=== PATIENT | male | born 1975 | race Caucasian/White ===

== ENCOUNTER 2017-08-07 17:24 | Emergency (ER) | payer BC, SELFPAY ==
[2017-08-07 17:30] VITALS: BP 165/99; PULSE 124; RESP 20; TEMP 36.7; O2SAT 98; BMI 22.5
--- NOTE | 2017-08-07 17:37 | CT_ITS ---
CT head/brain wo con Ordering Physician: Sheryl Huynh MD Patient Age: 41 years: Male HISTORY: ITS.REASON: tingling of L side of face TECHNIQUE: Routine axial CT head without contrast. Brain and bone windows performed and submitted to PACS. COMPARISON :Previous CT head from March 2014 comparison FINDINGS No acute intracranial findings. No hemorrhage. No territorial infarct. No appreciable change. No extra-axial collections. No evident mass or mass effect. The ventricles and basal cisterns appear clear unremarkable. The posterior fossa appears satisfactory. There is an old fracture at the medial wall of left orbit/, with minimal fat between to the lamina papyracea into the ethmoid air cell region.. However this This is old feature unchanged since 2013 reflects old trauma. Otherwise CT bone windows demonstrate the skull to be intact &. Unremarkable. The visualized paranasal sinuses are clear. Mastoid air cells adequately developed with with only scant opacification of a few mastoid air cells towards mastoid tip region on left, barely evident and unchanged since 2014 mastoid air cells towards the left mastoid tip on reflecting scant minor mastoid changes unchanged since 2013 . Moderate cerumen left external auditory canal. Right external auditory canal with likely tiny amount cerumen near the the TM; less likely,tiny developing cholesteatoma IMPRESSION ====== .. No acute intracranial findings. Brain within normal limits. With No significant change since 2013 . incidental observations in text.:. Old fracture medial wall left orbit wall unchanged since 2013
--- NOTE | 2017-08-07 19:12 | PC.NURSE ---
shift change report given to JessicaRN
--- NOTE | 2017-08-07 19:12 | HMH.EDNEU ---
ED Disposition Clinical Impression: CVA (cerebral vascular accident), Hypertension, Tobacco abuse, Non-compliance Disposition: Xfer Short-Term Hosp Condition on Discharge: Fair Forms: Transfer Record - ED - Critical Care Critical Care Time: No Attestation: On 08/07/17, the high probability of a clinically significant, sudden or life threatening deterioration of the following system(s) required my full and direct attention, intervention and personal management. The time I documented below is in addition to time spent performing reported procedures but includes the following listed in this critical care notation. Medical Decision Making - Gus Inquiry Pt receiving controlled substance: No Gus was queried for this patient: No Vital Signs: 08/07/17 17:30 Temperature 98.0 F Temperature Source Oral Pulse Rate [Right Brachial] 124 H Respiratory Rate 20 Blood Pressure [Right Arm] 165/99 Blood Pressure Mean [Right Arm] 121 Blood Pressure Source [Right Arm] Automatic Cuff Blood Pressure Position [Right Arm] Sitting 02 Sat by Pulse Oximetry 98 Oxygen Delivery Method Room Air - Lab Data Lab Results 08/07/17 19:16: POC Glucose 95 08/07/17 19:20: WBC 12.5 H, RBC 4.72, Hgb 14.2, Hct 42.7, MCV 90.5, MCH 30.1, MCHC 33.3, RDW 13.4, Plt Count 311, MPV 6.9 L, Neut % (Auto) 56.3, Lymph % (Auto) 33.3, [place] % (Auto) 8.4, Eos % (Auto) 1.6, Baso % (Auto) 0.3, Neut # (Auto) 7.0, Lymph # (Auto) 4.2, [place] # (Auto) 1.1 H, Eos # (Auto) 0.2, Baso # (Auto) 0.0 Result diagrams: 08/07/17 19:20 Orders (Tests/Meds): ED MEDICATIONS Discontinued Medications Generic Name Dose Route Start Last Admin Trade Name Freq PRN Reason Stop Dose Admin Aspirin 325 mg 08/07/17 19:20 08/07/17 19:24 Aspirin Ec 325mg Tablet PO 08/07/17 19:21 325 mg ONCE ONE Administration ORDERS Category Date Time Status Cardiac Enzymes Stat Lab 08/07/17 19:20 Received Comprehensive Metabolic Panel Stat Lab 08/07/17 19:20 Received Drug Screen,Urine Stat Lab 08/07/17 19:35 Received Ethyl Alcohol Stat Lab 08/07/17 19:20 Received PT/PTT Stat Lab 08/07/17 19:20 Received ECG Request by /Evan Stat Y 08/07/17 19:10 Ordered - CT Data CT Scan: Head Time Received: 19:[address] Reviewed: Yes: I have viewed the radiologist's interpretation Medical Decision Narrative: The patient reports that he had a TIA 6 years ago, quit using his aspirin. I called [facility] stroke service spoke with Dr. Burns who accepted the patient for transfer. 2000 patient remained remained neurologically and hemodynamically stable until transfered. The patient was given 1 enteric-coated aspirin [address] Burns's recommendation. Neuro HPI - General Chief Complaint: Weakness Stated Complaint: Facial Tingling/Motor Skills Lagging Time Seen by Provider: 08/07/17 17:40 Mode of Arrival: Ambulatory Limitations: No Limitations Description of Symptoms (Recalled from ER Triage Doc. by RN): Pt states face has felt flush since yesterday, states has had tingling on L side of face that began aroun 1430 today. Pt states he has felt off today, states pt was attempting to grab keys out of her hand but was unable to states pt seemed off like he didnt know how to grab the keys, states pt grabbed her whole hand. Pt states he checked out while [facility]. - History of Present Illness HPI Narrative: 41 years old white male smoker with history of TIA 6 years ago. He has been experiencing facial flushing for the past 24 hours, 4 PM today when he had an episode of agnosia to the keys in his left hand associated with confusion. The episode resolved and he came to the ED for evaluation. He denies having weakness loss of urine or bowel control. Onset (ago): hour(s) (Symptoms started yesterday and worse at 4 PM.) Timing confirmed by: spouse History of same: Yes Severity: mild Quality: numb Re
--- NOTE | 2017-08-07 19:12 | PC.NURSE ---
MAXI SINGH contacting [facility], stroke team
--- NOTE | 2017-08-07 19:16 | ED_ITS ---
ED Disposition Clinical Impression: CVA (cerebral vascular accident), Hypertension, Tobacco abuse, Non-compliance Disposition: Xfer Short-Term Hosp Condition on Discharge: Fair Forms: Transfer Record - ED - Critical Care Critical Care Time: No Attestation: On 08/07/17, the high probability of a clinically significant, sudden or life threatening deterioration of the following system(s) required my full and direct attention, intervention and personal management. The time I documented below is in addition to time spent performing reported procedures but includes the following listed in this critical care notation. Medical Decision Making - Gus Inquiry Pt receiving controlled substance: No Gus was queried for this patient: No Vital Signs: 08/07/17 17:30 Temperature 98.0 F Temperature Source Oral Pulse Rate [Right Brachial] 124 H Respiratory Rate 20 Blood Pressure [Right Arm] 165/99 Blood Pressure Mean [Right Arm] 121 Blood Pressure Source [Right Arm] Automatic Cuff Blood Pressure Position [Right Arm] Sitting 02 Sat by Pulse Oximetry 98 Oxygen Delivery Method Room Air - Lab Data Lab Results 08/07/17 19:16: POC Glucose 95 08/07/17 19:20: WBC 12.5 H, RBC 4.72, Hgb 14.2, Hct 42.7, MCV 90.5, MCH 30.1, MCHC 33.3, RDW 13.4, Plt Count 311, MPV 6.9 L, Neut % (Auto) 56.3, Lymph % (Auto ) 33.3, [place] % (Auto) 8.4, Eos % (Auto) 1.6, Baso % (Auto) 0.3, Neut # (Auto) 7.0, Lymph # (Auto) 4.2, [place] # (Auto) 1.1 H, Eos # (Auto) 0.2, Baso # (Auto) 0.0 Result diagrams: 08/07/17 19:20 Orders (Tests/Meds): ED MEDICATIONS Discontinued Medications Generic Name Dose Route Start Last Admin Trade Name Freq PRN Reason Stop Dose Admin Aspirin 325 mg 08/07/17 19:20 08/07/17 19:24 Aspirin Ec 325mg Tablet PO 08/07/17 19:21 325 mg ONCE ONE Administration ORDERS Category Date Time Status Cardiac Enzymes Stat Lab 08/07/17 19:20 Received Comprehensive Metabolic Panel Stat Lab 08/07/17 19:20 Received Drug Screen,Urine Stat Lab 08/07/17 19:35 Received Ethyl Alcohol Stat Lab 08/07/17 19:20 Received PT/PTT Stat Lab 08/07/17 19:20 Received ECG Request by /Evan Stat Y 08/07/17 19:10 Ordered - CT Data CT Scan: Head Time Received: 19:[address] Reviewed: Yes: I have viewed the radiologist's interpretation Medical Decision Narrative: The patient reports that he had a TIA 6 years ago, quit using his aspirin. I called [facility] stroke service spoke with Dr. Burns who accepted the patient for transfer. 2000 patient remained remained neurologically and hemodynamically stable until transfered. The patient was given 1 enteric-coated aspirin [address] Burns's recommendation. Neuro HPI - General Chief Complaint: Weakness Stated Complaint: Facial Tingling/Motor Skills Lagging Time Seen by Provider: 08/07/17 17:40 Mode of Arrival: Ambulatory Limitations: No Limitations Description of Symptoms (Recalled from ER Triage Doc. by RN): Pt states face has felt flush since yesterday, states has had tingling on L side of face that began aroun 1430 today. Pt states he has felt off today, states pt was attempting to grab keys out of her hand but was unable to states pt seemed off like he didnt know how to grab the keys, states
--- NOTE | 2017-08-07 19:21 | PC.NURSE ---
MD on the phone with [facility] Pt. accepted at [facility]
[2017-08-07 19:23] LABS: POC Glucose,Bedside 95 mg/dL (70-110)
[2017-08-07 19:32] LABS: Basophils % 0.3 % (0.1-2.0); Eosinophils # 0.2 K/mm3 (0.0-0.4); Eosinophils % 1.6 % (0.1-12.0); Hematocrit 42.7 % (42.0-52.0); Hemoglobin 14.2 g/dL (14.1-18.0); Lymphocytes # 4.2 K/mm3 (0.7-4.5); Lymphocytes % 33.3 K/mm3 (10-50); Mean Corpuscular HGB Conc 33.3 g/dL (31.8-35.4); Mean Corpuscular Hemoglobin 30.1 pg (27.0-31.2); Mean Corpuscular Volume 90.5 fl (80-94); Mean Platelet Volume 6.9 fl (7.4-10.4); Monocytes # 1.1 K/mm3 (0.1-1.0); Monocytes % 8.4 % (1.7-9.3); Neutrophils % 56.3 % (37.0-80.0); Platelet Count 311 K/mm3 (142-424); Red Blood Count 4.72 M/mm3 (4.60-6.20); Red Cell Distribution Width 13.4 % (11.5-17.5); White Blood Count 12.5 K/mm3 (4.8-10.8)
[2017-08-07 19:37] LABS: INR 0.94 (0.9-1.1); Prothrombin Time 10.1 seconds (9.4-11.8)
--- NOTE | 2017-08-07 19:54 | PC.NURSE ---
[facility] was notified of transfer.
[2017-08-07 19:59] LABS: Amphetamine/Metha Screen,Urine Negative ng/mL (<1000); Barbiturates Screen,Urine Negative ng/mL (<200); Benzodiazepines Screen,Urine Negative ng/mL (200); Cannabinoid Screen,Urine Negative ng/mL (<50); Cocaine Screen,Urine Negative ng/g (<300); Methadone Screen,Urine Negative ng/mL (<300); Opiate Screen,Urine Negative ng/mL (<300); Phencyclidine Screen,Urine Negative ng/mL (<25)
[2017-08-07 20:01] LABS: Alanine Aminotransferase 29 U/L (12-78); Albumin Level 4.1 gm/dL (3.4-5.0); Albumin/Globulin Ratio 1.2 (1.1-1.8); Alkaline Phosphatase 66 U/L (46-116); Anion Gap 10.7 mEq/L (5-15); Aspartate Amino Transferase 12 U/L (15-37); Bilirubin,Total 0.3 mg/dL (0.2-1.0); Blood Urea Nitrogen 16 mg/dL (7-18); CKMB Relative Index 2.1 U/L (0-4.0); Calcium 8.9 mg/dL (8.5-10.1); Carbon Dioxide 30 mmol/L (21.0-32.0); Chloride 101 mmol/L (98-107); Creatine Kinase 43 U/L (39-308); Creatine Kinase MB 0.9 ng/ml (0.0-3.6); Creatinine Clearance Estimated 122 mL/min (0-300); Creatinine,Serum 0.75 mg/dL (0.70-1.30); Estimated Glomerular Filt Rate 114 ml/min (>60); GFR (African American) 138 ML/MIN (>60); Globulin 3.4 gm/dl (1.3-3.2); Glucose 98 mg/dL (74-106); Potassium 3.7 mmoL/L (3.5-5.1); Sodium 138 mmol/L (136-145); Total Protein,Serum 7.5 gm/dL (6.4-8.2); Troponin I < 0.02 ng/ml (0.00-0.06)
[2017-08-07 20:05] LABS: Ethyl Alcohol 0 mg/dL (0-99)
--- NOTE | 2017-08-07 20:06 | PC.NURSE ---
There will be a delay in transferring this patient to [facility] because of a trauma patient transfer. Pt. is aware and ok with the delay.
[2017-08-07 21:26] VITALS: BP 160/98; PULSE 86; O2SAT 97
[2017-08-07 21:43] VITALS: BP 131/92; PULSE 88; RESP 14; O2SAT 97
[2017-08-07 22:32] VITALS: BP 146/95; PULSE 90; RESP 16; TEMP 36.7; O2SAT 97
[2017-08-07 22:40] VITALS: BP 146/95; PULSE 90; RESP 16; TEMP 36.7; O2SAT 97
== END 2017-08-07 22:40 | disposition short-term general hospital (02) ==
PROVIDERS: Emergency Provider Emergency Medicine; Family Provider Internal Medicine Adolescent Medicine
DX: I63.9 Cerebral infarction, unspecified (principal); I10 Essential (primary) hypertension; F17.210 Nicotine dependence, cigarettes, uncomplicated; Z88.0 Allergy status to penicillin
CPT/HCPCS: 70450; 80053; 80305; 82550; 82553; 82962; 84484; 85025; 85610; 85730; 93005; 99284

== ENCOUNTER → 2017-11-24 10:28 | Outpatient (REF) | payer BC, SELFPAY ==
[2017-11-24 17:41] LABS: Basophils # 0.1 K/mm3 (0-0.2); Basophils % 0.7 % (0.1-2.0); Eosinophils # 0.1 K/mm3 (0.0-0.4); Eosinophils % 1.6 % (0.1-12.0); Hematocrit 41.2 % (42.0-52.0); Hemoglobin 13.2 g/dL (14.1-18.0); Lymphocytes % 27.7 K/mm3 (10-50); Mean Corpuscular HGB Conc 32.1 g/dL (31.8-35.4); Mean Corpuscular Hemoglobin 29.6 pg (27.0-31.2); Mean Platelet Volume 9.1 fl (7.4-10.4); Monocytes # 0.5 K/mm3 (0.1-1.0); Monocytes % 6.7 % (1.7-9.3); Neutrophils # 4.5 K/mm3 (1.8-7.8); Neutrophils % 63.3 % (37.0-80.0); Platelet Count 265 K/mm3 (142-424); Red Blood Count 4.48 M/mm3 (4.60-6.20); Red Cell Distribution Width 12.8 % (11.5-17.5); White Blood Count 7.2 K/mm3 (4.8-10.8)
[2017-11-24 19:07] LABS: Erythrocyte Sedimentation Rate 8 mm/hr (0-15)
[2017-11-24 20:05] LABS: Alanine Aminotransferase 26 U/L (12-78); Albumin Level 4.4 gm/dL (3.4-5.0); Albumin/Globulin Ratio 1.5 (1.1-1.8); Alkaline Phosphatase 67 U/L (46-116); Anion Gap 9.2 mEq/L (5-15); Aspartate Amino Transferase 12 U/L (15-37); Bilirubin,Total 0.5 mg/dL (0.2-1.0); Blood Urea Nitrogen 10 mg/dL (7-18); Calcium 9.4 mg/dL (8.5-10.1); Carbon Dioxide 29 mmol/L (21.0-32.0); Chloride 106 mmol/L (98-107); Chol/HDL Ratio 5.7 (1-3.5); Cholesterol 187 mg/dL (140-200); Creatinine,Serum 0.87 mg/dL (0.70-1.30); Estimated Glomerular Filt Rate 96 ml/min (>60); Free T4 (Free Thyroxine) 0.94 ng/dl (0.76-1.46); GFR (African American) 116 ML/MIN (>60); Glucose 89 mg/dL (74-106); HDL Cholesterol 33 mg/dL (27-67); LDL Cholesterol 127 mg/dL (0-130); Potassium 4.2 mmoL/L (3.5-5.1); Sodium 140 mmol/L (136-145); Thyroid Stimulating Hormone 0.92 uIU/ml (0.358-3.740); Total Protein,Serum 7.4 gm/dL (6.4-8.2); Triglycerides 137 mg/dL (30-200); VLDL Cholesterol 27 mg/dL (0-40)
== END ==
LOC: LAB 10:28
PROVIDERS: Visit Provider Emergency Medicine
DX: I10 Essential (primary) hypertension (principal)
CPT/HCPCS: 80053; 80061; 84439; 84443; 85025; 85651

== ENCOUNTER → 2018-01-21 15:05 | Outpatient (CLI) | payer BC, SELFPAY ==
--- NOTE | 2018-01-21 15:08 | XR_ITS ---
XR chest 2V HISTORY: Shortness of breath ITS.REASON: shortness of breath ORDERING PHYSICIAN: Yoshi Gusman MD PATIENT AGE: 42 years COMPARISON: Portable upright chest 10/31/2013 FINDINGS: The cardiomediastinal silhouette and pulmonary vascularity are within normal limits. The lungs are clear without infiltrates, suspicious nodules, or pleural effusions. No acute bony abnormalities. Again noted is prominent dextroscoliotic curvature of the thoracic spine.. IMPRESSION: Negative chest, no acute finding
== END ==
PROVIDERS: PCP Emergency Medicine; Visit Provider Emergency Medicine
DX: R06.02 Shortness of breath (principal)
CPT/HCPCS: 71046

== ENCOUNTER → 2018-03-08 17:57 | Outpatient (CLI) | payer BC, SELFPAY ==
[2018-03-08 19:01] LABS: Amphetamine/Metha Screen,Urine Negative ng/mL (<1000); Barbiturates Screen,Urine Negative ng/mL (<200); Benzodiazepines Screen,Urine Negative ng/mL (<200); Cannabinoid Screen,Urine Negative ng/mL (<50); Cocaine Screen,Urine Negative ng/mL (<300); Methadone Screen,Urine Negative ng/mL (<300); Opiate Screen,Urine Positive ng/mL (<300); Phencyclidine Screen,Urine Negative ng/mL (<25)
== END ==
PROVIDERS: Visit Provider Emergency Medicine
DX: Z79.899 Other long term (current) drug therapy (principal)
CPT/HCPCS: 80305

== ENCOUNTER 2018-10-09 20:32 | Emergency (ER) | payer BC, SELFPAY ==
[2018-10-09 20:41] VITALS: BP 136/89; PULSE 73; RESP 16; TEMP 36.8; O2SAT 100; BMI 20.3
--- NOTE | 2018-10-09 20:48 | XR_ITS ---
XR ankle RT min 3V HISTORY: Posttraumatic pain ITS.REASON: ROLLED ANKLE ORDERING PHYSICIAN: Samira Graham APRN PATIENT AGE: 43 years Comparison: None FINDINGS: No fracture or dislocation. No lytic or blastic change. There is normal mineralization.. The joint spaces are well-preserved. No significant degenerative/arthritic changes. No erosive changes evident. IMPRESSION: Negative ankle, no acute finding
--- NOTE | 2018-10-09 20:48 | XR_ITS ---
XR foot RT min 3V HISTORY: Pain following injury ITS.REASON: ROLLED IT ORDERING PHYSICIAN: Samira Graham APRN PATIENT AGE: 43 years COMPARISON: None FINDINGS: No fracture or dislocation. No lytic or blastic change. There is normal mineralization.. The joint spaces are well-preserved. No significant degenerative/arthritic changes. No erosive changes evident. There is some soft tissue splint overlying the medial aspect of the interphalangeal joint of the toe with focal increased soft tissue density at this region. Please correlate with physical exam IMPRESSION: 1. No acute fracture. 2. Increased soft tissue density at the medial aspect of the interphalangeal joint of the great toe suggesting a skin or subcutaneous lesion which needs correlation with physical exam otherwise negative
[2018-10-09 21:06] VITALS: BP 136/89; PULSE 73; RESP 16; TEMP 36.8; O2SAT 100; BMI 20.3
--- NOTE | 2018-10-09 21:13 | HMH.EDUTC ---
[facility] [place] Disposition Clinical Impression: Ankle sprain Qualifiers: Encounter type: initial encounter Involved ligament of ankle: unspecified ligament Laterality: right Qualified Code(s): S93.401A - Sprain of unspecified ligament of right ankle, initial encounter Disposition: Home, Self-Care Condition on Discharge: Good Instructions: How To Perform RICE (Rest, Ice, Compress, Elevate) Additional Instructions: *RICE, Rest the extremity, Ice 15-20 minutes 3-4 times daily, Compress- wear the wayne wrap as discussed as much as possible to help reduce swelling and pain, Elevate the extremity when at rest *Wayne wrap is for support and help control swelling, use it except in the shower. Be sure that is not to tight but not to loose either *Elevate when resting *Ibuprofen every 6-8 hours as needed for pain an inflammation. If need something more can take Tylenol in between doses of Ibuprofen to help Immediately follow up with your family doctor for new or worsening of symptoms, or no noticeable improvement over the next 3-5 days You may call back to the [facility] in the Morning for official reading of your ankle and foot xray Follow up with Dr Fournier for further evaluation and treatment of right ankle pain Return if needed Straight to ER if any life threatening symptoms Referrals: Yoshi Gusman MD [Primary Care Provider] - As needed Kinga Fournier DPM [Staff Physician] - Forms: Work/School Release Time of Disposition: 21:27 Medical Decision Making - Gus Inquiry Pt receiving controlled substance: No Gus was queried for this patient: No Vital Signs: 10/09/18 20:41 10/09/18 21:06 Temperature 98.3 F 98.3 F Temperature Source Oral Oral Pulse Rate [Right] 73 73 Respiratory Rate 16 16 Blood Pressure [Right Arm] 136/89 136/89 Blood Pressure Mean [Right Arm] 104 104 Blood Pressure Source [Right Arm] Automatic Cuff Automatic Cuff Blood Pressure Position [Right Arm] Sitting Sitting 02 Sat by Pulse Oximetry 100 100 Oxygen Delivery Method Room Air Room Air Orders (Tests/Meds): ORDERS Category Date Time Status XR ankle RT min 3V Stat Exams 10/09/18 20:48 Taken XR foot RT min 3V Stat Exams 10/09/18 20:48 Taken - Radiology Data #1 Image(s): Ankle, Foot/Toes Image Reviewed: Yes I reviewed the patient's radiology image Preliminary Findings: No Fracture Seen No acute finding Will place in walking boot crutches and have patient follow up with Dr Fournier [facility] [place] HPI - [place] [id number] @1730 Injured R Ankle Time Seen by Provider: 10/09/18 21:13 Mode of Arrival: Family Vehicle Source of Information: Patient Limitations: No Limitations Description of Symptoms (Recalled from Triage Doc. by RN): Pt states he rolled his right ankle on wednesday, continues to have pain today HEENT Symptoms (Recalled from RN notes): No Resp Symptoms (Recalled from RN notes): No Skin Symptoms (Recalled from RN notes): No MS Symptoms (Recalled from RN notes): Yes Functional Status (Recalled from RN notes): N/A - History of Present Illness Provider Complaint: Patient state that he was walking on hill/incline on Wednesday when he rolled his right ankle State that ever since he has been having pain in his right ankle ever since States that he has been walking on it but when he walks on it bare foot the pain worsens - Related Data Previous Rx's Medication Instructions Recorded clonazepam 0.5 mg tablet 0.5 mg PO BID #60 tab 03/08/18 escitalopram 10 mg tablet 10 mg PO DAILY #90 tab 03/08/18 trazodone 50 mg tablet 50 mg PO DAILY #90 tab 03/08/18 Allergies Allergy/AdvReac Type Severity Reaction Status Date / Time Penicillins Allergy Verified 10/09/18 21:09 - Worker's Comp Is this a Worker's Comp case?: No [facility] History - Hepatitis A Screen Drug use history?: No High risk sexual behaviors?: No History of sexually transmitted infection?: No Currently employed?: No Childcare worker?: No Do you have indoor plumbing?:
--- NOTE | 2018-10-09 21:16 | ED_ITS ---
[facility] [place] Disposition Clinical Impression: Ankle sprain Qualifiers: Encounter type: initial encounter Involved ligament of ankle: unspecified ligament Laterality: right Qualified Code(s): S93.401A - Sprain of unspecified ligament of right ankle, initial encounter Disposition: Home, Self-Care Condition on Discharge: Good Instructions: How To Perform RICE (Rest, Ice, Compress, Elevate) Additional Instructions: *RICE, Rest the extremity, Ice 15-20 minutes 3-4 times daily, Compress- wear the wayne wrap as discussed as much as possible to help reduce swelling and pain, Elevate the extremity when at rest *Wayne wrap is for support and help control swelling, use it except in the shower. Be sure that is not to tight but not to loose either *Elevate when resting *Ibuprofen every 6-8 hours as needed for pain an inflammation. If need something more can take Tylenol in between doses of Ibuprofen to help Immediately follow up with your family doctor for new or worsening of symptoms, or no noticeable improvement over the next 3-5 days You may call back to the [facility] in the Morning for official reading of your ankle and foot xray Follow up with Dr Fournier for further evaluation and treatment of right ankle pain Return if needed Straight to ER if any life threatening symptoms Referrals: Yoshi Gusman MD [Primary Care Provider] - As needed Kinga Fournier DPM [Staff Physician] - Forms: Work/School Release Time of Disposition: 21:27 Medical Decision Making - Gus Inquiry Pt receiving controlled substance: No Gus was queried for this patient: No Vital Signs: 10/09/18 20:41 10/09/18 21:06 Temperature 98.3 F 98.3 F Temperature Source Oral Oral Pulse Rate [Right] 73 73 Respiratory Rate 16 16 Blood Pressure [Right Arm] 136/89 136/89 Blood Pressure Mean [Right Arm] 104 104 Blood Pressure Source [Right Arm] Automatic Cuff Automatic Cuff Blood Pressure Position [Right Arm] Sitting Sitting 02 Sat by Pulse Oximetry 100 100 Oxygen Delivery Method Room Air Room Air Orders (Tests/Meds): ORDERS Category Date Time Status XR ankle RT min 3V Stat Exams 10/09/18 20:48 Taken XR foot RT min 3V Stat Exams 10/09/18 20:48 Taken - Radiology Data #1 Image(s): Ankle, Foot/Toes Image Reviewed: Yes I reviewed the patient's radiology image Preliminary Findings: No Fracture Seen No acute finding Will place in walking boot crutches and have patient follow up with Dr Fournier [facility] [place] HPI - [place] Stated [place]: [place] [id number] @1730 Injured R Ankle Time Seen by Provider: 10/09/18 21:13 Mode of Arrival: Family Vehicle Source of Information: Patient Limitations: No Limitations Description of Symptoms (Recalled from Triage Doc. by RN): Pt states he rolled his right ankle on wednesday, continues to have pain today HEENT Symptoms (Recalled from RN notes): No Resp Symptoms (Recalled from RN notes): No Skin Symptoms (Recalled from RN notes): No MS Symptoms (Recalled from RN notes): Yes Functional Status (Recalled from RN notes): N/A - History of Present Illness Provider Complaint: Patient state that he was walking on hill/incline on Wednesday when he rolled his right ankle State that ever since he has been having pain in his right ankle ever since States that he has been walking on it but when he walks on it bare foot the pain worsens - Related Data
[2018-10-09 21:42] VITALS: BP 140/83; PULSE 64; RESP 20; TEMP 37.1; O2SAT 100
== END 2018-10-09 21:44 | disposition home or self-care (01) ==
PROVIDERS: Emergency Provider Nurse Practitioner; PCP Emergency Medicine
DX: S93.401A Sprain of unspecified ligament of right ankle, initial encounter (principal); W17.81XA Fall down embankment (hill), initial encounter; Y92.89 Other specified places as the place of occurrence of the external cause; F17.210 Nicotine dependence, cigarettes, uncomplicated; Z88.0 Allergy status to penicillin
CPT/HCPCS: 29515; 73610; 73630; 99203

== ENCOUNTER → 2018-11-25 14:08 | Outpatient (CLI) | payer BC, SELFPAY ==
[2018-11-28 20:15] LABS: HSV, IgM I/II Combination 2.88 Ratio (0.00-0.90)
== END ==
PROVIDERS: Visit Provider Nurse Practitioner Family
DX: Z20.2 Contact with and (suspected) exposure to infections with a predominantly sexual mode of transmission (principal)
CPT/HCPCS: 36415; 86790

== ENCOUNTER 2019-11-02 14:00 | Emergency (ER) | payer OTHER, SELFPAY ==
[2019-11-02 14:01] VITALS: BP 116/86; BP 140/87; PULSE 66; PULSE 87; RESP 16; RESP 20; TEMP 37; O2SAT 100; O2SAT 99; BMI 20.3
--- NOTE | 2019-11-02 14:11 | CT_ITS ---
PROCEDURE: CT ABDOMEN PELVIS W CON CLINICAL INDICATION: abd pain COMPARISON: No exams were available for comparison TECHNIQUE: IV Contrast: 75ML OPTIRAY 350 Oral Contrast None Axial images obtained with sagittal and coronal reformats. All CT scans at the facility use one or more dose reduction, viz: automated exposure control, ma/kV adjustment per patient size (including targeted exams where dose is matched to indication, i.e. head), or iterative reconstruction technique. FINDINGS: CT scan abdomen with contrast: Lung bases are clear. Moderate thoracolumbar scoliosis is noted. The enhanced liver, gallbladder, adrenal glands, kidneys, pancreas, and spleen are unremarkable except for scattered splenic calcifications. Aorta, small and large bowel, and area of the appendix, soft tissues and bony structures are otherwise unremarkable. CT scan of the pelvis with contrast: The prostate, seminal vesicles, bladder, soft tissues, and bony structures are unremarkable for mass lesions. IMPRESSION: No mass lesions Dictated by: Aftab Mcginnis 11/02/2019 14:50 Electronically signed by Aftab Mcginnis in [place] 11/02/2019 14:50
[2019-11-02 14:38] LABS: Basophils # 0.1 K/mm3 (0-0.2); Basophils % 0.8 % (0.1-2.0); Eosinophils % 0.4 % (0.1-12.0); Hematocrit 48.5 % (42.0-52.0); Hemoglobin 16.1 g/dL (14.1-18.0); Lymphocytes # 2.3 K/mm3 (0.7-4.5); Lymphocytes % 22.9 % (10-50); Mean Corpuscular HGB Conc 33.2 g/dL (31.8-35.4); Mean Corpuscular Hemoglobin 29.5 pg (27.0-31.2); Mean Corpuscular Volume 88.8 fl (80-94); Mean Platelet Volume 7.1 fl (7.4-10.4); Monocytes # 1.1 K/mm3 (0.1-1.0); Monocytes % 10.7 % (1.7-9.3); Neutrophils # 6.6 K/mm3 (1.8-7.8); Neutrophils % 65.3 % (37.0-80.0); Platelet Count 291 K/mm3 (142-424); Red Blood Count 5.46 M/mm3 (4.60-6.20); Red Cell Distribution Width 13.7 % (11.5-17.5); White Blood Count 10.1 K/mm3 (4.8-10.8)
[2019-11-02 14:45] LABS: Chloride 105 mmol/L (98-107); Potassium 4.1 mmoL/L (3.5-5.1); Sodium 139 mmol/L (136-145)
[2019-11-02 14:47] LABS: Amylase 42 U/L (30-110)
[2019-11-02 14:48] LABS: Alanine Aminotransferase 61 U/L (12-78); Albumin Level 5.3 g/dl (3.5-5.0); Albumin/Globulin Ratio 1.5 (1.1-1.8); Alkaline Phosphatase 78 U/L (38-126); Anion Gap 14.1 mEq/L (5-15); Aspartate Amino Transferase 40 U/L (17-59); Bilirubin,Total 1.3 mg/dl (0.2-1.3); Blood Urea Nitrogen 22 mg/dl (9-20); Calcium 9.7 mg/dl (8.4-10.2); Carbon Dioxide 24 mmol/L (22.0-30.0); Creatinine Clearance Estimated 112 mL/min (50-200); Estimated Glomerular Filt Rate 105 ml/min (>60); GFR (African American) 126 ML/MIN (>60); Globulin 3.5 g/dL (1.3-3.2); Glucose 114 mg/dl (74-100); Lipase 25 U/L (23-300); Total Protein,Serum 8.8 g/dl (6.3-8.2)
--- NOTE | 2019-11-02 14:59 | HMH.EDGENADL ---
ED Disposition Clinical Impression: Gastroenteritis Disposition: Home, Self-Care Condition on Discharge: Good Instructions: DI for Diarrhea and Traveler's Diarrhea -- Adult, DI for Vomiting -- Adult Additional Instructions: Collect diarrhea sample at home and bring back to lab for testing Zofran as needed for nausea and vomiting. Follow-up with primary care doctor in 2 to 3 days. Additional instructions for ABDOMINAL PAIN: Return immediately if worsening abdominal pain, vomiting, shortness of breath, fever, vomiting of blood or abdominal distention. Prescriptions: Ondansetron [Zofran 4mg ODT] 4 mg PO TIDP PRN #10 tab.rapdis PRN Reason: Nausea And Vomiting Transmission Status: Received by [id number] Referrals: Yoshi Gusman MD [Primary Care Provider] - - Critical Care Critical Care Time: No Attestation: On 11/02/19, the high probability of a clinically significant, sudden or life threatening deterioration of the following system(s) required my full and direct attention, intervention and personal management. The time I documented below is in addition to time spent performing reported procedures but includes the following listed in this critical care notation. Medical Decision Making - Medical Records Medical records reviewed: Yes: I reviewed the patient's medical records. - Gus Inquiry Pt receiving controlled substance: No Vital Signs: 11/02/19 14:01 11/02/19 15:01 11/02/19 15:30 Temperature 98.6 F Temperature Source Oral Pulse Rate Pulse Rate [Right] 87 59 L 58 L Respiratory Rate 20 20 18 Blood Pressure Blood Pressure [Right Arm] 116/86 134/91 H 136/86 Blood Pressure Mean [Right Arm] 96 105 102 Blood Pressure Source Blood Pressure Source [Right Arm] Automatic Cuff Automatic Cuff Automatic Cuff Blood Pressure Position Blood Pressure Position [Right Arm] Sitting Supine Supine 02 Sat by Pulse Oximetry 99 100 100 Oxygen Delivery Method Room Air Room Air Room Air 11/02/19 16:00 11/02/19 16:37 Temperature 98.1 F Temperature Source Oral Pulse Rate 58 L Pulse Rate [Right] 58 L Respiratory Rate 18 18 Blood Pressure 136/92 H Blood Pressure [Right Arm] 136/92 H Blood Pressure Mean [Right Arm] 106 Blood Pressure Source Automatic Cuff Blood Pressure Source [Right Arm] Automatic Cuff Blood Pressure Position Sitting Blood Pressure Position [Right Arm] Supine 02 Sat by Pulse Oximetry 100 Oxygen Delivery Method Room Air Room Air - Lab Data Lab results reviewed: Yes: I reviewed the patient's lab results. Lab Results 11/02/19 14:30: Amylase 42 11/02/19 14:30: WBC 10.1, RBC 5.46, Hgb 16.1, Hct 48.5, MCV 88.8, MCH 29.5, MCHC 33.2, RDW 13.7, Plt Count 291, MPV 7.1 L, Neut % (Auto) 65.3, Lymph % (Auto) 22.9, [place] % (Auto) 10.7 H, Eos % (Auto) 0.4, Baso % (Auto) 0.8, Neut # (Auto) 6.6, Lymph # (Auto) 2.3, [place] # (Auto) 1.1 H, Eos # (Auto) 0.0, Baso # (Auto) 0.1 11/02/19 14:30: Sodium 139, Potassium 4.1, Chloride 105, Carbon Dioxide 24, Anion Gap 14.1, BUN 22 H, Creatinine 0.80, Estimated Creat Clear 112, Estimated GFR 105, Est GFR ( Amer) 126, Glucose 114 H, Calcium 9.7, Total Bilirubin 1.3, AST 40, ALT 61, Alkaline Phosphatase 78, Total Protein 8.8 H, Albumin 5.3 H, Globulin 3.5 H, Albumin/Globulin Ratio 1.5, Lipase 25 11/02/19 15:00: Urine Color Yellow, Urine Appearance Clear, Urine pH 6.5, Ur Specific [place] 1.010, Urine Protein Trace, Urine Glucose (UA) Negative, Urine Ketones Negative, Urine Blood Trace-l, Urine Nitrate Negative, Urine Bilirubin Negative, Urine Urobilinogen 0.2, Ur Leukocyte Esterase Negative, Urine RBC Occasional, Urine WBC None, Ur Squamous Epith Cells Occasional, Amorphous Sediment Trace, Urine Bacteria None Result diagrams: 11/02/19 14:30 11/02/19 14:30 Orders (Tests/Meds): ED MEDICATIONS Discontinued Medications Generic Name Dose Route Start Last Admin Trade Name Freq PRN Reason Stop Dose Admin Sodium Chl
[2019-11-02 15:01] VITALS: BP 134/91; PULSE 59; RESP 20; O2SAT 100
[2019-11-02 15:04] LABS: Microscopic, Urine URINE MICROSCOPIC (MICROSCOPIC)
[2019-11-02 15:05] LABS: Appearance,Urine CLEAR (Clear); Bilirubin,Urine Negative (Negative); Blood, Urine TRACE-L (Negative); Color,Urine YELLOW (Yellow); Glucose,Urine (UA) Negative (Negative); Ketones,Urine Negative (Negative); Leukocyte Esterase,Urine Negative (Negative); Nitrate,Urine Negative (Negative); PH,Urine 6.5 (5.0-8.5); Protein,Urine TRACE (Negative); Urobilinogen,Urine 0.2 EU/dl (0.2)
[2019-11-02 15:27] LABS: Amorphous Sediment,Urine Trace /lpf; RBC,Urine Occasional #/hpf (0-3); Squamous Epithelial Cell,Urine Occasional #/hpf (0-5)
[2019-11-02 15:30] VITALS: BP 136/86; PULSE 58; RESP 18; O2SAT 100
[2019-11-02 16:00] VITALS: BP 136/92; PULSE 58; RESP 18; O2SAT 100
--- NOTE | 2019-11-02 16:12 | PC.NURSE ---
Unable to produce diarrhea sample, notified
[2019-11-02 16:37] VITALS: BP 136/92; PULSE 58; RESP 18; TEMP 36.7; O2SAT 100
== END 2019-11-02 16:51 | disposition home or self-care (01) ==
PROVIDERS: Emergency Provider Emergency Medicine; PCP Emergency Medicine
DX: K52.9 Noninfective gastroenteritis and colitis, unspecified (principal); I10 Essential (primary) hypertension; Z86.73 Personal history of transient ischemic attack (TIA), and cerebral infarction without residual deficits; F17.210 Nicotine dependence, cigarettes, uncomplicated
CPT/HCPCS: 74177; 80053; 81001; 82150; 83690; 85025; 96365; 96375; 99284; J2405; Q9967

== ENCOUNTER → 2020-03-06 17:50 | Outpatient (CLI) | payer OTHER, SELFPAY ==
[2020-03-06 18:55] LABS: Basophils # 0.1 K/mm3 (0-0.2); Basophils % 0.8 % (0.1-2.0); Eosinophils # 0.3 K/mm3 (0.0-0.4); Eosinophils % 3.6 % (0.1-12.0); Hematocrit 42.4 % (42.0-52.0); Hemoglobin 13.9 g/dL (14.1-18.0); Lymphocytes # 2.9 K/mm3 (0.7-4.5); Lymphocytes % 38.7 % (10-50); Mean Corpuscular HGB Conc 32.8 g/dL (31.8-35.4); Mean Corpuscular Hemoglobin 29.5 pg (27.0-31.2); Mean Corpuscular Volume 89.8 fl (80-94); Mean Platelet Volume 8.7 fl (7.4-10.4); Monocytes # 0.6 K/mm3 (0.1-1.0); Monocytes % 8.2 % (1.7-9.3); Neutrophils # 3.7 K/mm3 (1.8-7.8); Neutrophils % 48.8 % (37.0-80.0); Platelet Count 295 K/mm3 (142-424); Red Blood Count 4.73 M/mm3 (4.60-6.20); Red Cell Distribution Width 13.4 % (11.5-17.5); White Blood Count 7.6 K/mm3 (4.8-10.8)
[2020-03-06 19:09] LABS: Alanine Aminotransferase 25 U/L (12-78); Albumin Level 4.5 g/dl (3.5-5.0); Albumin/Globulin Ratio 1.7 (1.1-1.8); Alkaline Phosphatase 90 U/L (38-126); Anion Gap 11.2 mEq/L (5-15); Aspartate Amino Transferase 34 U/L (17-59); Bilirubin,Total 0.6 mg/dl (0.2-1.3); Blood Urea Nitrogen 10 mg/dl (9-20); Calcium 9.6 mg/dl (8.4-10.2); Carbon Dioxide 29 mmol/L (22.0-30.0); Chloride 104 mmol/L (98-107); Cholesterol 167 mg/dl (140-200); Estimated Glomerular Filt Rate 122 ml/min (>60); GFR (African American) 148 ML/MIN (>60); Globulin 2.7 g/dL (1.3-3.2); Glucose 96 mg/dl (74-100); HDL Cholesterol 42 mg/dl (40-60); Potassium 4.2 mmoL/L (3.5-5.1); Sodium 140 mmol/L (136-145); Total Protein,Serum 7.2 g/dl (6.3-8.2); Triglycerides 121 mg/dl (30-150); VLDL Cholesterol 24 mg/dL (0-40)
[2020-03-06 19:21] LABS: Direct LDL Cholesterol 107.42 mg/dL (100-129)
[2020-03-06 19:26] LABS: Free T4 (Free Thyroxine) 1.16 ng/dl (0.78-2.19)
[2020-03-06 19:40] LABS: Thyroid Stimulating Hormone 1.13 uIU/mL (0.465-4.68)
== END ==
PROVIDERS: Visit Provider Emergency Medicine
DX: R53.83 Other fatigue (principal); M54.9 Dorsalgia, unspecified; I10 Essential (primary) hypertension; Z79.899 Other long term (current) drug therapy
CPT/HCPCS: 80053; 80061; 84439; 84443; 85025

== ENCOUNTER → 2020-04-24 17:36 | Outpatient (CLI) | payer OTHER, SELFPAY ==
--- NOTE | 2020-04-24 18:02 | XR_ITS ---
PROCEDURE: XR THORACIC SPINE 3V LUMBAR SPINE FIVE VIEWS CLINICAL INDICATION: thoracic back pain Pain between the scapula COMPARISON: CR TSP2 THORACIC SPINE AP LAT-2VIEW from 09/17/2014 CR XR LUMBAR SPINE MIN 4V from 04/24/2020 FINDINGS: Thoracic spine: There is moderate dextroscoliosis of the thoracolumbar spine measuring 43 degrees by the Royal technique. This has slightly increased previously measuring 38 degrees by the Royal technique. No obvious acute fracture or dislocation. No lytic or blastic change. There is some mild wedging along the left border T10 T9 and T8 which does not appear significantly changed. The spine is poorly demonstrated on the lateral view. Degenerative changes are present in the cervical spine is well. Lumbar spine: There is lumbosacral compensatory curvature convex left. No acute finding of the lumbar spine. IMPRESSION: Moderate to severe thoracolumbar scoliosis convex right slightly increased Dictated by: Ac Bee MD 04/25/2020 05:36 Ac Bee MD in [place] 04/25/2020 05:36
== END ==
PROVIDERS: PCP Emergency Medicine; Visit Provider Emergency Medicine
DX: M54.5 Low back pain (principal); M54.6 Pain in thoracic spine
CPT/HCPCS: 72072; 72110

== ENCOUNTER 2020-12-30 22:45 | Observation (INO) | payer OTHER, SELFPAY ==
[2020-12-30 22:45] VITALS: BMI 23.6
--- NOTE | 2020-12-30 22:47 | ECG_ITS ---
APPROVED REPORT Exam: Resting ECG HR:159 bpm ECG Measurements Heart Rate 159 AXES FL 120 P 43 QRSd 78 QRS 7 QT 306 T 119 QTc 497 Conclusion Sinus tachycardia Marked ST abnormality, possible inferior subendocardial injury Abnormal ECG Electronically signed by : Edgar Diaz MD 12/31/2020 17:34:37
--- NOTE | 2020-12-30 22:55 | PC.NURSE ---
Dr Gusman speaking with Dr Hanan with EKG
--- NOTE | 2020-12-30 22:58 | XR_ITS ---
PROCEDURE INFORMATION: Exam: XR Chest Exam date and time: 12/30/2020 10:58 PM Age: 45 years old Clinical indication: Other: Tachycardia; Patient HX: AMS TECHNIQUE: Imaging protocol: XR of the chest. Views: 1 view. COMPARISON: DX CXR2V XR chest 2V 01/21/2018 3:16 PM FINDINGS: Lungs: Patchy left basilar opacity seen. Pleural spaces: Unremarkable. No pleural effusion. No pneumothorax. Heart/Mediastinum: Unremarkable. No cardiomegaly. Bones/joints: Moderate scoliosis again seen. IMPRESSION: Patchy left basilar opacity worrisome for pneumonia
[2020-12-30 23:01] VITALS: BP 108/56; PULSE 174; RESP 24; TEMP 37.1; O2SAT 97; BMI 25.1
--- NOTE | 2020-12-30 23:01 | PC.NURSE ---
Cardizem drip started @ 10mg/hr
[2020-12-30 23:05] LABS: Microscopic, Urine URINE MICROSCOPIC (MICROSCOPIC)
[2020-12-30 23:06] LABS: Appearance,Urine CLEAR (Clear); Blood, Urine Negative (Negative); Color,Urine DK YELLOW (Yellow); Glucose,Urine (UA) Negative (Negative); Ketones,Urine Negative (Negative); Leukocyte Esterase,Urine Negative (Negative); Nitrate,Urine Negative (Negative); Protein,Urine Negative (Negative); Specific Gravity, Urine >= 1.030 (1.005-1.030)
[2020-12-30 23:07] LABS: Coronavirus 19, PCR Not Detected (NotDetected); Influenza A, PCR Not Detected (NotDetected); Influenza B, PCR Not Detected (NotDetected)
[2020-12-30 23:10] LABS: Basophils # 0.2 K/mm3 (0-0.2); Basophils % 1.7 % (0.1-2.0); Eosinophils # 0.7 K/mm3 (0.0-0.4); Eosinophils % 6.3 % (0.1-12.0); Hematocrit 41.7 % (42.0-52.0); Hemoglobin 13.5 g/dL (14.1-18.0); Lymphocytes # 5.2 K/mm3 (0.7-4.5); Lymphocytes % 50.3 % (10-50); Mean Corpuscular HGB Conc 32.5 g/dL (31.8-35.4); Mean Corpuscular Hemoglobin 28.7 pg (27.0-31.2); Mean Corpuscular Volume 88.3 fl (80-94); Mean Platelet Volume 7.6 fl (7.4-10.4); Monocytes # 0.8 K/mm3 (0.1-1.0); Monocytes % 7.3 % (1.7-9.3); Neutrophils # 3.6 K/mm3 (1.8-7.8); Neutrophils % 34.5 % (37.0-80.0); Platelet Count 309 K/mm3 (142-424); Red Blood Count 4.72 M/mm3 (4.60-6.20); Red Cell Distribution Width 13.4 % (11.5-17.5); White Blood Count 10.3 K/mm3 (4.8-10.8)
[2020-12-30 23:13] LABS: Alanine Aminotransferase 29 U/L (12-78); Albumin Level 4.7 g/dl (3.5-5.0); Albumin/Globulin Ratio 1.6 (1.1-1.8); Alkaline Phosphatase 81 U/L (38-126); Anion Gap 16.3 mEq/L (5-15); Aspartate Amino Transferase 33 U/L (17-59); Bilirubin,Total 0.6 mg/dl (0.2-1.3); Blood Urea Nitrogen 15 mg/dl (9-20); Carbon Dioxide 26 mmol/L (22.0-30.0); Chloride 101 mmol/L (98-107); Creatinine Clearance Estimated 105 mL/min (50-200); Estimated Glomerular Filt Rate 91 ml/min (>60); GFR (African American) 110 ML/MIN (>60); Globulin 2.9 g/dL (1.3-3.2); Glucose 151 mg/dl (74-100); MANUAL DIFFERENTIAL MANUAL DIFFERENTIAL (MANUAL DIFF); Potassium 3.3 mmoL/L (3.5-5.1); Sodium 140 mmol/L (136-145); Total Protein,Serum 7.6 g/dl (6.3-8.2)
[2020-12-30 23:14] LABS: Bilirubin,Urine 1+ (Negative)
[2020-12-30 23:18] LABS: C-Reactive Protein 3.2 mg/L (0-4)
[2020-12-30 23:18] LABS: RBC,Urine Occasional #/hpf (0-3); Squamous Epithelial Cell,Urine Occasional #/hpf (0-5); WBC,Urine Occasional #/hpf (0-3)
[2020-12-30 23:19] LABS: Eosinophils % 3 % (0-3); Lymphocytes % 45 % (10-50); Monocytes % 7 % (2-9); Neutrophils % 43 % (42-76); Platelet Estimate Normal; RBC Morphology Normal; Total Cells Counted 100
[2020-12-30 23:20] VITALS: BP 110/63; PULSE 140; RESP 12; O2SAT 94
[2020-12-30 23:29] LABS: Troponin I < 0.01 ng/ml (0.00-0.034)
--- NOTE | 2020-12-30 23:29 | HMH.EDOD ---
ED Disposition Clinical Impression: Scoliosis (and kyphoscoliosis), idiopathic Drug overdose Qualifiers: Encounter type: initial encounter Injury intent: accidental or unintentional Qualified Code(s): T50.901A - Poisoning by unspecified drugs, medicaments and biological substances, accidental (unintentional), initial encounter Atrial flutter Qualifiers: Atrial flutter type: unspecified Qualified Code(s): I48.92 - Unspecified atrial flutter CAP (community acquired pneumonia) Qualifiers: Laterality: left Lung location: lower lobe of lung Qualified Code(s): J18.9 - Pneumonia, unspecified organism Disposition: Admitted as Observation Condition on Discharge: Good Referrals: Yoshi Gusman MD [Primary Care Provider] - - Critical Care Critical Care Time: No Attestation: On 12/30/20, the high probability of a clinically significant, sudden or life threatening deterioration of the following system(s) required my full and direct attention, intervention and personal management. The time I documented below is in addition to time spent performing reported procedures but includes the following listed in this critical care notation. Medical Decision Making - Medical Records Medical records reviewed: Yes: I reviewed the patient's medical records. - Gus Inquiry Pt receiving controlled substance: No Vital Signs: 12/30/20 23:01 12/30/20 23:20 12/30/20 23:30 Temperature 98.8 F Temperature Source Oral Pulse Rate 140 H 145 H Pulse Rate [Right] 174 H Respiratory Rate 24 12 11 L Blood Pressure 110/63 112/62 Blood Pressure [Right Arm] 108/56 L Blood Pressure Mean 79 Blood Pressure Mean [Right Arm] 73 Blood Pressure Source [Right Arm] Automatic Cuff Blood Pressure Position [Right Arm] Supine 02 Sat by Pulse Oximetry 97 94 L 94 L Oxygen Delivery Method Room Air Room Air Nasal Cannula Oxygen Flow Rate (LPM) 2 12/30/20 23:40 12/30/20 23:50 12/30/20 23:57 Temperature Temperature Source Pulse Rate 131 H 124 H 124 H Pulse Rate [Right] Respiratory Rate 10 L 8 L 8 L Blood Pressure 98/57 L 98/57 L 98/59 L Blood Pressure [Right Arm] Blood Pressure Mean Blood Pressure Mean [Right Arm] Blood Pressure Source [Right Arm] Blood Pressure Position [Right Arm] 02 Sat by Pulse Oximetry 92 L 93 L 95 Oxygen Delivery Method Oxygen Flow Rate (LPM) 12/31/20 00:00 12/31/20 00:09 12/31/20 00:32 Temperature Temperature Source Pulse Rate 124 H 147 H 129 H Pulse Rate [Right] Respiratory Rate 12 11 L Blood Pressure 100/59 L 122/68 114/73 Blood Pressure [Right Arm] Blood Pressure Mean Blood Pressure Mean [Right Arm] Blood Pressure Source [Right Arm] Blood Pressure Position [Right Arm] 02 Sat by Pulse Oximetry 93 L 96 95 Oxygen Delivery Method Oxygen Flow Rate (LPM) 12/31/20 00:40 12/31/20 00:50 12/31/20 01:00 Temperature Temperature Source Pulse Rate 117 H 105 H 100 H Pulse Rate [Right] Respiratory Rate 10 L 9 L 6 L Blood Pressure 110/64 108/63 L 103/58 L Blood Pressure [Right Arm] Blood Pressure Mean Blood Pressure Mean [Right Arm] Blood Pressure Source [Right Arm] Blood Pressure Position [Right Arm] 02 Sat by Pulse Oximetry 91 L 89 L 92 L Oxygen Delivery Method Oxygen Flow Rate (LPM) 12/31/20 01:10 12/31/20 01:20 Temperature Temperature Source Pulse Rate 97 H 109 H Pulse Rate [Right] Respiratory Rate 11 L 10 L Blood Pressure 107/63 L 114/69 Blood Pressure [Right Arm] Blood Pressure Mean Blood Pressure Mean [Right Arm] Blood Pressure Source [Right Arm] Blood Pressure Position [Right Arm] 02 Sat by Pulse Oximetry 92 L 94 L Oxygen Delivery Method Oxygen Flow Rate (LPM) - Lab Data Lab results reviewed: Yes: I reviewed the patient's lab results. Lab Results 12/30/20 22:45: WBC 10.3, RBC 4.72, Hgb 13.5 L, Hct 41.7 L, MCV 88.3, MCH 28.7, MCHC 32.5, RDW 13.4, Plt Count 309, MP
[2020-12-30 23:30] VITALS: BP 112/62; PULSE 145; RESP 11; O2SAT 94
--- NOTE | 2020-12-30 23:30 | PC.NURSE ---
pt's set up password [id number]
[2020-12-30 23:32] LABS: Procalcitonin 0.065 ng/mL (0.0-2.0)
[2020-12-30 23:33] LABS: Erythrocyte Sedimentation Rate 13 mm/hr (0-15)
[2020-12-30 23:37] LABS: Amphetamine/Metha Screen,Urine Negative ng/ml (<1000); Benzodiazepines Screen,Urine Negative ng/ml (<200)
[2020-12-30 23:38] LABS: Barbiturates Screen,Urine Negative ng/ml (<200)
[2020-12-30 23:39] LABS: Cannabinoid Screen,Urine Negative ng/ml (<50); Methadone Screen,Urine Negative ng/ml (<300)
[2020-12-30 23:40] VITALS: BP 98/57; PULSE 131; RESP 10; O2SAT 92
[2020-12-30 23:40] LABS: Cocaine Screen,Urine Negative ng/ml (<300); Opiate Screen,Urine Positive ng/ml (<300)
[2020-12-30 23:41] LABS: Phencyclidine Screen,Urine Negative ng/ml (<25)
--- NOTE | 2020-12-30 23:45 | PC.NURSE ---
Pt's wallet was given to his
[2020-12-30 23:50] VITALS: BP 98/57; PULSE 124; RESP 8; O2SAT 93
[2020-12-30 23:57] VITALS: BP 98/59; PULSE 124; RESP 8; O2SAT 95
[2020-12-31] VITALS (19 sets, daily range): BP systolic 100–132; BP diastolic 58–81; PULSE 64–147; RESP 6–18; TEMP 36.7–37; O2SAT 89–100; BMI 25.2
--- NOTE | 2020-12-31 00:09 | CT_ITS ---
PROCEDURE INFORMATION: Exam: CT Head Without Contrast Exam date and time: 12/31/2020 12:09 AM Age: 45 years old Clinical indication: Altered mental status/memory loss; Additional info: AMS TECHNIQUE: Imaging protocol: Computed tomography of the head without contrast. 3D rendering (Not supervised by radiologist): MIP and/or 3D reconstructed images were created by the technologist. Radiation optimization: All CT scans at this facility use at least one of these dose optimization techniques: automated exposure control; mA and/or kV adjustment per patient size (includes targeted exams where dose is matched to clinical indication); or iterative reconstruction. COMPARISON: HEADWO CT head/brain wo con 08/07/2017 5:43 PM FINDINGS: Brain: Normal. No hemorrhage. Unremarkable white matter. No mass effect. Cerebral ventricles: No ventriculomegaly. Paranasal sinuses: Visualized sinuses are unremarkable. No fluid levels. Mastoid air cells: Visualized mastoid air cells are well aerated. Bones/joints: Unremarkable. No acute fracture. Soft tissues: Unremarkable. IMPRESSION: No acute intracranial abnormality.
--- NOTE | 2020-12-31 00:17 | PC.NURSE ---
Addendum entered by Marva Valadez, EMT 12/31/20 00:19: S. kala, RN with pt. Original Note: Pt going to rad at this time.
--- NOTE | 2020-12-31 00:37 | PC.NURSE ---
upon returning back from CT pt is now A&OX3 asking for something to drink
--- NOTE | 2020-12-31 00:42 | PC.NURSE ---
cardizem drip decreased to 5mg/hr
--- NOTE | 2020-12-31 01:17 | PC.NURSE ---
Cardizem GTT stopped, Pt in NSR 96, repeat EKG done
--- NOTE | 2020-12-31 01:19 | ECG_ITS ---
APPROVED REPORT Exam: Resting ECG HR:108 bpm ECG Measurements Heart Rate 108 AXES [place] 174 P 67 QRSd 82 QRS 62 QT 360 T 59 QTc 482 Conclusion Sinus tachycardia Otherwise normal ECG Electronically signed by : Edgar Diaz MD 01/01/2021 14:13:10
--- NOTE | 2020-12-31 01:26 | PC.NURSE ---
Pt speaking with his on the phone at this time
--- NOTE | 2020-12-31 01:36 | PC.NURSE ---
repeat trop sent to lab
[2020-12-31 02:13] LABS: Troponin I 0.01 ng/ml (0.00-0.034)
[2020-12-31 02:14] LABS: T4 (Thyroxine) 8.8 ug/dl (5.53-11.0)
--- NOTE | 2020-12-31 02:25 | PC.NURSE ---
PT ARRIVED TO FLOOR VIA W/C FROM ED W/STAFF AT [id number]
[2020-12-31 05:35] LABS: Basophils % 0.3 % (0.1-2.0); Eosinophils # 0.1 K/mm3 (0.0-0.4); Eosinophils % 0.5 % (0.1-12.0); Hematocrit 36.7 % (42.0-52.0); Hemoglobin 12.2 g/dL (14.1-18.0); Lymphocytes # 1.4 K/mm3 (0.7-4.5); Lymphocytes % 13.9 % (10-50); Mean Corpuscular HGB Conc 33.2 g/dL (31.8-35.4); Mean Corpuscular Hemoglobin 29.6 pg (27.0-31.2); Mean Corpuscular Volume 89.3 fl (80-94); Mean Platelet Volume 8.4 fl (7.4-10.4); Monocytes # 0.4 K/mm3 (0.1-1.0); Monocytes % 4.2 % (1.7-9.3); Neutrophils # 8.4 K/mm3 (1.8-7.8); Neutrophils % 81.1 % (37.0-80.0); Platelet Count 248 K/mm3 (142-424); Red Cell Distribution Width 13.5 % (11.5-17.5); White Blood Count 10.4 K/mm3 (4.8-10.8)
[2020-12-31 05:40] LABS: Anion Gap 8.9 mEq/L (5-15); Blood Urea Nitrogen 13 mg/dl (9-20); Calcium 8.6 mg/dl (8.4-10.2); Carbon Dioxide 27 mmol/L (22.0-30.0); Chloride 106 mmol/L (98-107); Cholesterol 171 mg/dl (140-200); Creatinine Clearance Estimated 168 mL/min (50-200); Estimated Glomerular Filt Rate 145 ml/min (>60); GFR (African American) 176 ML/MIN (>60); HDL Cholesterol 34 mg/dl (40-60); Magnesium 1.4 mg/dl (1.6-2.3); Potassium 4.9 mmoL/L (3.5-5.1); Sodium 137 mmol/L (136-145); Triglycerides 68 mg/dl (30-150); VLDL Cholesterol 14 mg/dL (0-40)
[2020-12-31 05:51] LABS: Direct LDL Cholesterol 113.74 mg/dL (100-129)
[2020-12-31 05:52] LABS: Troponin I 0.02 ng/ml (0.00-0.034)
[2020-12-31 06:01] LABS: Glucose 105 mg/dl (74-100)
--- NOTE | 2020-12-31 06:23 | PC.NURSE ---
Janet GUERRERO NOTIFIED OF CONSULT
--- NOTE | 2020-12-31 07:20 | P.CONPHA_ITS ---
[facility] VTE Monitoring - Patient Demographics Admission date: 12/30/20 Report Date: 12/31/20 Time: 07:20 Allergies/Adverse Reactions: Patient Allergies Penicillins Allergy (Verified 04/08/20 11:42) Height: 1.75 m Weight: 77.111 kg Patient Problems: Current Active Problems Drug overdose (Acute) Atrial flutter (Acute) CAP (community acquired pneumonia) (Acute) Scoliosis (and kyphoscoliosis), idiopathic (Acute) - VTE Risk Labs: VTE Related Lab Results Hgb 12.2 g/dL (14.1-18.0) L 12/31/20 04:55 Hct 36.7 % (42.0-52.0) L 12/31/20 04:55 Plt Count 248 K/mm3 (142-424) 12/31/20 04:55 BUN 13 mg/dl (9-20) 12/31/20 04:55 Creatinine 0.60 mg/dl (0.66-1.25) L D 12/31/20 04:55 Estimated Creat Clear 168 mL/min (50-200) 12/31/20 04:55 Was VTE Risk Assessment Performed: Yes VTE Score: 1 VTE Risk Level: Very Low Risk Clinical Trial Participant: No - Prophylaxis VTE Prophylaxis Ordered?: Yes Types of VTE Prophylaxis: TEDS Knee High
--- NOTE | 2020-12-31 08:00 | CA_ITS ---
APPROVED REPORT EXAM: Comprehensive 2D, Doppler, and color-flow Echocardiogram Circuit Judge: Magda Mera CRT Ht: 5 ft 9 in Wt: 170lbs BSA: 1.93 BP: 114/69 mmHg Indications: Palpitations, Atrial Flutter, Hypertension/HDD, smoker, possible drug overdose, AMS, lethargic limited images due to pectus excavatum, scoliosis 2D Dimensions LVOT 2.02 cm (M/F) 1.5-2.5 M-Mode Dimensions RVDd 3.03 cm (0.9-2.6) LA Diam 2.95 cm (1.9-4.0) LVDd 4.53 cm (3.5-5.7) Ao Diam 3.63 cm (2.0-3.7) LVDs 3.15 cm (3.5-5.7) IVSd 1.47 cm (0.6-1.1) PWd 0.59 cm (0.6-1.1) EF (Teich) 58.00% FS 30.50% EDV (Teich) 93.90 mL ESV (Teich) 39.40 mL LV Diastology E Decel Time 160.00 (160-240 msec) E/A Ratio 1.24 Aortic Valve AO Peak GR. 3.00 mmHg Mitral Valve MV A Velocity 48.00 (40-130 cm/s) E/A Ratio 1.24 MV Decel. Time 160.00 (160-240 ms) Tricuspid Valve TR P. Velocity 225.00 cm/s RAP Estimate 10.00 mmHg RVSP 30.30 mmHg Left Ventricle Left atrium is normal size, left ventricle is normal size, there is no concentric left ventricular hypertrophy, visually estimated ejection fraction 55% with no regional wall motion abnormality, diastolic parameters are inconclusive in the study. Right Ventricle Right atrium and right ventricle are relatively normal size and function. Aortic Valve Aortic valve is grossly normal, there is no aortic stenosis or aortic insufficiency. Mitral Valve Mitral valve is grossly normal, there is trace mitral regurgitation. Tricuspid Valve Tricuspid valve grossly normal, there is trace tricuspid regurgitation, calculated right ventricular systolic pressure is within normal range. Pulmonic Valve Pulmonic valve is poorly visualized. Great Vessels Aortic root is normal size. Inferior vena cava is not well visualized. Pericardium No significant pericardial effusion noted. Conclusion 1. Normal left ventricular size, preserved left ventricular systolic function, visually estimated ejection fraction 55% with no regional wall motion abnormality, diastolic parameters are inconclusive. 2. Trace mitral and tricuspid regurgitation. 3. No significant pericardial effusion noted. Electronically signed by : Keith Willingham MD 12/31/2020 18:21:07
--- NOTE | 2020-12-31 08:05 | HMH.CNCARD ---
History of Present Illness Consult date: 12/31/20 Requesting physician: Yoshi Gusman Consult reason: chest pain Chief complaint: chest pain Additional Medical History:: 1. Tobacco use, 1.5 to 2 packs/day, for 26 years 2. Chronic back pain with chronic narcotic use 3. History of marijuana use 4. Transient atrial flutter related to drug overdose 5. Remote history of TIAs per patient approximately 10 years ago of unknown etiology History of present illness: 45-year-old white male admitted through the emergency department for complaint of chest discomfort after taking Percocet that he obtained from a friend at home. No radiation of symptoms, nausea, vomiting or diaphoresis. He arrived by EMS due to decreased level of arousal at home and being combative upon awaking. In the emergency department patient was noted to have a tachyarrhythmia, felt to be atrial flutter, and was treated with IV diltiazem with subsequent conversion to sinus rhythm. Patient denies any prior cardiac issues, history of diabetes, treatment for hypertension or hyperlipidemia. He denies any alcohol use or other substance abuse. Troponins overnight remained within normal limits. Telemetry this a.m. shows sinus rhythm. Preliminary echocardiogram shows preserved ejection fraction with evidence of tricuspid regurgitation. 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 *Occupational Status:: employed Housing: house Household Members: spouse *Travel in the last 8 weeks: None Family Hx:: No significant family history Meds Home Medications Medication Instructions Recorded Confirmed Type No Known Home Medications 12/30/20 12/30/20 History Allergies Allergy/AdvReac Type Severity Reaction Status Date / Time Penicillins Allergy Verified 04/08/20 11:42 Exam Vital signs and Labs for Last 24 Hours: Temp Pulse Resp BP Pulse Ox 98.1 F 80 18 124/75 95 12/31/20 02:30 12/31/20 04:00 12/31/20 02:30 12/31/20 02:30 12/31/20 03:08 Laboratory Results - last 24 hr 12/30/20 22:45: WBC 10.3, RBC 4.72, Hgb 13.5 L, Hct 41.7 L, MCV 88.3, MCH 28.7, MCHC 32.5, RDW 13.4, Plt Count 309, MPV 7.6, Neut % (Auto) 34.5 L, Lymph % (Auto) 50.3 H, [place] % (Auto) 7.3, Eos % (Auto) 6.3, Baso % (Auto) 1.7, Neut # (Auto) 3.6, Lymph # (Auto) 5.2 H, [place] # (Auto) 0.8, Eos # (Auto) 0.7 H, Baso # (Auto) 0.2, Total Counted 100, Neutrophils % (Manual) 43, Band Neutrophils % 2.0, Lymphocytes % (Manual) 45, Monocytes % (Manual) 7, Eosinophils % (Manual) 3, Platelet Estimate Normal, RBC Morphology Normal 12/30/20 22:45: Sodium 140, Potassium 3.3 L, Chloride 101, Carbon Dioxide 26, Anion Gap 16.3 H, BUN 15, Creatinine 0.90, Estimated Creat Clear 105, Estimated GFR 91, Est GFR ( Amer) 110, Glucose 151 H, Calcium 9.0, Total Bilirubin 0.6, AST 33, ALT 29, Alkaline Phosphatase 81, Troponin I < 0.01, C-Reactive Protein 3.2, Total Protein 7.6, Albumin 4.7, Globulin 2.9, Albumin/Globulin Ratio 1.6, Procalcitonin 0.065 12/30/20 22:45: ESR 13 12/30/20 22:50: Urine Color Dk yellow, Urine Appearance Clear, Urine pH 6.0, Ur Specific [place] >= 1.030, Urine Protein Negative, Urine Glucose (UA) Negative, Urine Ketones Negative, Urine Blood Negative, Urine Nitrate Negative, Urine Bilirubin 1+ A, Urine Urobilinogen 1.0, Ur Leukocyte Esterase Negative, Urine RBC Occasional, Urine WBC Occasional, Ur Squamous Epith Cells Occasional, Urine Bacteria None 12/30/20 22:58: Urine Opiates Screen Positive H, Urine Methadone Screen Negati
--- NOTE | 2020-12-31 08:46 | HMH.HPDC ---
General - General Admission date:: 12/31/20 Discharge date: 12/31/20 *Admission Date: 12/30/20 *Chief complaint: Change in mental status *History of present illness: 45-year-old male was lethargic at home, called 911, when EMS arrived pt was lethargic, but combative on arousal. Pt's states the only thing she knows he took was a percocet. Pt had 5mm PERRL. non verbal and Tachycardic on arrival. Rhythm was A-Flutter and treated with IV diltiazem with conversion to sinus rhythm. He denies any prior cardiac issues, history of diabetes, treatment for hypertension or hyperlipidemia. He denies any alcohol use or other substance abuse. There was no seizure activity noted. 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 *Occupational Status:: employed Housing: house Household Members: spouse *Travel in the last 8 weeks: None Family Hx:: No significant family history Review of Systems - Review of Systems Review of systems:: pertinent systems reviewed and negative unless documented below - Constitutional Denies anorexia, Denies fatigue - Eyes Denies blurry vision, Denies double vision - ENT Denies bleeding gums, Denies dizziness - *Cardiovascular Denies chest pain, Denies shortness of breath - *Respiratory Denies chest congestion, Denies cough - *Gastrointestinal Denies abdominal pain, Denies loose stools - *Musculoskeletal Denies joint pain, Denies muscle weakness - Integumentary/Breasts Denies acne, Denies change in skin color - *Neurologic Reports behavioral changes, Reports confusion, Denies localized weakness, Denies seizure-like activity - Psychiatric Denies abnormal sleep pattern, Denies hearing things others do not hear - Endocrine Denies cold intolerance, Denies heat intolerance - Hematologic/Lymphatic Denies easy bleeding, Denies easy bruising - Allergic/Immunologic Denies GI upset with certain foods, Denies tongue swelling Exam Vital signs and Labs for Last 24 Hours: Temp Pulse Resp BP Pulse Ox 98.0 F 79 18 132/71 100 12/31/20 08:00 12/31/20 08:00 12/31/20 08:00 12/31/20 08:00 12/31/20 08:00 Laboratory Results - last 24 hr 12/30/20 22:45: WBC 10.3, RBC 4.72, Hgb 13.5 L, Hct 41.7 L, MCV 88.3, MCH 28.7, MCHC 32.5, RDW 13.4, Plt Count 309, MPV 7.6, Neut % (Auto) 34.5 L, Lymph % (Auto) 50.3 H, [place] % (Auto) 7.3, Eos % (Auto) 6.3, Baso % (Auto) 1.7, Neut # (Auto) 3.6, Lymph # (Auto) 5.2 H, [place] # (Auto) 0.8, Eos # (Auto) 0.7 H, Baso # (Auto) 0.2, Total Counted 100, Neutrophils % (Manual) 43, Band Neutrophils % 2.0, Lymphocytes % (Manual) 45, Monocytes % (Manual) 7, Eosinophils % (Manual) 3, Platelet Estimate Normal, RBC Morphology Normal 12/30/20 22:45: Sodium 140, Potassium 3.3 L, Chloride 101, Carbon Dioxide 26, Anion Gap 16.3 H, BUN 15, Creatinine 0.90, Estimated Creat Clear 105, Estimated GFR 91, Est GFR ( Amer) 110, Glucose 151 H, Calcium 9.0, Total Bilirubin 0.6, AST 33, ALT 29, Alkaline Phosphatase 81, Troponin I < 0.01, C-Reactive Protein 3.2, Total Protein 7.6, Albumin 4.7, Globulin 2.9, Albumin/Globulin Ratio 1.6, Procalcitonin 0.065 12/30/20 22:45: ESR 13 12/30/20 22:50: Urine Color Dk yellow, Urine Appearance Clear, Urine pH 6.0, Ur Specific [place] >= 1.030, Urine Protein Negative, Urine Glucose (UA) Negative, Urine Ketones Negative, Urine Blood Negative, Urine Nitrate Negative, Urine Bilirubin 1+ A, Urine Urobilinogen 1
== END 2020-12-31 12:00 | disposition home or self-care (01) ==
LOC: ER 12-31 01:41 → 2ND 12-31 02:45
PROVIDERS: Admitting Provider Emergency Medicine; Emergency Provider Emergency Medicine; PCP Emergency Medicine; Visit Provider Emergency Medicine
DX: I48.4 Atypical atrial flutter; Z20.822 Contact with and (suspected) exposure to COVID-19; R07.9 Chest pain, unspecified; T40.2X1A Poisoning by other opioids, accidental (unintentional), initial encounter; F17.210 Nicotine dependence, cigarettes, uncomplicated; I10 Essential (primary) hypertension; Z88.0 Allergy status to penicillin; J18.9 Pneumonia, unspecified organism
CPT/HCPCS: 36415; 70450; 71045; 80048; 80053; 80061; 80305; 81001; 83735; 84145; 84436; 84443; 84484; 85007; 85025; 85651; 86140; 87040; 93005; 93306; 96365; 96366; 96367; 99285; G0378; J1956; U0003

== ENCOUNTER 2022-05-05 18:18 | Emergency (ER) | payer OTHER, SELFPAY ==
[2022-05-05 19:17] VITALS: BP 119/82; PULSE 98; RESP 19; TEMP 36.6; O2SAT 98; BMI 18.7
--- NOTE | 2022-05-05 19:19 | EXP.UTC ---
Discharge Plan Disposition Patient Disposition: Home, Self-Care Prescriptions Prescriptions: No Action levofloxacin 750 MG tablet 750 mg PO DAILY Qty: 5 0RF Referrals Follow up/Referrals: Yoshi Gusman MD [Primary Care Provider] - See instructions Clinical Impressions Clinical Impression: Abdominal pain Instructions Patient Instructions: DI for Acute Abdominal Pain Discharge ED Provider: Yoshi Gusman [facility] General Chief complaint: Abdominal Pain Stated complaint: right side pain Time Seen by Provider: 05/05/22 19:19 Related Data Previous Rx's Medication Instructions Recorded levofloxacin 750 mg tablet 750 mg PO DAILY #5 tabs 12/31/20 Allergies Allergy/AdvReac Type Severity Reaction Status Date / Time Penicillins Allergy Verified 05/05/22 19:23 [facility] Disclaimer: The information contained in this section may have been updated after the patient was seen, as this information can be updated by other users. Social History Smoking Status: Current every day smoker tobacco type: cigarettes packs per day: 1 second hand exposure: Yes alcohol intake: never substance use type: unknown current occupational status: employed Travel in the last 8 weeks: None household members: spouse housing: house ROS Obtained: Yes All systems reviewed & no additional complaints except as documented Constitutional Constitutional: Denies chills, Denies fever(s) and Reports poor appetite ENT Ears, Nose, Mouth, and Throat: Denies dizziness and Denies sore throat Cardiovascular Cardiovascular: Denies dyspnea Respiratory Respiratory: Denies chest congestion, Denies cough and Denies dyspnea Gastrointestinal Gastrointestingal: Reports as per HPI Genitourinary Male Genitourinary: Denies hematuria, Denies urinary frequency, Denies urinary hesitancy, Denies urinary incontinence and Denies urinary urgency Musculoskeletal Musculoskeletal: Denies arthralgias Integumentary/Breasts Skin/Breast: Denies rash Neurologic Neurologic: Denies dizziness Physical Exam General General appearance: alert and in no apparent distress Head Head exam: atraumatic and normocephalic Eye Eye exam: Present normal appearance, PERRL and EOMI ENT ENT exam: Present normal exam, normal oropharynx, mucous membranes moist, TM's normal bilaterally and normal external ear exam Neck Neck exam: Present normal inspection, full ROM and trachea midline; Absent tenderness, meningismus or lymphadenopathy Chest Chest inspection: Present normal inspection and symmetric chest wall rise; Absent tenderness, rash or abscess Respiratory Respiratory exam: Present normal lung sounds bilaterally; Absent respiratory distress, wheezes or stridor Cardiovascular Cardiovascular exam: Present regular rate and normal rhythm; Absent irregular rhythm, systolic murmur, diastolic murmur or JVD Abdominal Exam Abdominal exam: Present soft and normal bowel sounds; Absent distention, tenderness, guarding, rebound, rigidity, psoas sign, obturator sign, heel tap sign, Puentes's sign, Rovsing's sign or tenderness at McBurney's Point Extremities Exam Extremities exam: Present normal inspection and full ROM; Absent tenderness Back Exam Back exam: Present normal inspection and full ROM; Absent tenderness, CVA tenderness (R) or CVA tenderness (L) Neurological Exam Neurological exam: Present alert, oriented X3 and CN II-XII intact Psychiatric Psychiatric exam: Present normal affect and normal mood Skin Skin exam: Present warm, dry, intact and normal color Lymphatic Lymphatic Findings: no adenopathy Medical Decision Making Medical Records Medical records reviewed: No I reviewed the patient's medical records. Gus Inquiry Pt receiving controlled substance: No Lab Data Result diagrams: 05/05/22 19:41 05/05/22 19:41 Medical Decision Narrative: He was transferred to the er due to h
[2022-05-05 19:27] LABS: Apearance,Urine Clear (Clear); Bilirubin,Urine Negative (Negative); Blood, Urine Negative (Negative); Color,Urine Yellow (Yellow); Glucose,Urine (UA) Negative (Negative); Ketones,Urine Negative (Negative); Protein,Urine Negative (Negative); UTC Leukocyte Esterase,Urine Negative (Negative); UTC Nitrate,Urine Negative (Negative); Urobilinogen,Urine 1 EU/dl (0.2)
[2022-05-05 19:55] LABS: Basophils # 0.1 K/mm3 (0-0.2); Basophils % 0.6 % (0.1-2.0); Eosinophils # 0.4 K/mm3 (0.0-0.4); Eosinophils % 3.2 % (0.1-12.0); Hematocrit 37.3 % (42.0-52.0); Hemoglobin 12.5 g/dL (14.1-18.0); Lymphocytes # 3.1 K/mm3 (0.7-4.5); Mean Corpuscular HGB Conc 33.5 g/dL (31.8-35.4); Mean Corpuscular Hemoglobin 29.2 pg (27.0-31.2); Monocytes # 0.6 K/mm3 (0.1-1.0); Monocytes % 4.6 % (1.7-9.3); Neutrophils # 7.8 K/mm3 (1.8-7.8); Neutrophils % 65.5 % (37.0-80.0); Platelet Count 299 K/mm3 (142-424); Red Blood Count 4.28 M/mm3 (4.60-6.20); Red Cell Distribution Width 14.1 % (11.5-17.5)
[2022-05-05 20:00] LABS: Lipase 12 U/L (23-300)
[2022-05-05 20:01] LABS: Alanine Aminotransferase 27 U/L (12-78); Albumin Level 4.7 g/dl (3.5-5.0); Alkaline Phosphatase 60 U/L (38-126); Amylase 49 U/L (30-110); Anion Gap 13.4 mEq/L (5-15); Aspartate Amino Transferase 28 U/L (17-59); Bilirubin,Total 0.3 mg/dl (0.2-1.3); Blood Urea Nitrogen 6 mg/dl (9-20); Calcium 9.4 mg/dl (8.4-10.2); Carbon Dioxide 27 mmol/L (22.0-30.0); Chloride 105 mmol/L (98-107); Creatinine Clearance Estimated 116 mL/min (50-200); Estimated Glomerular Filt Rate 121 ml/min (>60); GFR (African American) 146 ML/MIN (>60); Globulin 2.4 g/dL (1.3-3.2); Glucose 93 mg/dl (74-100); Potassium 3.4 mmoL/L (3.5-5.1); Sodium 142 mmol/L (136-145); Total Protein,Serum 7.1 g/dl (6.3-8.2)
[2022-05-05 21:15] VITALS: BP 129/74; PULSE 89; RESP 17; TEMP 36.7; O2SAT 99; BMI 20.3
--- NOTE | 2022-05-05 21:15 | CT_ITS ---
PROCEDURE INFORMATION: Exam: CT Abdomen And Pelvis With Contrast Exam date and time: 05/05/2022 9:37 PM Age: 46 years old Clinical indication: Abdominal pain; Additional info: R side abd pain TECHNIQUE: Imaging protocol: Computed tomography of the abdomen and pelvis with contrast. Radiation optimization: All CT scans at this facility use at least one of these dose optimization techniques: automated exposure control; mA and/or kV adjustment per patient size (includes targeted exams where dose is matched to clinical indication); or iterative reconstruction. Contrast material: ISOVUE; Contrast volume: 75 ml; Contrast route: IV; COMPARISON: CT ABDOMEN PELVIS W CON 11/02/2019 2:30 PM FINDINGS: Liver: Intrahepatic and extrahepatic bile duct dilation with CBD measuring 1.1 cm. Gallbladder and bile ducts: Moderately distended gallbladder without radiodense stone Pancreas: Normal enhancement. No ductal dilation. Spleen: There are multiple splenic calcifications likely on the basis of prior granulomatous exposure. Adrenal glands: No mass. Kidneys and ureters: No hydronephrosis. Stomach and bowel: No obstruction. No mucosal thickening. Appendix: No evidence of appendicitis. Intraperitoneal space: No significant fluid collection. No free air. Vasculature: No abdominal aortic aneurysm. Lymph nodes: No enlarged lymph nodes. Urinary bladder: Asymmetric appearing bladder wall thickening measuring 7 mm posterior and inferior. Urinary bladder is under distended. Reproductive: No acute abnormality. Bones/joints: Pectus excavatum. Soft tissues: No soft tissue swelling. IMPRESSION: 1. Intrahepatic and extrahepatic bile duct dilation concerning for obstruction. Correlation with LFTs recommended. 2. Asymmetric appearing bladder wall thickening for which correlation with UA is recommended. Mucosal mass cannot be radiographically excluded
[2022-05-05 21:25] LABS: Amylase 51 U/L (30-110)
[2022-05-05 22:07] LABS: Lactic Acid 0.6 mmol/L (0.7-2.1)
--- NOTE | 2022-05-05 23:15 | HMH.EDABDPAI ---
Discharge Plan Disposition Patient Disposition: Home, Self-Care Chief Complaint: Abdominal Pain Prescriptions Prescriptions: No Action levofloxacin 750 MG tablet 750 mg PO DAILY Qty: 5 0RF Referrals Follow up/Referrals: Yoshi Gusman MD [Primary Care Provider] - See instructions Clinical Impressions Clinical Impression: Abdominal pain Instructions Patient Instructions: DI for Acute Abdominal Pain Discharge ED Provider: Yoshi Gusman Abdominal Pain HPI General Chief Complaint: Abdominal Pain Stated Complaint: right side pain Time Seen by Provider: 05/05/22 19:19 Mode of Arrival: Family Vehicle Source of Information: Patient Limitations: No Limitations Description of Symptoms (Recalled from ER Triage Doc. by RN): Pt c/o RLQ ABD pain. He also report soft-loose stool for 1 week and 1 episode of vomiting yesterday. He denies any fever, chills, or nausea. He does report hot flashes occasionally. Mild tenderness to R side upon palpation. Denies any hx stone, voiding issues or gross hematuria. 3 History of Present Illness HPI narrative: pt with rt sided abd pain over the last week - worse after meals - no fever/rash or trauma complaint: abdominal pain Onset (ago): day(s) Consistency: intermittent Location: RUQ Severity: moderate Associated symptoms: denies other symptoms Related Data Previous Rx's Medication Instructions Recorded levofloxacin 750 mg tablet 750 mg PO DAILY #5 tabs 12/31/20 Allergies Allergy/AdvReac Type Severity Reaction Status Date / Time Penicillins Allergy Verified 05/05/22 19:23 [facility] Disclaimer: The information contained in this section may have been updated after the patient was seen, as this information can be updated by other users. Social History Smoking Status: Current every day smoker tobacco type: cigarettes packs per day: 1 second hand exposure: Yes alcohol intake: never substance use type: unknown current occupational status: employed Travel in the last 8 weeks: None household members: spouse housing: house ROS Obtained: Yes All systems reviewed & no additional complaints except as documented Physical Exam General General appearance: alert Head Head exam: normocephalic Eye Eye exam: Present PERRL and EOMI; Absent scleral icterus ENT ENT exam: Present mucous membranes moist Neck Neck exam: Present trachea midline Respiratory Respiratory exam: Present normal lung sounds bilaterally; Absent respiratory distress Cardiovascular Cardiovascular exam: Present regular rate Abdominal Exam Abdominal exam: Present soft, tenderness and Puentes's sign; Absent guarding, rebound or rigidity Abdominal tenderness: Present RUQ and moderate Extremities Exam Extremities exam: Present full ROM Back Exam Back exam: Absent CVA tenderness (R) Neurological Exam Neurological exam: Present alert, oriented X3 and CN II-XII intact; Absent motor sensory deficit Psychiatric Psychiatric exam: Present normal affect Skin Skin exam: Absent rash Medical Decision Making Medical Records Medical records reviewed: Yes I reviewed the patient's medical records. Gus Inquiry Pt receiving controlled substance: No Vital Signs: 05/05/22 19:17 05/05/22 21:15 Temperature 97.8 F 98.0 F Temperature Source Oral Oral Pulse Rate [Left Radial] 98 H 89 Respiratory Rate 19 17 Blood Pressure [Right Arm] 119/82 129/74 Blood Pressure Mean [Right Arm] 94 92 02 Sat by Pulse Oximetry 98 99 Oxygen Delivery Method Room Air Lab Data Lab results reviewed: Yes I reviewed the patient's lab results. Lab Results 05/05/22 14:41: Amylase 51 05/05/22 19:17: Urine Color Yellow, Urine Appearance Clear, Urine pH 6.0, Ur Specific [place] 1.020, Urine Protein Negative, Urine Glucose (UA) Negative, Urine Ketones Negative, Urine Blood Negative, Urine Nitrate Negative, Urine Bilirubin Negative, Urine Urobilinogen 1, Ur L
[2022-05-05 23:23] VITALS: BP 128/75; PULSE 75; RESP 16; TEMP 36.8; O2SAT 98
== END 2022-05-05 23:39 | disposition home or self-care (01) ==
LOC: UTC 18:29 → ER 20:51
PROVIDERS: Nurse Practitioner Family; Emergency Provider Emergency Medicine; PCP Emergency Medicine
DX: R10.11 Right upper quadrant pain (principal); R10.31 Right lower quadrant pain; R19.7 Diarrhea, unspecified; R11.10 Vomiting, unspecified; F17.210 Nicotine dependence, cigarettes, uncomplicated; Z79.899 Other long term (current) drug therapy; Z88.0 Allergy status to penicillin
CPT/HCPCS: 74177; 80053; 81003; 82150; 83605; 83690; 85025; 96360; 99284; Q9967

== ENCOUNTER 2022-09-27 19:06 | Emergency (ER) | payer OTHER, SELFPAY ==
[2022-09-27 19:19] VITALS: BP 134/96; PULSE 74; RESP 18; O2SAT 99
[2022-09-27 19:20] VITALS: BP 134/96; PULSE 86; RESP 16; TEMP 36.8; O2SAT 99; BMI 20.3
--- NOTE | 2022-09-27 19:24 | CT_ITS ---
PROCEDURE INFORMATION: Exam: CT Abdomen And Pelvis Without Contrast Exam date and time: 09/27/2022 7:34 PM Age: 47 years old Clinical indication: Abdominal pain; Localized; Right lower quadrant (rlq); Additional info: Rlq pain TECHNIQUE: Imaging protocol: Computed tomography of the abdomen and pelvis without contrast. Radiation optimization: All CT scans at this facility use at least one of these dose optimization techniques: automated exposure control; mA and/or kV adjustment per patient size (includes targeted exams where dose is matched to clinical indication); or iterative reconstruction. REPORTING DATA: Count of CT and Cardiac NM exams in prior 12 months: This patient has received [address] and 0 known cardiac nuclear medicine studies in the 12 months prior to the current study. COMPARISON: CT ABDOMEN PELVIS W CON 05/05/2022 9:37 PM FINDINGS: Lungs: Minor atelectasis or fibrosis in the lung bases. Heart: Heart size normal. Mediastinal space: The visualized distal esophagus is largely contracted without gross abnormality. Liver: Normal contour. No mass lesions. Moderate chronic dilatation of the intrahepatic bile ducts unchanged. Gallbladder and bile ducts: Gallbladder is unremarkable. Chronic moderate dilatation of the common hepatic duct and common bile duct unchanged measuring up to 10 mm diameter. Pancreas: Severe pancreatic atrophy without acute abnormality. No pancreatic ductal dilatation. Spleen: Granulomatous calcifications in the spleen without acute splenic abnormality. Adrenal glands: Normal. No adrenal mass. Kidneys and ureters: No acute abnormalities. No hydronephrosis or hydroureter. No urinary tract stones are identified. Stomach and bowel: The stomach is unremarkable. The small bowel is nondilated with no gross abnormality. There is a large amount of stool distributed throughout the colon suggesting constipation. Appendix: The appendix is normal in caliber and demonstrates no evidence of appendicitis. 3 mm nonobstructive calcified appendicolith at the appendiceal base again noted. Intraperitoneal space: No free fluid or air. Vasculature: No acute process. No abdominal aortic aneurysm. Lymph nodes: Borderline enlarged bilateral inguinal and external iliac nodes, nonspecific. Urinary bladder: The urinary bladder is largely contracted with wall thickening which may relate to its contracted status. Mild adjacent stranding. Correlate with UA for evidence of cystitis. Reproductive: Mildly enlarged prostate. Vasectomy clips noted bilaterally. Bones/joints: No acute osseous abnormalities. Moderate rightward convexity thoracolumbar scoliotic curvature and pectus excavatum again noted. Soft tissues: Very small fatty right inguinal hernia with no bowel herniation or changes of strangulation. IMPRESSION: 1. No appendicitis. No urolithiasis or hydronephrosis. 2. There is a large amount of stool distributed throughout the colon suggesting constipation. 3. Chronic moderate dilatation of the intrahepatic and extrahepatic bile ducts, unchanged from 05/05/2022. No obstructive mass lesions or stones are identified by CT. Clinical/laboratory correlation recommended to exclude evidence of biliary obstruction. Consider sonographic assessment as clinically indicated. 4. The urinary bladder is largely contracted with wall thickening which may relate to its contracted status. Mild adjacent stranding. Correlate with UA for evidence of cystitis. 5. Additional nonemergent findings detailed above.
[2022-09-27 19:34] LABS: Microscopic, Urine URINE MICROSCOPIC (MICROSCOPIC)
[2022-09-27 19:38] LABS: Basophils # 0.1 K/mm3 (0-0.2); Basophils % 0.6 % (0.1-2.0); Eosinophils # 0.2 K/mm3 (0.0-0.4); Eosinophils % 1.9 % (0.1-12.0); Hematocrit 45.5 % (42.0-52.0); Hemoglobin 14.9 g/dL (14.1-18.0); Lymphocytes # 2.8 K/mm3 (0.7-4.5); Lymphocytes % 24.4 % (10-50); Mean Corpuscular HGB Conc 32.7 g/dL (31.8-35.4); Mean Corpuscular Hemoglobin 28.5 pg (27.0-31.2); Mean Corpuscular Volume 87.1 fl (80-94); Mean Platelet Volume 7.9 fl (7.4-10.4); Monocytes # 0.7 K/mm3 (0.1-1.0); Monocytes % 5.7 % (1.7-9.3); Neutrophils # 7.8 K/mm3 (1.8-7.8); Neutrophils % 67.5 % (37.0-80.0); Platelet Count 298 K/mm3 (142-424); Red Blood Count 5.23 M/mm3 (4.60-6.20); Red Cell Distribution Width 13.8 % (11.5-17.5); White Blood Count 11.6 K/mm3 (4.8-10.8)
[2022-09-27 19:40] LABS: Appearance,Urine CLEAR (Clear); Blood, Urine Negative (Negative); Color,Urine DK YELLOW (Yellow); Glucose,Urine (UA) Negative (Negative); Ketones,Urine Negative (Negative); Leukocyte Esterase,Urine Negative (Negative); Nitrate,Urine Negative (Negative); PH,Urine 5.5 (5.0-8.5); Protein,Urine 1+ (Negative); Specific Gravity, Urine >= 1.030 (1.005-1.030)
[2022-09-27 19:41] LABS: Bilirubin,Urine 1+ (Negative)
[2022-09-27 19:41] LABS: Chloride 100 mmol/L (98-107); Potassium 4.3 mmoL/L (3.5-5.1); Sodium 139 mmol/L (136-145)
[2022-09-27 19:44] LABS: Alanine Aminotransferase 28 U/L (12-78); Albumin Level 5.5 g/dl (3.5-5.0); Albumin/Globulin Ratio 1.6 (1.1-1.8); Alkaline Phosphatase 71 U/L (38-126); Amylase 54 U/L (30-110); Anion Gap 16.3 mEq/L (5-15); Aspartate Amino Transferase 39 U/L (17-59); Bilirubin,Total 0.8 mg/dl (0.2-1.3); Blood Urea Nitrogen 12 mg/dl (9-20); Carbon Dioxide 27 mmol/L (22.0-30.0); Creatinine Clearance Estimated 97 mL/min (50-200); Estimated Glomerular Filt Rate 90 ml/min (>60); GFR (African American) 109 ML/MIN (>60); Globulin 3.5 g/dL (1.3-3.2); Glucose 102 mg/dl (74-100); Lipase 11 U/L (23-300)
[2022-09-27 19:52] LABS: Bacteria,Urine 1+ /lpf; Mucus,Urine 2+ /lpf
[2022-09-27 19:59] LABS: C-Reactive Protein 4.8 mg/L (0-4)
[2022-09-27 20:01] VITALS: BP 142/98; PULSE 67; RESP 20; O2SAT 99
[2022-09-27 20:12] LABS: Erythrocyte Sedimentation Rate 5 mm/hr (0-15)
[2022-09-27 20:31] VITALS: BP 148/93; PULSE 76; RESP 20; O2SAT 99
--- NOTE | 2022-09-27 20:45 | HMH.EDABDPAI ---
Discharge Plan Disposition Patient Disposition: Home, Self-Care Prescriptions Prescriptions: New levofloxacin 500 mg tablet 500 mg PO DAILY Qty: 7 0RF No Action levofloxacin 750 MG tablet 750 mg PO DAILY Qty: 5 0RF Referrals Follow up/Referrals: Yoshi Gusman MD [Primary Care Provider] - See instructions Clinical Impressions Clinical Impression: Acute epididymitis Instructions Patient Instructions: DI for Epididymitis Discharge ED Provider: Uzma (ED)Yoshi Abdominal Pain HPI General Chief Complaint: Abdominal Pain Stated Complaint: Pain R Side Time Seen by Provider: 09/27/22 20:05 Mode of Arrival: Ambulatory Source of Information: Patient, Spouse and Medical Record Limitations: No Limitations Description of Symptoms (Recalled from ER Triage Doc. by RN): pt c/o pain with urination, RLQ and R flank pain that is sharp in nature 9/10 pain started earlier today. History of Present Illness HPI narrative: pt with rt testicular pain which has been ongoing today with rad to rt groin no penile d/c or hematuria complaint: other (groin pain) Onset (ago): day(s) Consistency: intermittent Severity: moderate Associated symptoms: denies other symptoms Related Data Previous Rx's Medication Instructions Recorded levofloxacin 750 mg tablet 750 mg PO DAILY #5 tabs 12/31/20 levofloxacin 500 mg tablet 500 mg PO DAILY #7 tabs 09/27/22 Allergies Allergy/AdvReac Type Severity Reaction Status Date / Time Penicillins Allergy Verified 09/27/22 19:23 [facility] Disclaimer: The information contained in this section may have been updated after the patient was seen, as this information can be updated by other users. Social History Smoking Status: Current every day smoker tobacco type: cigarettes packs per day: 1 second hand exposure: Yes alcohol intake: never substance use type: unknown current occupational status: employed Travel in the last 8 weeks: None household members: spouse housing: house ROS Obtained: Yes All systems reviewed & no additional complaints except as documented Physical Exam General General appearance: alert Head Head exam: normocephalic Eye Eye exam: Present PERRL and EOMI ENT ENT exam: Present mucous membranes moist Neck Neck exam: Present trachea midline Respiratory Respiratory exam: Absent respiratory distress Cardiovascular Cardiovascular exam: Present regular rate Abdominal Exam Abdominal exam: Present soft exam: Present circumcised and other (no scrotal swelling and no d/c and has tender rt epididymis - testicles ok and no hernia - no specific lymphnodes ) Extremities Exam Extremities exam: Present full ROM Neurological Exam Neurological exam: Present alert, oriented X3 and CN II-XII intact; Absent motor sensory deficit Skin Skin exam: Absent rash Lymphatic Lymphatic Findings: no adenopathy Medical Decision Making Medical Records Medical records reviewed: Yes I reviewed the patient's medical records. Gus Inquiry Pt receiving controlled substance: No Vital Signs: 09/27/22 19:20 Temperature 98.3 F Temperature Source Oral Pulse Rate [Right] 86 Respiratory Rate 16 Blood Pressure [Right Arm] 134/96 H Blood Pressure Mean [Right Arm] 108 Blood Pressure Source [Right Arm] Automatic Cuff Blood Pressure Position [Right Arm] Sitting 02 Sat by Pulse Oximetry 99 Oxygen Delivery Method Room Air Lab Data Lab results reviewed: Yes I reviewed the patient's lab results. Lab Results 09/27/22 19:16: Urine Color Dk yellow, Urine Appearance Clear, Urine pH 5.5, Ur Specific [place] >= 1.030, Urine Protein 1+, Urine Glucose (UA) Negative, Urine Ketones Negative, Urine Blood Negative, Urine Nitrate Negative, Urine Bilirubin 1+ A, Urine Urobilinogen 1.0, Ur Leukocyte Esterase Negative, Urine RBC None, Urine WBC 3-5, Ur Squamous Epith Cells 5-10, Urine Bacteria 1+, Urine Mucus 2+ 05
[2022-09-27 21:11] VITALS: BP 116/77; PULSE 82; RESP 18; TEMP 36.8
== END 2022-09-27 21:19 | disposition home or self-care (01) ==
PROVIDERS: Emergency Provider Emergency Medicine; PCP Emergency Medicine
DX: N45.1 Epididymitis (principal); R10.31 Right lower quadrant pain; R30.9 Painful micturition, unspecified; F17.210 Nicotine dependence, cigarettes, uncomplicated
CPT/HCPCS: 74176; 80053; 81001; 82150; 83690; 85025; 85651; 86140; 96361; 96374; 99284; 99285

== ENCOUNTER → 2022-09-28 16:08 | Outpatient (CLI) | payer OTHER, SELFPAY ==
--- NOTE | 2022-09-28 16:11 | US_ITS ---
PROCEDURE INFORMATION: Exam: US Scrotum and US Duplex Artery and Vein, Scrotum, Complete Exam date and time: 09/28/2022 4:24 PM Age: 47 years old Clinical indication: Scrotum pain; Additional info: N44.00 - torsion of testis, unspecified TECHNIQUE: Imaging protocol: Real-time ultrasound of the scrotum. Real-time duplex ultrasound scan of the arterial and venous flow of the scrotum with B-mode, color Doppler flow and spectral waveform analysis. Complete exam. Duplex exam was performed to evaluate for torsion and other vascular conditions. COMPARISON: CT ABDOMEN PELVIS WO CON 09/27/2022 7:34 PM FINDINGS: Right testicle: Normal. Right testicle measures 3.4 x 1.9 x 2.6 cm. No mass. No torsion. Normal Duplex waveforms and color doppler. Left testicle: Normal. Left testicle measures 3.6 x 2.4 x 3.0 cm. No mass. No torsion. Normal Duplex waveforms and color doppler. Epididymides: Normal. Scrotum: Incidental bilateral varicoceles. IMPRESSION: Bilateral varicoceles. Otherwise unremarkable ultrasound of the testicles.
== END ==
PROVIDERS: PCP Emergency Medicine; Visit Provider Emergency Medicine
DX: N44.00 Torsion of testis, unspecified (principal)
CPT/HCPCS: 76870

== ENCOUNTER → 2022-11-02 23:37 | Outpatient (CLI) | payer OTHER, SELFPAY ==
[2022-11-02 19:02] LABS: Basophils # 0.1 K/mm3 (0-0.2); Basophils % 0.8 % (0.1-2.0); Eosinophils # 0.4 K/mm3 (0.0-0.4); Eosinophils % 4.5 % (0.1-12.0); Hematocrit 42.1 % (42.0-52.0); Hemoglobin 13.3 g/dL (14.1-18.0); Lymphocytes % 37.2 % (10-50); Mean Corpuscular HGB Conc 31.6 g/dL (31.8-35.4); Mean Corpuscular Hemoglobin 27.8 pg (27.0-31.2); Mean Platelet Volume 9.3 fl (7.4-10.4); Monocytes # 0.5 K/mm3 (0.1-1.0); Monocytes % 6.5 % (1.7-9.3); Neutrophils # 4.2 K/mm3 (1.8-7.8); Neutrophils % 50.9 % (37.0-80.0); Platelet Count 272 K/mm3 (142-424); Red Blood Count 4.78 M/mm3 (4.60-6.20); White Blood Count 8.2 K/mm3 (4.8-10.8)
[2022-11-02 19:14] LABS: Alanine Aminotransferase 23 U/L (12-78); Albumin Level 4.5 g/dl (3.5-5.0); Albumin/Globulin Ratio 1.8 (1.1-1.8); Alkaline Phosphatase 62 U/L (38-126); Aspartate Amino Transferase 25 U/L (17-59); Bilirubin,Total 0.3 mg/dl (0.2-1.3); Blood Urea Nitrogen 11 mg/dl (9-20); Calcium 9.2 mg/dl (8.4-10.2); Carbon Dioxide 26 mmol/L (22.0-30.0); Chloride 100 mmol/L (98-107); Chol/HDL Ratio 4.3 (1-3.5); Cholesterol 177 mg/dl (140-200); Estimated Glomerular Filt Rate 120 ml/min (>60); GFR (African American) 146 ML/MIN (>60); Globulin 2.5 g/dL (1.3-3.2); Glucose 115 mg/dl (74-100); HDL Cholesterol 41 mg/dl (40-60); Sodium 138 mmol/L (136-145); Triglycerides 116 mg/dl (30-150); VLDL Cholesterol 23 mg/dL (0-40)
[2022-11-02 19:26] LABS: Direct LDL Cholesterol 115.07 mg/dL (100-129)
[2022-11-02 19:31] LABS: Free T4 (Free Thyroxine) 1.08 ng/dl (0.78-2.19)
[2022-11-02 19:49] LABS: Thyroid Stimulating Hormone 1.73 uIU/mL (0.465-4.68)
[2022-11-02 20:52] LABS: 25-OH Vitamin D, Total 35.1 ng/mL (30-100)
[2022-11-04 10:45] LABS: Testosterone,Total 360 ng/dL (264-916)
[2022-11-06 16:58] LABS: Prostate Specific Ag Screen 0.4 ng/ml (0.0-4.0)
== END ==
PROVIDERS: PCP Emergency Medicine; Visit Provider Emergency Medicine
DX: R10.9 Unspecified abdominal pain (principal); S30.1XXA Contusion of abdominal wall, initial encounter; E55.9 Vitamin D deficiency, unspecified; N52.9 Male erectile dysfunction, unspecified; Z12.5 Encounter for screening for malignant neoplasm of prostate
CPT/HCPCS: 80053; 80061; 82306; 84403; 84439; 84443; 85025; G0103

== ENCOUNTER 2023-01-05 13:50 | Inpatient (IN) | payer OTHER, SELFPAY ==
[2023-01-05] VITALS (13 sets, daily range): BP systolic 110–141; BP diastolic 69–96; PULSE 45–58; RESP 14–25; TEMP 36.6–37.1; O2SAT 96–100; BMI 20.3; BMI 17.9
--- NOTE | 2023-01-05 | ECG_ITS ---
APPROVED REPORT Exam: Resting ECG HR:50 bpm ECG Measurements Heart Rate 50 AXES AZ 145 P 41 QRSd 88 QRS 15 QT 413 T 52 QTc 385 Conclusion SINUS BRADYCARDIA POSSIBLE RIGHT VENTRICULAR CONDUCTION DELAY [RSR (QR) IN V1/V2] BORDERLINE ECG UNCONFIRMED REPORT Electronically signed by : Edgar Diaz MD 01/07/2023 18:46:12
--- NOTE | 2023-01-05 14:00 | PC.NURSE ---
1400 PT CLOTHES AND BELONGINGS REMOVED PT PLACED IN 1:1 PRECAUTIONS
--- NOTE | 2023-01-05 14:35 | PC.NURSE ---
Teodora sent to lab
--- NOTE | 2023-01-05 16:54 | PC.NURSE ---
1354 PT ARRIVES VIA EMS, PT A&O X 4. NO COMPLAINTS AT THIS TIME
--- NOTE | 2023-01-05 17:03 | PC.NURSE ---
1416 EKG COMPLETED 1419 AT BEDSIDE 1422 CONTACTED [place]IR[place]IE AT POISON CONTROL, INDICATES SUPPORTIVE CARE, NO CHARCOAL, IVF'S IF SYMPTOMATIC, MAY NEED ATROPINE OR PRESSORS. MONITOR FOR AT LEAST 6 HOURS. 1455 1000ML OF LR AND 4MG IV ZOFRAN 1515 REMAINS AT BEDSIDE, UPDATED. PT RESTING WITH EYES CLOSED 1633 POISON CONTROL UPDATED
[2023-01-05 17:55] LABS: Coronavirus 19, PCR Not Detected (NotDetected); Influenza A, PCR Not Detected (NotDetected); Influenza B, PCR Not Detected (NotDetected)
[2023-01-05 17:57] LABS: Alanine Aminotransferase 32 U/L (12-78); Albumin Level 4.7 g/dl (3.5-5.0); Albumin/Globulin Ratio 1.5 (1.1-1.8); Alkaline Phosphatase 82 U/L (38-126); Anion Gap 15.1 mEq/L (5-15); Aspartate Amino Transferase 36 U/L (17-59); Blood Urea Nitrogen 14 mg/dl (9-20); Calcium 10.1 mg/dl (8.4-10.2); Carbon Dioxide 25 mmol/L (22.0-30.0); Chloride 104 mmol/L (98-107); Creatinine Clearance Estimated 97 mL/min (50-200); Estimated Glomerular Filt Rate 90 ml/min (>60); GFR (African American) 109 ML/MIN (>60); Globulin 3.2 g/dL (1.3-3.2); Glucose 118 mg/dl (74-100); Potassium 4.1 mmoL/L (3.5-5.1); Sodium 140 mmol/L (136-145); Thyroid Stimulating Hormone 0.51 uIU/mL (0.465-4.68); Total Protein,Serum 7.9 g/dl (6.3-8.2)
[2023-01-05 17:58] LABS: Acetaminophen < 10 ug/ml (10-30); Salicylate < 1.0 mg/dL (2.0-20.0)
[2023-01-05 17:59] LABS: Ethyl Alcohol < 10 mg/dl (0-10)
[2023-01-05 18:00] LABS: Hematocrit 44.6 % (42.0-52.0); Hemoglobin 14.6 g/dL (14.1-18.0); Mean Corpuscular HGB Conc 32.8 g/dL (31.8-35.4); Mean Corpuscular Hemoglobin 28.8 pg (27.0-31.2); Mean Corpuscular Volume 87.9 fl (80-94); Red Blood Count 5.08 M/mm3 (4.60-6.20); Red Cell Distribution Width 13.6 % (11.5-17.5); White Blood Count 10.7 K/mm3 (4.8-10.8)
[2023-01-05 18:01] LABS: Basophils % 0.3 % (0.1-2.0); Eosinophils % 0.2 % (0.1-12.0); Lymphocytes # 1.9 K/mm3 (0.7-4.5); Lymphocytes % 17.6 % (10-50); Mean Platelet Volume 7.4 fl (7.4-10.4); Monocytes # 0.6 K/mm3 (0.1-1.0); Monocytes % 5.8 % (1.7-9.3); Neutrophils # 8.1 K/mm3 (1.8-7.8); Neutrophils % 76.2 % (37.0-80.0); Platelet Count 293 K/mm3 (142-424)
--- NOTE | 2023-01-05 18:10 | HMH.EDGENADL ---
Discharge Plan Disposition Patient Disposition: Xfer Short-Term Hosp Chief Complaint: Overdose Prescriptions Prescriptions: No Action sildenafil (pulm.hypertension) 20 mg tablet 40 mg PO DAILY PRN (Reason: sexual activity) Qty: 30 0RF Rx Instructions: administer doses at least 4-6 hours apart prazosin 2 mg capsule 4 mg PO QHS Qty: 60 1RF hydroxyzine pamoate [Vistaril] 25 mg capsule 25 mg PO QHS PRN (Reason: for sleep) Qty: 30 1RF Referrals Follow up/Referrals: Provider,ReferralMD [Referring] - See instructions Clinical Impressions Clinical Impression: Suicide attempt by beta adrianne overdose Discharge ED Provider: Amilcar Encarnacion Adult HPI <Amilcar Encarnacion MD - Last Filed: 01/05/23 18:47> General Chief complaint: Overdose Stated complaint: OD Time Seen by Provider: 01/05/23 14:07 Mode of Arrival: EMS Source of Information: EMS Limitations: No Limitations Description of Symptoms (Recalled from ER Triage Doc. by RN): PT BROUGHT IN VIA EMS, PT INTENTIONALLY TOOK ABOUT 30 B/P PILLS (HCTZ 25MG, METOPROLOL 50MG AND LOSARTIN 50MG) UNKNOWN AMOUT OF EACH. TOOK ABOUT 1200, ADMITS HE WANTED TO HARM SELF History of Present Illness HPI narrative: Patient presents for evaluation following intentional overdose of his mother's medication which included a combination of 30 pills in total, combination of HCTZ 25 mg, metoprolol 50 mg, losartan 50 mg. This event occurred at approximately noon today with self-injurious and suicidal intent. Patient denies any chronic medical issues himself, continues to express suicidal ideation, however denies any other somatic symptoms at this time including chest pain, shortness of breath, weakness, numbness, fevers, chills, headache, palpitations. No other substance ingestion nor recreational drug use. Patient presents with family member at bedside who corroborates patient's story. Of note, however, initial history was obtained while the electronic medical record was down, and thus, I was unable to independently verify patient's medical history in conjunction with the electronic medical record. No previous therapies performed by EMS who brought patient to the emergency department. Patient denies any auditory or visual hallucinations. Related Data Previous Rx's Medication Instructions Recorded hydroxyzine pamoate 25 mg capsule 25 mg PO QHS PRN for sleep #30 caps 10/30/22 (Vistaril) prazosin 2 mg capsule 4 mg PO QHS #60 caps 10/30/22 sildenafil (pulm.hypertension) 20 40 mg PO DAILY PRN sexual activity 11/02/22 mg tablet #30 tabs Allergies Allergy/AdvReac Type Severity Reaction Status Date / Time Penicillins Allergy Verified 11/02/22 13:48 PFS <Amilcar Encarnacion MD - Last Filed: 01/05/23 18:47> [facility] Disclaimer: The information contained in this section may have been updated after the patient was seen, as this information can be updated by other users. Medical History (Updated 01/05/23 @ 19:39 by Marco Curry MD) History of venomous spider bite Nightmares associated with chronic post-traumatic stress disorder Posttraumatic stress disorder Social History Smoking Status: Current every day smoker tobacco type: cigarettes packs per day: 2 second hand exposure: Yes alcohol intake: never counseling given: No substance use type: former substance user and unknown counseling given: No current occupational status: employed Travel in the last 8 weeks: None adopted: No caregiver/support person: Yes (he has a 4 year old daughter) foster care: No household members: spouse housing: house lives independently: Yes marital status: number of children: 10 number of grandchildren: 6 education level: other details: went to the 7th grade; he was young and crazy; no GED Hx Recent Travel: No sexually active: No caffeine: Yes physical activity: none mark/religi
--- NOTE | 2023-01-05 18:12 | PC.NURSE ---
DR LAZO AT BEDSIDE
--- NOTE | 2023-01-05 18:25 | PC.NURSE ---
PT AMBULATED IN HALLWAY WITH HR IN 70'S
[2023-01-05 18:52] LABS: Amphetamine/Metha Screen,Urine Negative ng/ml (<1000)
[2023-01-05 18:53] LABS: Barbiturates Screen,Urine Negative ng/ml (<200); Benzodiazepines Screen,Urine Negative ng/ml (<200)
[2023-01-05 18:54] LABS: Cannabinoid Screen,Urine Negative ng/ml (<50); Cocaine Screen,Urine Negative ng/ml (<300)
[2023-01-05 18:55] LABS: Methadone Screen,Urine Negative ng/ml (<300)
[2023-01-05 18:56] LABS: Opiate Screen,Urine Negative ng/ml (<300); Phencyclidine Screen,Urine Negative ng/ml (<25)
[2023-01-05 19:28] LABS: Appearance,Urine CLEAR (Clear); Bilirubin,Urine Negative (Negative); Blood, Urine Negative (Negative); Color,Urine YELLOW (Yellow); Glucose,Urine (UA) Negative (Negative); Ketones,Urine Negative (Negative); Leukocyte Esterase,Urine Negative (Negative); Microscopic, Urine URINE MICROSCOPIC (MICROSCOPIC); Nitrate,Urine Negative (Negative); Protein,Urine Negative (Negative)
--- NOTE | 2023-01-05 19:50 | PC.NURSE ---
faxed all required paperwork to [facility], pt is still 1:1 and being monitored
[2023-01-05 20:30] LABS: Squamous Epithelial Cell,Urine Occasional #/hpf (0-5)
--- NOTE | 2023-01-05 20:47 | PC.NURSE ---
called [facility] and they confirmed at 2029 they had received the fax
--- NOTE | 2023-01-05 21:30 | PC.NURSE ---
ER MD has decided to admit patient for observation and has spoke to hospitalist regarding patient. [facility] Adult unit intake called back to set up zoom intake meeting and RN made them aware of patient change in status. Adult intake stated for the floor staff to call them tomorrow prior to patient discharge to do the zoom meeting and they will keep all of his info and paperwork on file. [facility] also called and updated patient with this info as well
--- NOTE | 2023-01-05 21:40 | PC.NURSE ---
CALL PLACED TO HOUSE FOR BED ASSIGNMENT: HOSPITALIST ADMIT FOR BETA BRANDY OD;
--- NOTE | 2023-01-05 21:42 | PC.NURSE ---
Admissions notified for admit
--- NOTE | 2023-01-05 22:05 | PC.NURSE ---
called report to 2nd floor nurse Jessie HEIN and answered all questions and passed along all notes and paperwork for behavioral health
--- NOTE | 2023-01-05 22:16 | PC.NURSE ---
pt arrived to floor at this time
--- NOTE | 2023-01-05 22:28 | EXP.HP ---
History of Present Illness *Admission Date: 01/05/23 *Reason for visit:: SA *History of present illness: This is a 47 yo male with PMHx PTSD, ED, CVA, HTN, tobacco user who presented for evaluation following intentional overdose of his mother's medication which included a combination of 30 pills in total, combination of HCTZ 25 mg, metoprolol 50 mg, losartan 50 mg. Per ER provider this event occurred at approximately noon today with self-injurious and suicidal intent. Patient denied any chronic medical issues himself, continues to express suicidal ideation, however denies any other somatic symptoms at this time including chest pain, shortness of breath, weakness, numbness, fevers, chills, headache, palpitations. No other substance ingestion nor recreational drug use. Patient presents with family member at bedside who corroborates patient's story. Of note, however, initial history was obtained while the electronic medical record was down, and thus, I was unable to independently verify patient's medical history in conjunction with the electronic medical record. No previous therapies performed by EMS who brought patient to the emergency department. Patient denies any auditory or visual hallucinations. Admitted for observation. [facility] Disclaimer: The information contained in this section may have been updated after the patient was seen, as this information can be updated by other users. Medical History (Updated 01/06/23 @ 00:41 by Talat Espinal APRN) History of venomous spider bite Nightmares associated with chronic post-traumatic stress disorder Posttraumatic stress disorder Social History Smoking Status: Current every day smoker tobacco type: cigarettes packs per day: 2 second hand exposure: Yes alcohol intake: never counseling given: No substance use type: former substance user and unknown counseling given: No current occupational status: employed Travel in the last 8 weeks: None adopted: No caregiver/support person: Yes (he has a 4 year old daughter) foster care: No household members: spouse housing: house lives independently: Yes marital status: number of children: 10 number of grandchildren: 6 education level: other details: went to the 7th grade; he was young and crazy; no GED Hx Recent Travel: No sexually active: No caffeine: Yes physical activity: none mark/religious: None special mark needs: No working smoke detector in home: Yes fire extinguisher in home: No carbon monox detector in home: No firearms in home: No do you feel safe at home: Yes Review of Systems Review of Systems Review of systems:: pertinent systems reviewed and negative unless documented below Review of systems (narrative): does Meds Home Medications and Allergies Home Medications Medication Instructions Recorded Confirmed Type prazosin 2 mg capsule 4 mg PO HS urinary retention 01/05/23 01/06/23 History hydroxyzine pamoate 25 mg capsule 25 mg PO HSP PRN Insomnia 01/06/23 01/06/23 History (Vistaril) sildenafil (pulm.hypertension) 20 40 mg PO NEEDED PRN sexual 01/06/23 01/06/23 History mg tablet activity New Prescriptions to Start Prescriptions: Allergies Allergy/AdvReac Type Severity Reaction Status Date / Time Penicillins Allergy Verified 11/02/22 13:48 Exam Data for Last 24 hours Vital signs and Labs for Last 24 Hours: Temp Pulse Resp BP Pulse Ox O2 Del Method 98.3 F 58 L 17 140/82 100 Room Air 01/05/23 22:24 01/05/23 22:24 01/05/23 22:24 01/05/23 22:24 01/05/23 22:24 01/05/23 22:24 Laboratory Results - last 24 hr 01/05/23 14:49: Urine Color Yellow, Urine Appearance Clear, Urine pH 6.0, Ur Specific [place] 1.010, Urine Protein Negative, Urine Glucose (UA) Negative, Urine Ketones Negative, Urine Blood Negative, Urine Nitrate Negative, Urine Bilirubin Negative, Uri
[2023-01-06] VITALS (8 sets, daily range): BP systolic 126–147; BP diastolic 56–90; PULSE 49–58; RESP 17–19; TEMP 37.2–37.7; O2SAT 97–100
--- NOTE | 2023-01-06 00:30 | ECG_ITS ---
APPROVED REPORT Exam: Resting ECG HR:51 bpm ECG Measurements Heart Rate 51 AXES QRSd 91 QRS -14 QT 442 T 7 QTc 420 Conclusion Significant sinus bradycardia with short MN interval ABNORMAL RHYTHM ECG UNCONFIRMED REPORT Electronically signed by : Edgar Diaz MD 01/07/2023 18:41:21
--- NOTE | 2023-01-06 03:14 | PC.NURSE ---
SRNA NOTIFIED THIS RN THAT PT IS CLAMMY; THIS RN CHECKED THIS PT'S BLOOD GLUCOSE LEVEL, RESULT 109 SRNA CHECKED VS AND ALL STABLE AND WNL THIS RN EDUCATED PT AND SITTER/SRNA TO ALERT ME IF PT FEELS HIS CONDITION IS WORSENING.
[2023-01-06 03:19] LABS: POC Glucose,Bedside 109 (70-110)
[2023-01-06 07:08] LABS: Basophils % 0.2 % (0.1-2.0); Eosinophils % 0.1 % (0.1-12.0); Hematocrit 41.5 % (42.0-52.0); Hemoglobin 13.9 g/dL (14.1-18.0); Lymphocytes # 2.2 K/mm3 (0.7-4.5); Lymphocytes % 17.2 % (10-50); Mean Corpuscular HGB Conc 33.4 g/dL (31.8-35.4); Mean Corpuscular Hemoglobin 29.1 pg (27.0-31.2); Mean Corpuscular Volume 87.2 fl (80-94); Monocytes # 0.7 K/mm3 (0.1-1.0); Monocytes % 5.7 % (1.7-9.3); Neutrophils # 9.8 K/mm3 (1.8-7.8); Neutrophils % 76.8 % (37.0-80.0); Platelet Count 280 K/mm3 (142-424); Red Blood Count 4.76 M/mm3 (4.60-6.20); Red Cell Distribution Width 13.5 % (11.5-17.5); White Blood Count 12.8 K/mm3 (4.8-10.8)
[2023-01-06 07:16] LABS: Alanine Aminotransferase 25 U/L (12-78); Albumin Level 4.4 g/dl (3.5-5.0); Albumin/Globulin Ratio 1.5 (1.1-1.8); Alkaline Phosphatase 83 U/L (38-126); Anion Gap 16.6 mEq/L (5-15); Aspartate Amino Transferase 26 U/L (17-59); Bilirubin,Total 0.8 mg/dl (0.2-1.3); Blood Urea Nitrogen 17 mg/dl (9-20); Calcium 9.3 mg/dl (8.4-10.2); Carbon Dioxide 21 mmol/L (22.0-30.0); Chloride 106 mmol/L (98-107); Chol/HDL Ratio 4.7 (1-3.5); Cholesterol 141 mg/dl (140-200); Creatinine Clearance Estimated 96 mL/min (50-200); Estimated Glomerular Filt Rate 103 ml/min (>60); GFR (African American) 125 ML/MIN (>60); Globulin 2.9 g/dL (1.3-3.2); Glucose 123 mg/dl (74-100); HDL Cholesterol 30 mg/dl (40-60); Potassium 3.6 mmoL/L (3.5-5.1); Sodium 140 mmol/L (136-145); Total Protein,Serum 7.3 g/dl (6.3-8.2); Triglycerides 93 mg/dl (30-150); VLDL Cholesterol 19 mg/dL (0-40)
--- NOTE | 2023-01-06 07:40 | HMH.PHAINT1 ---
Pharmacy Intervention Comments: MEDICATION RECONCILIATION COMPLETED ON PATIENT USING EXTERNAL FILL HISTORY FROM PHARMACY AND LIST FROM PCP OFFICE. -ROSETTA OTOOLE, ANABELAD
--- NOTE | 2023-01-06 08:29 | EXP.PN ---
Subjective *Date: 01/06/23 *Time: 14:17 Interval history: No acute events overnight. He denies SI/HI and hallucinations. Exam Data for Last 24 hours Vital signs and Labs for Last 24 Hours: Temp Pulse Resp BP Pulse Ox O2 Del Method 99.4 F 52 L 17 147/73 H 100 Room Air 01/06/23 07:39 01/06/23 07:39 01/06/23 07:39 01/06/23 07:39 01/06/23 07:39 01/06/23 07:39 Laboratory Results - last 24 hr 01/05/23 14:49: Urine Color Yellow, Urine Appearance Clear, Urine pH 6.0, Ur Specific [place] 1.010, Urine Protein Negative, Urine Glucose (UA) Negative, Urine Ketones Negative, Urine Blood Negative, Urine Nitrate Negative, Urine Bilirubin Negative, Urine Urobilinogen 1.0, Ur Leukocyte Esterase Negative, Urine RBC None, Urine WBC None, Ur Squamous Epith Cells Occasional, Urine Bacteria None 01/05/23 : WBC 10.7, RBC 5.08, Hgb 14.6, Hct 44.6, MCV 87.9, MCH 28.8, MCHC 32.8, RDW 13.6, Plt Count 293, MPV 7.4, Neut % (Auto) 76.2, Lymph % (Auto) 17.6, [place] % (Auto) 5.8, Eos % (Auto) 0.2, Baso % (Auto) 0.3, Neut # (Auto) 8.1 H, Lymph # (Auto) 1.9, [place] # (Auto) 0.6, Eos # (Auto) 0.0, Baso # (Auto) 0.0, Sodium 140, Potassium 4.1, Chloride 104, Carbon Dioxide 25, Anion Gap 15.1 H, BUN 14, Creatinine 0.90, Estimated Creat Clear 97, Estimated GFR 90, Est GFR ( Amer) 109, Glucose 118 H, Calcium 10.1, Total Bilirubin 1.0, AST 36, ALT 32, Alkaline Phosphatase 82, Total Protein 7.9, Albumin 4.7, Globulin 3.2, Albumin/Globulin Ratio 1.5, TSH 0.51, Salicylates < 1.0 L, Urine Opiates Screen Negative, Urine Methadone Screen Negative, Acetaminophen < 10 L, Ur Barbituates Screen Negative, Ur Phencyclidine Scrn Negative, Ur Amphetamines Screen Negative, U Benzodiazepines Scrn Negative, Urine Cocaine Screen Negative, U Marijuana (THC) Screen Negative, Plasma/Serum Alcohol < 10, SARS-CoV-2 (PCR) Not detected, Influenza A Untype (PCR) Not detected, Influenza Type B (PCR) Not detected 01/06/23 03:11: POC Glucose 109 01/06/23 05:45: WBC 12.8 H, RBC 4.76, Hgb 13.9 L, Hct 41.5 L, MCV 87.2, MCH 29.1, MCHC 33.4, RDW 13.5, Plt Count 280, MPV 8.0, Neut % (Auto) 76.8, Lymph % (Auto) 17.2, [place] % (Auto) 5.7, Eos % (Auto) 0.1, Baso % (Auto) 0.2, Neut # (Auto) 9.8 H, Lymph # (Auto) 2.2, [place] # (Auto) 0.7, Eos # (Auto) 0.0, Baso # (Auto) 0.0, Sodium 140, Potassium 3.6, Chloride 106, Carbon Dioxide 21 L, Anion Gap 16.6 H, BUN 17, Creatinine 0.80, Estimated Creat Clear 96, Estimated GFR 103, Est GFR ( Amer) 125, Glucose 123 H, Calcium 9.3, Total Bilirubin 0.8, AST 26 D, ALT 25, Alkaline Phosphatase 83, Total Protein 7.3, Albumin 4.4, Globulin 2.9, Albumin/Globulin Ratio 1.5, Triglycerides 93, Cholesterol 141, LDL Cholesterol Direct 89.00 L, VLDL Cholesterol 19, HDL Cholesterol 30 L, Cholesterol/HDL Ratio 4.7 H I & O for Last 24 hours: Intake & Output 01/03/23 01/04/23 01/05/23 01/06/23 23:59 23:59 23:59 23:59 Intake Total 1096 / 1096 Output Total 100 / 100 Balance 996 / 996 Weight 59.965 kg Constitutional Constitutional: no acute distress *Routine HEENT Exam Head: Present normocephalic Eye: Present EOMI and PERRL ENT: Present mucous membranes moist *Routine Neck Exam Neck: Present supple; Absent lymphadenopathy *Routine Respiratory Exam Respiratory: Present CTA bilaterally *Routine Cardiovascular Exam Cardiovascular: Present RRR *Routine Abdominal Exam Abdominal: Present soft and normoactive bowel sounds; Absent tenderness *Routine Extremities Exam Extremities: Absent cyanosis, clubbing or edema *Routine Skin Exam Skin: Present warm; Absent rash *Routine Neurological Exam Neurological: Present alert and oriented X3 Assessment and Plan *Assessment and plan (1) Suicide attempt by beta adrianne overdose: Status: Acute Qualifiers: Encounter type: initial encounter Qualified Code(s): T44.7X2A - Poisoning by beta-adrenoreceptor antagonists, intentional self-harm, initial encounter Category: Medical Code(s): T44
--- NOTE | 2023-01-06 10:51 | SW/DCPLANNER ---
Addendum entered by [facility] 01/06/23 16:17: Per Ermelinda [place] [employer] is on their way to transport patient. Addendum entered by [facility] 01/06/23 15:48: Ermelinda Gallegos stated that she will fax forms to [place] [employer] and she will arrange transport from Police to [facility] for patient. Ermelinda stated that at this point all that has to be done from [facility] standpoint is gather patient information and wait for transport to arrive at [facility]. Patient will be transported to [facility] today. Addendum entered by [facility] 01/06/23 15:22: Per Ermelinda Gallegos after speaking w/ patient's family he was not truthful during zoom assessment and now meets inpatient criteria for [facility]. Ermelinda will have paperwork completed and faxed to me today. Once paperwork is received and MD discharges patient I will call for police transport. Addendum entered by [facility] 01/06/23 14:05: Ermelinda Gallegos stated that patient will have an outpatient appointment schedule w/ [facility] between 5PM-7PM tomorrow. Patient is agreeable to outpatient appointment plan. Ermelinda will call and follow up with patient's mom regarding this plan due to patient residing at home with his mother. I will follow up with Ermelinda once she speaks with patient's mother. Addendum entered by [facility] 01/06/23 13:47: Ermelinda w/ [facility] ([phone]) is currently completing Involuntary Assessment while I am at bedside. Addendum entered by [facility] 01/06/23 11:42: Per MD request Involuntary Hold paperwork has been completed for Director Of Promotions [employer] to review and sign off. Information has been sent the Director Of Promotions at this time. Once paperwork is completed I will set up Zoom Assessment w/ [facility] to make decision if patient meets inpatient criteria w/ [facility]. I have updated patient regarding situation. Original Note: Patient currently has a Behavioral Health consult due to suicidal ideation. I will follow up w/ Juwan Farooq regarding discharge plans once she evaluates this patient. Per MD patient is medically stable for discharge today.
--- NOTE | 2023-01-06 15:25 | EXP.DC.SUM ---
General Admission date:: 01/05/23 Discharge date: 01/06/23 HPI HPI HPI: Forwarded from Admission H&P: This is a 47 yo male with PMHx PTSD, ED, CVA, HTN, tobacco user who presented for evaluation following intentional overdose of his mother's medication which included a combination of 30 pills in total, combination of HCTZ 25 mg, metoprolol 50 mg, losartan 50 mg. Per ER provider this event occurred at approximately noon today with self-injurious and suicidal intent. Patient denied any chronic medical issues himself, continues to express suicidal ideation, however denies any other somatic symptoms at this time including chest pain, shortness of breath, weakness, numbness, fevers, chills, headache, palpitations. No other substance ingestion nor recreational drug use. Patient presents with family member at bedside who corroborates patient's story. Of note, however, initial history was obtained while the electronic medical record was down, and thus, I was unable to independently verify patient's medical history in conjunction with the electronic medical record. No previous therapies performed by EMS who brought patient to the emergency department. Patient denies any auditory or visual hallucinations. Admitted for observation. Hospital Course Hospital Course Hospital Course: The patient overdosed a total of around 30 antihypertensive medications including hctz 25mg tablets, metoproll 50mg tablets and losartan 50mg tablets. Suicide precautions were taken and a sitter was with the patient throughout the entire hosptial stay. Despite taking such high doses of antihypertensive medications, the patient did not have overt hypotension. The patient was monitored continuously with telemetry and HR was mostly near 50. At the time of discharge blood pressure was 126/77 and HR was 53. The patient was evaluated by [facility] and met criteria for admission to an inpatient psychiatric facility. He will be discharging to [facility]. Exam Data for Last 24 hours Vital signs and Labs for Last 24 Hours: Temp Pulse Resp BP Pulse Ox O2 Del Method 99.9 F H 53 L 19 126/77 98 Room Air 01/06/23 15:12 01/06/23 15:12 01/06/23 15:12 01/06/23 15:12 01/06/23 15:12 01/06/23 15:12 Laboratory Results - last 24 hr 01/05/23 14:49: Urine Color Yellow, Urine Appearance Clear, Urine pH 6.0, Ur Specific [place] 1.010, Urine Protein Negative, Urine Glucose (UA) Negative, Urine Ketones Negative, Urine Blood Negative, Urine Nitrate Negative, Urine Bilirubin Negative, Urine Urobilinogen 1.0, Ur Leukocyte Esterase Negative, Urine RBC None, Urine WBC None, Ur Squamous Epith Cells Occasional, Urine Bacteria None 01/05/23 : WBC 10.7, RBC 5.08, Hgb 14.6, Hct 44.6, MCV 87.9, MCH 28.8, MCHC 32.8, RDW 13.6, Plt Count 293, MPV 7.4, Neut % (Auto) 76.2, Lymph % (Auto) 17.6, [place] % (Auto) 5.8, Eos % (Auto) 0.2, Baso % (Auto) 0.3, Neut # (Auto) 8.1 H, Lymph # (Auto) 1.9, [place] # (Auto) 0.6, Eos # (Auto) 0.0, Baso # (Auto) 0.0, Sodium 140, Potassium 4.1, Chloride 104, Carbon Dioxide 25, Anion Gap 15.1 H, BUN 14, Creatinine 0.90, Estimated Creat Clear 97, Estimated GFR 90, Est GFR ( Amer) 109, Glucose 118 H, Calcium 10.1, Total Bilirubin 1.0, AST 36, ALT 32, Alkaline Phosphatase 82, Total Protein 7.9, Albumin 4.7, Globulin 3.2, Albumin/Globulin Ratio 1.5, TSH 0.51, Salicylates < 1.0 L, Urine Opiates Screen Negative, Urine Methadone Screen Negative, Acetaminophen < 10 L, Ur Barbituates Screen Negative, Ur Phencyclidine Scrn Negative, Ur Amphetamines Screen Negative, U Benzodiazepines Scrn Negative, Urine Cocaine Screen Negative, U Marijuana (THC) Screen Negative, Plasma/Serum Alcohol < 10, SARS-CoV-2 (PCR) Not detected, Influenza A Untype (PCR) Not detected, Influenza Type B (PCR) Not detected 01/06/23 03:11: POC Glucose 109 01/06/23 05:45: WBC 12.8 H, RBC 4.76, Hgb 13.9 L, Hct 41.5 L, MCV 87.2, MCH 29.1, MCHC 33.4, RDW 13.5, Plt Count 280, MPV 8.0, Neut % (Auto) 76.8, Lymph % (Auto)
--- NOTE | 2023-01-06 16:47 | EXP.BH.CONS ---
History of Present Illness *Admission Date: 01/05/23 *History of present illness: I saw patient at his bedside. -he is alone in the room -consulted for intentional overdose He states that he 'just got to feeling bad' -so he took a bunch of his mom's blood pressure pills -he states that he has been stressed out -just a bunch of shit going on -but states i'll be alright -he states that he is not sure if he wanted to when he took the pills -he just wanted all his stressors to be gone -he states that he is going through a divorce -they have been together off and on for 17 years -and for 6 -she filed for divorce -but it was mutual decision -they have 2 kids together; ages 12 and 5 years old -he does see them He states that he has never done anything like this before. 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 -states that he doesn't want to be on them either -that 'I'll be alright He denies that any event or trigger happened last night to make him overdose. -that it was just on impulse -denies that this was a planned thing -he states that he overdosed then about an hour later; he told his mom -mom called 911 for him -he didn't feel funny or anything -not sure why he told her -he denies any SI/HI/SH at this time. He is however deflecting questions. -he will answer everything with 'I'll be alright' -he won't give an answer as to what he is going to do to be alright; he just keeps saying 'I'll be alright' [facility] Disclaimer: The information contained in this section may have been updated after the patient was seen, as this information can be updated by other users. Medical History (Updated 01/06/23 @ 00:41 by Talat Espinal APRN) History of venomous spider bite Nightmares associated with chronic post-traumatic stress disorder Posttraumatic stress disorder Social History (Reviewed 06/26/23 @ 13:55 by JM Melara Smoking Status: Current every day smoker tobacco type: cigarettes packs per day: 2 second hand exposure: Yes alcohol intake: never counseling given: No substance use type: former substance user and unknown counseling given: No current occupational status: employed Travel in the last 8 weeks: None adopted: No caregiver/support person: Yes (he has a 4 year old daughter) foster care: No household members: spouse housing: house lives independently: Yes marital status: number of children: 10 number of grandchildren: 6 education level: other details: went to the 7th grade; he was young and crazy; no GED Hx Recent Travel: No sexually active: No caffeine: Yes physical activity: none mark/synagogue: None special mark needs: No working smoke detector in home: Yes fire extinguisher in home: No carbon monox detector in home: No firearms in home: No do you feel safe at home: Yes Meds Home Medications and Allergies Home Medications Medication Instructions Recorded Confirmed Type prazosin 2 mg capsule 4 mg PO HS urinary retention 01/05/23 01/06/23 History hydroxyzine pamoate 25 mg capsule 25 mg PO HSP PRN Insomnia 01/06/23 01/06/23 History (Vistaril) sildenafil (pulm.hypertension) 20 40 mg PO NEEDED PRN sexual 01/06/23 01/06/23 History mg tablet activity New Prescriptions to Start Prescriptions: Allergies Allergy/AdvReac Type Severity Reaction Status Date / Time Penicillins Allergy Verified 11/02/22 13:48 Assessment and Plan *Assessment and plan (1) MDD (major depressive disorder), severe: Status: Acute Category: Medical Code(s): F32.2 - Major depressive disorder, single episode, severe without psychotic features (2) Suicide attempt by beta adrianne overdose:
--- NOTE | 2023-01-06 18:27 | PC.NURSE ---
pt still one on one, family at bs. waiting on pts ride to [facility]
--- NOTE | 2023-01-06 19:08 | PC.NURSE ---
mechanical design technician arrived to transport patient to [facility]. paperwork/court order given to them.
== END 2023-01-06 18:59 | DRG 918 ==
LOC: ER 21:38 → 2ND 22:18
PROVIDERS: Nurse Practitioner Family; Admitting Provider Internal Medicine; Emergency Provider Emergency Medicine; PCP Emergency Medicine; Visit Provider Internal Medicine
DX: T44.7X2A Poisoning by beta-adrenoreceptor antagonists, intentional self-harm, initial encounter (principal); F32.2 Major depressive disorder, single episode, severe without psychotic features; N17.9 Acute kidney failure, unspecified; F17.210 Nicotine dependence, cigarettes, uncomplicated; F43.10 Post-traumatic stress disorder, unspecified; Z86.73 Personal history of transient ischemic attack (TIA), and cerebral infarction without residual deficits
CPT/HCPCS: 36415; 80053; 80061; 80305; 80329; 81001; 82962; 84443; 85025; 87636; 93005; 99285; J2405

== ENCOUNTER → 2023-03-17 23:33 | Outpatient (CLI) | payer OTHER, SELFPAY ==
[2023-03-17 19:39] LABS: Basophils # 0.1 K/mm3 (0-0.2); Basophils % 0.6 % (0.1-2.0); Eosinophils # 0.1 K/mm3 (0.0-0.4); Eosinophils % 1.5 % (0.1-12.0); Hematocrit 39.5 % (42.0-52.0); Hemoglobin 13.9 g/dL (14.1-18.0); Lymphocytes # 2.7 K/mm3 (0.7-4.5); Lymphocytes % 33.5 % (10-50); Mean Corpuscular HGB Conc 35.1 g/dL (31.8-35.4); Mean Corpuscular Hemoglobin 31.2 pg (27.0-31.2); Mean Corpuscular Volume 88.9 fl (80-94); Mean Platelet Volume 8.8 fl (7.4-10.4); Monocytes # 0.6 K/mm3 (0.1-1.0); Monocytes % 6.9 % (1.7-9.3); Neutrophils # 4.6 K/mm3 (1.8-7.8); Neutrophils % 57.5 % (37.0-80.0); Platelet Count 287 K/mm3 (142-424); Red Blood Count 4.44 M/mm3 (4.60-6.20); Red Cell Distribution Width 13.4 % (11.5-17.5)
[2023-03-17 20:02] LABS: Erythrocyte Sedimentation Rate 12 mm/hr (0-15)
[2023-03-17 20:23] LABS: Alanine Aminotransferase 28 U/L (12-78); Albumin Level 4.6 g/dl (3.5-5.0); Albumin/Globulin Ratio 1.8 (1.1-1.8); Alkaline Phosphatase 69 U/L (38-126); Anion Gap 14.2 mEq/L (5-15); Aspartate Amino Transferase 35 U/L (17-59); Bilirubin,Total 0.3 mg/dl (0.2-1.3); Blood Urea Nitrogen 13 mg/dl (9-20); Calcium 9.4 mg/dl (8.4-10.2); Carbon Dioxide 28 mmol/L (22.0-30.0); Chloride 100 mmol/L (98-107); Estimated Glomerular Filt Rate 103 ml/min (>60); GFR (African American) 125 ML/MIN (>60); Globulin 2.6 g/dL (1.3-3.2); Glucose 99 mg/dl (74-100); Potassium 4.2 mmoL/L (3.5-5.1); Sodium 138 mmol/L (136-145); Total Protein,Serum 7.2 g/dl (6.3-8.2); Uric Acid 4.6 mg/dl (3.5-8.5)
[2023-03-17 20:29] LABS: C-Reactive Protein 1.3 mg/L (0-4)
[2023-03-17 20:54] LABS: Thyroid Stimulating Hormone 0.85 uIU/mL (0.465-4.68)
[2023-03-19 05:26] LABS: HIV Screen 4th Generation wRfx Non Reactive (Non Reactive)
[2023-03-19 10:12] LABS: RA Latex Turbid. <10.0 IU/mL (<14.0)
[2023-03-19 12:18] LABS: HBsAg Screen Negative (Negative); HCV Ab Non Reactive (Non Reactive); Hep A Ab, IGM Negative (Negative); Hep B Core Ab, IgM Negative (Negative)
[2023-03-22 09:49] LABS: Antinuclear Antibodies, IFA Positive
[2023-03-31 12:14] LABS: 1,25 Dihydroxy Vitamin D 45 pg/mL (.); 1,25-Dihydroxy, Vitamin D-2 <10 pg/mL (.); 1,25-Dihydroxy, Vitamin D-3 45 pg/mL (.)
== END ==
LOC: LAB.DROPOF 23:33
PROVIDERS: PCP Emergency Medicine; Visit Provider Internal Medicine
DX: F19.90 Other psychoactive substance use, unspecified, uncomplicated (principal); M12.9 Arthropathy, unspecified; Z68.1 Body mass index [BMI] 19.9 or less, adult
CPT/HCPCS: 80053; 80074; 82652; 84443; 84550; 85025; 85651; 86038; 86140; 86431; 86703; G0432

== ENCOUNTER → 2023-05-07 08:37 | Outpatient (CLI) | payer OTHER, SELFPAY ==
[2023-05-08 09:17] LABS: Complement C3 98 mg/dL (82-167); Rapid Plasma Reagin Ab Titer Non Reactive titer (NonRea<1:1)
[2023-05-11 12:10] LABS: Anti-DNA (DS) Ab Qn 1 IU/mL (0-9); RNP Antibodies <0.2 AI (0.0-0.9); Sjogren's Anti-SS-A <0.2 AI (0.0-0.9); Sjogren's Anti-SS-B <0.2 AI (0.0-0.9)
[2023-05-11 13:40] LABS: Complement, Total (CH50) 50 U/mL (>41)
[2023-05-26 08:27] LABS: Anti-Ro (SS-A) Ab (RDL) < 20
== END ==
LOC: LAB 08:39
PROVIDERS: PCP Internal Medicine; Visit Provider Internal Medicine
DX: L93.0 Discoid lupus erythematosus (principal); M79.641 Pain in right hand; M79.642 Pain in left hand
CPT/HCPCS: 36415; 86161; 86162; 86225; 86235; 86593; 86880

== ENCOUNTER 2023-07-31 20:33 | Emergency (ER) | payer OTHER, SELFPAY ==
[2023-07-31 20:34] VITALS: BP 118/83; PULSE 82; RESP 17; TEMP 36.9; O2SAT 97; BMI 20.9
--- NOTE | 2023-07-31 20:49 | XR_ITS ---
PROCEDURE INFORMATION: Exam: XR Right Wrist Exam date and time: 07/31/2023 8:47 PM Age: 47 years old Clinical indication: Pain; Wrist; Right; Additional info: Injury, pain, wrist TECHNIQUE: Imaging protocol: Radiologic exam of the right wrist. Views: 3 or more views. COMPARISON: CR Hand R 07/31/2023 8:45 PM FINDINGS: Bones/joints: Normal. Soft tissues: Normal. IMPRESSION: No acute findings.
--- NOTE | 2023-07-31 20:49 | XR_ITS ---
PROCEDURE INFORMATION: Exam: XR Right Hand Exam date and time: 07/31/2023 8:45 PM Age: 47 years old Clinical indication: Pain; Hand; Right; Additional info: Injury, pain, swelling TECHNIQUE: Imaging protocol: Radiologic exam of the right hand. Views: 3 or more views. COMPARISON: CR XR HAND RT MIN 3V 03/30/2019 4:49 PM FINDINGS: Bones/joints: Normal. Soft tissues: Normal. IMPRESSION: No acute findings.
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
[2023-07-31 21:38] VITALS: BP 110/65; PULSE 78; RESP 18; TEMP 36.7; O2SAT 97
== END 2023-07-31 21:39 | disposition home or self-care (01) ==
PROVIDERS: Emergency Provider Emergency Medicine; PCP Internal Medicine
DX: M79.641 Pain in right hand (principal); F43.12 Post-traumatic stress disorder, chronic; F17.210 Nicotine dependence, cigarettes, uncomplicated
CPT/HCPCS: 73110; 73130; 99283

== ENCOUNTER 2023-09-23 19:45 | Emergency (ER) | payer OTHER, SELFPAY ==
[2023-09-23 19:46] VITALS: BP 114/80; PULSE 65; RESP 18; TEMP 36.8; O2SAT 99; BMI 20.3
--- NOTE | 2023-09-23 20:06 | XR_ITS ---
PROCEDURE INFORMATION: Exam: XR Right Shoulder Exam date and time: 09/23/2023 8:06 PM Age: 48 years old Clinical indication: Pain; Shoulder; Right TECHNIQUE: Imaging protocol: Radiologic exam of the right shoulder. Views: 2 or more views. COMPARISON: CR XR CHEST PORTABLE 12/30/2020 11:20 PM FINDINGS: Bones/joints: No acute fracture or dislocation. Normal bone mineralization. Acromioclavicular joint is normal. Glenohumeral joint is normal. Included ribs are unremarkable. Soft tissues: No soft tissue swelling or radiopaque foreign body. IMPRESSION: No acute findings.
--- NOTE | 2023-09-23 20:31 | ED_ITS ---
<Statement entered by Jasmyne Menendez DO - 09/23/23 23:17> I was consulted by the MACY, and we discussed the complexity of the problems being addressed. I approved the treatment and management plan for this patient's care in the emergency department, thus performing a substantive portion of the medical decision making. Jasmyne Menendez DO Discharge Plan Disposition Patient Disposition: Home, Self-Care Condition: Good Prescriptions Prescriptions: New prednisone 50 mg tablet 50 mg PO DAILY 5 Days Qty: 5 0RF No Action buprenorphine-naloxone 8-2 mg film 2 film sublingual DAILY sildenafil (pulm.hypertension) 20 mg tablet 40 mg PO NEEDED PRN (Reason: sexual activity) Qty: 20 2RF Rx Instructions: administer doses at least 4-6 hours apart olanzapine [Zyprexa] 5 mg tablet 10 mg PO DAILY 30 Days Qty: 60 1RF hydroxyzine pamoate [Vistaril] 25 mg capsule 25 mg PO Q12H Qty: 60 1RF prazosin 2 mg capsule 6 mg PO HS 30 Days Qty: 90 1RF prednisone 20 mg tablet See Rx Instructions .Route .COMPLEX Qty: 10 0RF Rx Instructions: Take 1 tablet twice daily for 5 days Referrals Follow up/Referrals: Esvin Garcia DO [Staff Physician] - See instructions Ap Eddy DO [Primary Care Provider] - See instructions Activity Restrictions/Add. Instructions Additional Instructions/Restrictions: Follow-up with your PCP as scheduled. I referred you to orthopedics for further evaluation. Return emergency department as needed for any worsening signs or symptoms. Clinical Impressions Clinical Impression: Arthralgia of shoulder region, right Discharge ED Provider: Jasmyne Menendez General Adult HPI General Chief complaint: PAIN Stated complaint: Right shoulder pain Time Seen by Provider: 09/23/23 20:13 Mode of Arrival: Ambulatory Source of Information: Patient Limitations: No Limitations Description of Symptoms (Recalled from ER Triage Doc. by RN): 48 M presents with right shoulder pain that started 3-4 days ago. Patient is unsure of injury, but states he was picking up his daughter and that's when he noticed. Patient CMS intact. History of Present Illness HPI narrative: Patient presents for right shoulder pain evaluation. Patient reports that he picked up his 50 pound daughter and felt a pop in his right shoulder approximately 3 to 4 days ago. He has continued to have pain since then. Patient denies any previous known trauma or injury to that shoulder. He is neurovascularly intact distally has no paresthesias. He has no chest pain shortness of breath fever chills hemoptysis hematochezia melena nausea vomit diarrhea. Related Data Home Medications Medication Instructions Recorded Confirmed buprenorphine 8 mg-naloxone 2 mg 2 film sublingual DAILY 03/08/23 05/24/23 sublingual film Previous Rx's Medication Instructions Recorded sildenafil (pulm.hypertension) 20 40 mg (2 x 20 mg) PO NEEDED PRN 03/08/23 mg tablet sexual activity #20 tabs hydroxyzine pamoate 25 mg capsule 25 mg PO Q12H Insomnia #60 caps 04/15/23 (Vistaril) olanzapine 5 mg tablet (Zyprexa) 10 mg (2 x 5 mg) PO DAILY 30 days 04/15/23 #60 tabs prazosin 2 mg capsule 6 mg (3 x 2 mg) PO HS urinary 04/15/23 retention 30 days #90 caps prednisone 20 mg tablet See Rx Instructions .Route 06/30/23 .COMPLEX #10 tabs prednisone 50 mg tablet 50 mg PO DAILY 5 days #5 tabs 09/23/23 Allergies Allergy/AdvReac Type Severity Reaction Status Date / Time Penicillins Allergy Verified 05/24/23 08:24 [facility] Disclaimer: The information contained in this section may have been updated after the patient was seen, as this information can be updated by other users. Medical History History of venomous spider bite Nightmares associated with chronic post-traumatic stress disorder Posttraumatic stress disorder Social History Smoking Status: Current every day smoker tobacco type: cigarettes packs per day: 2 second hand exposure: Yes alcohol intake: never counseling given: No substance use type: former substance user and unknown counseling given: No current occupational status: employed Travel in the last 8 weeks: None adopted: No caregiver/support person: Yes (he has a 4 year old daughter) foster care: No household members: spouse housing: house lives independently: Yes marital status: number of children: 10 number of grandchildren: 6 education level: other details: went to the 7th grade; he was young and crazy; no GED Hx Recent Travel: No sexually active: No caffeine: Yes physical activity: none mark/advent: None special mark needs: No working smoke detector in home: Yes fire extinguisher in home: No carbon monox detector in home: No firearms in home: No do you feel safe at home: Yes ROS Obtained: Yes Systems reviewed as appropriate & no additional complaints except as documented Physical Exam General General appearance: alert and in no apparent distress Neck Neck exam: Present normal inspection and full ROM; Absent tenderness Respiratory Respiratory exam: Present normal lung sounds bilaterally Cardiovascular Cardiovascular exam: Present regular rate and normal rhythm Extremities Exam Extremities exam: Present normal inspection Back Exam Back exam: Present full ROM; Absent normal inspection (Patient has scoliosis along with slight winging of the right scapula, although these are chronic.) Neurological Exam Neurological exam: Present alert, oriented X3 and CN II-XII intact Skin Skin exam: Present warm, dry and normal color Other Other exam information: Patient has tenderness to palpation along the bicipital groove, under the the AC joint of the right upper extremity however I do not feel crepitus, muscle streng th is 5 out of 5 motor and sensory intact distally and patient has slight aching pain with range of motion testing. Patient has no paresthesias. Medical Decision Making Medical Records Medical records reviewed: Yes I reviewed the patient's medical records. Gus Inquiry Pt receiving controlled substance: No Vital Signs: 09/23/23 19:46 09/23/23 21:16 Temperature 98.2 F 98.2 F Temperature Source Oral Oral Pulse Rate 75 Pulse Rate [Right] 65 Respiratory Rate 18 19 Blood Pressure 125/70 Blood Pressure [Left Arm] 114/80 Blood Pressure Mean [Left Arm] 91 Blood Pressure Source Automatic Cuff Blood Pressure Source [Left Arm] Automatic Cuff Blood Pressure Position Sitting Blood Pressure Position [Left Arm] Sitting 02 Sat by Pulse Oximetry 99 Oxygen Delivery Method Room Air Room Air Orders (Tests/Meds): ED MEDICATIONS Discontinued Medications Generic Name Dose Route Start Last Admin Trade Name Freq PRN Reason Stop Dose Admin Acetaminophen 1,000 mg 09/23/23 20:37 09/23/23 20:46 Acetaminophen 500mg Tab PO 09/23/23 20:38 1,000 mg ONCE ONE Administration Dexamethasone 10 mg 09/23/23 20:37 09/23/23 20:47 Dexamethasone 4mg Tablet PO 09/23/23 20:38 10 mg ONCE ONE Administration Ketorolac Tromethamine 60 mg 09/23/23 20:37 09/23/23 20:47 Ketorolac 60mg/2ml Vial IM 09/23/23 20:38 Not Given ONCE ONE Oxycodone HCl 5 mg 09/23/23 20:39 09/23/23 20:47 Oxycodone 5mg Immediate Release Tablet PO 09/23/23 20:40 Not Given ONCE ONE ORDERS Category Date Time Status XR shoulder RT min 2V Stat Exams 09/23/23 20:06 Completed Medical Decision Narrative: In summary patient is a 48-year-old male who presents to the emergency department for evaluation of right shoulder arthralgia. Patient is hemodynamically stable upon arrival, afebrile. Physical exam is remarkable for painful range of motion of the right upper extremity and tenderness in the bicipital groove and at the AC joint but no limits of his range of motion and muscle strength is 5 out of 5. Differential diagnosis includes tendinitis versus labrum tear versus joint effusion etc. Initial workup will be conducted with plain film x-rays. Initial interventions include Toradol Decadron acetaminophen oxycodone. Initial workup reviewed by me shows no acute fractures.. Upon repeat evaluation significant reduction in his discomfort. Given this patient is appropriate for discharge with a steroid Dosepak and follow-up referral with orthopedic surgery. Critical Care Critical Care Time Critical Care Time: No
[2023-09-23] MEDS: ACETAMINOPHEN 500MG TAB 1000 MG PO (20:46)
[2023-09-23] MEDS: DEXAMETHASONE 4MG TABLET 10 MG PO (20:47)
[2023-09-23 21:16] VITALS: BP 125/70; PULSE 75; RESP 19; TEMP 36.8; O2SAT 98
== END 2023-09-23 21:19 | disposition home or self-care (01) ==
PROVIDERS: Emergency Provider Emergency Medicine; PCP Internal Medicine
DX: M25.511 Pain in right shoulder (principal); F17.210 Nicotine dependence, cigarettes, uncomplicated
CPT/HCPCS: 73030; 96372; 99283

== ENCOUNTER 2024-02-21 11:06 | Outpatient (CLI) | payer OTHER, SELFPAY ==
--- NOTE | 2024-02-21 11:09 | XR_ITS ---
FINAL REPORT CLINICAL HISTORY: right shoulder pain COMPARISON: None FINDINGS: RIGHT SHOULDER Three views demonstrate no acute fracture or dislocation. The visualized joint spaces are normally aligned. The soft tissues are unremarkable. There is mild hypertrophic change of the greater tuberosity of the proximal humerus. IMPRESSION: Mild hypertrophic change greater tuberosity of the proximal humerus. No acute bony abnormality identified. Reviewed, Interpreted and Dictated by Arie Trevino MD Transcribed by Jamilah Ramos Authenticated and [facility]
== END 2024-02-21 23:59 | disposition home or self-care (01) ==
PROVIDERS: PCP Internal Medicine; Visit Provider Physician Assistant
DX: M25.511 Pain in right shoulder (principal)
CPT/HCPCS: 73030

== ENCOUNTER 2024-03-08 18:01 | Emergency (ER) | payer OTHER, SELFPAY ==
[2024-03-08 18:02] VITALS: BP 122/76; PULSE 78; RESP 18; TEMP 36.8; O2SAT 100; BMI 20.3
--- NOTE | 2024-03-08 18:04 | ED_ITS ---
<Statement entered by Jasmyne Menendez DO - 03/09/24 01:16> I was consulted by the MACY, and we discussed the complexity of the problems being addressed. I approved the treatment and management plan for this patient's care in the emergency department, thus performing a substantive portion of the medical decision making. Jasmyne Menendez DO Discharge Plan Disposition Patient Disposition: Home, Self-Care Condition: Good Prescriptions Prescriptions: New lidocaine 5 % adhesive patch,medicated 1 patch topical DAILY Qty: 30 0RF Rx Instructions: leave on most painful area for up to 12 hrs No Action buprenorphine-naloxone 8-2 mg film 2 film sublingual DAILY sildenafil (pulm.hypertension) 20 mg tablet 40 mg PO NEEDED PRN (Reason: sexual activity) Qty: 20 2RF Rx Instructions: administer doses at least 4-6 hours apart olanzapine [Zyprexa] 5 mg tablet 10 mg PO DAILY 30 Days Qty: 60 1RF hydroxyzine pamoate [Vistaril] 25 mg capsule 25 mg PO Q12H Qty: 60 1RF prazosin 2 mg capsule 6 mg PO HS 30 Days Qty: 90 1RF prednisone 20 mg tablet See Rx Instructions .Route .COMPLEX Qty: 10 0RF Rx Instructions: Take 1 tablet twice daily for 5 days Nurtec ODT 75 mg tablet,disintegrating 75 mg PO Q OTHER DAY Qty: 15 8RF prednisone 50 mg tablet 50 mg PO DAILY 5 Days Qty: 5 0RF Referrals Follow up/Referrals: Ap Eddy DO [Primary Care Provider] - See instructions Activity Restrictions/Add. Instructions Additional Instructions/Restrictions: Please schedule follow-up with Dr. Eddy for recheck. Sent a prescription for Lidoderm patches to your pharmacy. Return to the ER for any worsening signs or symptoms as needed. Clinical Impressions Clinical Impression: Dislocation of costal cartilage Print Language Print Language: Tajik Discharge ED Provider: Jasmyne Menendez General Adult HPI General Chief complaint: PAIN Stated complaint: AO03/07 breastplate pain Time Seen by Provider: 03/08/24 18:04 History of Present Illness HPI narrative: Patient presents for evaluation of anterior chest wall pain. Patient reports that he was lifting a 5 gallon bucket of paint onto the bed of his truck and fel t a sharp pop in the left anterior chest. It has persisted and he feels what appears to be something sticking out . He denies fever chills hemoptysis hematochezia melena nausea vomiting diarrhea shortness of breath or cardiac chest pain. Related Data Home Medications ?Medication ?Instructions ?Recorded ?Confirmed buprenorphine 8 mg-naloxone 2 mg 2 film sublingual DAILY 03/08/23 02/21/24 sublingual film Previous Rx's ?Medication ?Instructions ?Recorded sildenafil (pulm.hypertension) 20 40 mg (2 x 20 mg) PO NEEDED PRN 03/08/23 mg tablet sexual activity #20 tabs hydroxyzine pamoate 25 mg capsule 25 mg PO Q12H Insomnia #60 caps 04/15/23 (Vistaril) olanzapine 5 mg tablet (Zyprexa) 10 mg (2 x 5 mg) PO DAILY 30 days 04/15/23 #60 tabs prazosin 2 mg capsule 6 mg (3 x 2 mg) PO HS urinary 04/15/23 retention 30 days #90 caps prednisone 20 mg tablet See Rx Instructions .Route 06/30/23 .COMPLEX #10 tabs prednisone 50 mg tablet 50 mg PO DAILY 5 days #5 tabs 09/23/23 rimegepant 75 mg disintegrating 75 mg PO Q OTHER DAY #15 tabs 10/12/23 tablet (Nurtec ODT) lidocaine 5 % topical patch 1 patch topical DAILY #30 ea 03/08/24 Allergies Allergy/AdvReac Type Severity Reaction Status Date / Time Penicillins Allergy Verified 02/21/24 11:30 [facility] Disclaimer: The information contained in this section may have been updated after the patient was seen, as this information can be updated by other users. Medical History Nightmares associated with chronic post-traumatic stress disorder Posttraumatic stress disorder History of venomous spider bite Social History Smoking Status: Current every day smoker tobacco type: cigarettes packs per day: 2 second hand exposure: Yes alcohol intake: never counseling given: No substance use type: former substance user and unknown counseling given: No current occupational status: employed Travel in the last 8 weeks: None adopted: No caregiver/support person: Yes (he has a 4 year old daughter) foster care: No household members: spouse housing: house lives independently: Yes marital status: number of children: 10 number of grandchildren: 6 education level: other details: went to the 7th grade; he was young and crazy; no GED Hx Recent Travel: No sexually active: No caffeine: Yes physical activity: none mark/muslim: None special mark needs: No working smoke detector in home: Yes fire extinguisher in home: No carbon monox detector in home: No firearms in home: No do you feel safe at home: Yes Other Medical History Have you received the Flu Vaccine for this season: No Have you received the Pneumonia Vaccine: No ROS Obtained: Yes Systems reviewed as appropriate & no additional complaints except as documented Physical Exam General General appearance: alert and in no apparent distress Respiratory Respiratory exam: Present normal lung sounds bilaterally Cardiovascular Cardiovascular exam: Present regular rate Neurological Exam Neurological exam: Present alert and oriented X3 Medical Decision Making Medical Records Screening: Per USPSTF and CDC recommendations, given the prevalence of disease in our region, it is our hospital?s policy to screen for HIV and viral Hepatitis for all patients aged 18 and over and those with ongoing risk factors. Gus Inquiry Pt receiving controlled substance: No Vital Signs: 03/08/24 18:02 03/08/24 18:13 03/08/24 19:44 Temperature 98.2 F 98.4 F Temperature Source Oral Oral Pulse Rate 75 67 Pulse Rate [Radial] 78 Respiratory Rate 18 16 Blood Pressure 113/79 118/82 Blood Pressure [Left Arm] 122/76 Blood Pressure Mean [Left Arm] 91 Blood Pressure Source Automatic Cuff Automatic Cuff Blood Pressure Source [Left Arm] Automatic Cuff Blood Pressure Position Sitting Blood Pressure Position [Left Arm] Sitting 02 Sat by Pulse Oximetry 100 99 100 Oxygen Delivery Method Room Air Room Air Room Air 03/08/24 22:32 Temperature 98.2 F Temperature Source Pulse Rate 70 Pulse Rate [Radial] Respiratory Rate 18 Blood Pressure 148/79 H Blood Pressure [Left Arm] Blood Pressure Mean [Left Arm] Blood Pressure Source Blood Pressure Source [Left Arm] Blood Pressure Position Blood Pressure Position [Left Arm] 02 Sat by Pulse Oximetry Oxygen Delivery Method Room Air Orders (Tests/Meds): ED MEDICATIONS Discontinued Medications Generic Name Dose Route Start Last Admin Trade Name Freq PRN Reason Stop Dose Admin Acetaminophen 1,000 mg 03/08/24 18:36 03/08/24 19:04 Acetaminophen 500mg Tab PO 03/08/24 18:37 1,000 mg ONCE ONE Administration Lidocaine 1 each 03/08/24 18:36 03/08/24 19:04 Lidocaine 5% Transdermal Patch TP 03/08/24 18:37 1 each ONCE ONE Administration Methocarbamol 500 mg 03/08/24 18:36 03/08/24 19:04 Methocarbamol 500mg Tablet PO 03/08/24 18:37 500 mg ONCE ONE Administration ORDERS Category Date Time Status CT chest wo con Stat Cat Scan 03/08/24 19:20 Completed Medical Decision Narrative: In summary patient is a 48-year-old male who presents to the emergency department for evaluation of left anterior chest wall pain. Patient is hemodynamically stable upon arrival, afebrile. Physical exam is remarkable for significant pectus excavated him, just lateral to the sternum there is a protuberance that feels to be a sternal chondral junction that is tender to palpation. There is no ecchymosis or fluctuance noted.. Differential diagnosis includes soft tissue injury versus dislocation of the sternochondral junction. Initial workup will be conducted with CT scan of the chest without contrast. Initial interventions include Tylenol Decadron Lidoderm patch. Initial workup reviewed by me shows the patient does have scoliosis in addition to the pectus excavated him and my informal interpretation shows a costal cartilage dislocation in the area of concern. Upon repeat evaluation patient actually reported some symptomatic improvement. Given this patient is appropriate for discharge with follow-up with his PCP and a prescription sent to his pharmacy for lidocaine patch Critical Care Critical Care Time Critical Care Time: No
[2024-03-08 18:13] VITALS: BP 113/79; PULSE 75; O2SAT 99
[2024-03-08] MEDS: ACETAMINOPHEN 500MG TAB 1000 MG PO (19:04)
[2024-03-08] MEDS: METHOCARBAMOL 500MG TABLET 500 MG PO (19:04)
[2024-03-08] MEDS: LIDOCAINE 5% TRANSDERMAL PATCH 1 EACH TP (19:04)
--- NOTE | 2024-03-08 19:20 | CT_ITS ---
PROCEDURE INFORMATION: Exam: CT Chest Without Contrast; Diagnostic Exam date and time: 03/08/2024 7:33 PM Age: 48 years old Clinical indication: Chest wall pain; Additional info: Left-sided medial costal pain and deformity TECHNIQUE: Imaging protocol: Diagnostic computed tomography of the chest without contrast. Radiation optimization: All CT scans at this facility use at least one of these dose optimization techniques: automated exposure control; mA and/or kV adjustment per patient size (includes targeted exams where dose is matched to clinical indication); or iterative reconstruction. COMPARISON: CR XR CHEST PORTABLE 12/30/2020 11:20 PM FINDINGS: Lungs: Small biapical bulla. Small calcified granuloma right lower lobe.. No consolidation. No masses. Pleural spaces: Unremarkable. No pneumothorax. No pleural effusion. Heart: Unremarkable. No cardiomegaly. No pericardial effusion. Lymph nodes: Calcified right hilar lymph nodes.. No enlarged lymph nodes. Vasculature: No significant coronary artery calcifications. No aortic aneurysm. Spleen: Calcified splenic granulomas. Bones/joints: Scoliosis convex to the right of the thoracic spine. No acute fracture. Soft tissues: Unremarkable. IMPRESSION: 1. No acute findings. 2. Scoliosis convex to the right of the thoracic spine image 1001/61. 3. Multifocal left medial rib deformities likely due to the scoliosis; for example image 4/41 bone window
--- NOTE | 2024-03-08 19:22 | PC.NURSE ---
Sarmad Qureshi PA-C wanted CT chest wo, the order is with contrast. I notified radiology of this change to WO contrast, and new order placed.
--- NOTE | 2024-03-08 19:25 | PC.NURSE ---
Report received from Radha Kaba resting quietly in room. Deneis new complaints at this time Skin pink warm and dry Resp full and easy BEVERLY x4 Speech clear and appropriate.
--- NOTE | 2024-03-08 19:28 | PC.NURSE ---
Pt ambulatory to CT scan
[2024-03-08 19:44] VITALS: BP 118/82; PULSE 67; RESP 16; TEMP 36.9; O2SAT 100
[2024-03-08 22:32] VITALS: BP 148/79; PULSE 70; RESP 18; TEMP 36.8; O2SAT 98
== END 2024-03-08 22:33 | disposition home or self-care (01) ==
PROVIDERS: Emergency Provider Emergency Medicine; PCP Internal Medicine
DX: S23.29XA Dislocation of other parts of thorax, initial encounter (principal); R07.89 Other chest pain; X50.0XXA Overexertion from strenuous movement or load, initial encounter; Y93.89 Activity, other specified; Y92.89 Other specified places as the place of occurrence of the external cause
CPT/HCPCS: 71250; 99284

== ENCOUNTER 2024-09-06 11:00 | Outpatient (RCR) | payer OTHER, SELFPAY ==
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
== END 2024-09-06 23:59 | disposition home or self-care (01) ==
LOC: OT 11:00
PROVIDERS: PCP Internal Medicine; Visit Provider Physician Assistant
DX: M25.311 Other instability, right shoulder (principal); M25.511 Pain in right shoulder; M67.911 Unspecified disorder of synovium and tendon, right shoulder
CPT/HCPCS: 97110; 97140; 97166; 97530

== ENCOUNTER 2024-10-05 14:00 | Outpatient (RCR) | payer OTHER, SELFPAY ==
--- NOTE | 2024-09-28 11:05 | HMH.RHREAS ---
Rehab Reassessment Rehab OP Re-assessment Start: 09/15/24 14:49 Freq: Status: Active Protocol: Document 09/28/24 09:58 SEAMUS (Rec: 09/28/24 11:05 SEAMUS [id number]) E-signed By PEYTON WylieDASH Activities Please rate your ability to do the following activities in the last week by selecting the number below the appropriate response. 1. Open a tight or new jar. Severe difficulty 2. 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 3. Carry a shopping bag or briefcase. Moderate difficulty 4. Wash your back. Unable 5. Use a knife to cut food. Moderate difficulty 6. Recreational activities in which you Unable take some force or impact through your arm, shoulder, or hand (e.g., golf, hammering, tennis, etc.). 7. During the past week, to what extent Extremely has your arm, shoulder or hand problem interfered with your normal social activities with family, friends, neighbors or groups? 8. During the past week, were you Unable limited in your work or other regular daily activites as a result of your arm, shoulder or hand problem? 9. Arm, shoulder or hand pain. Extreme 10. Tingling (pins and needles) in your Severe arm, shoulder or hand. 11. During the past week, how much Severe difficulty difficulty have you had sleeping because of the pain in your arm, shoulder or hand? Quick DASH 47 Rehab Re-assessment Subjective Subjective The pain isn't really any better. Objective Objective Notes Pt continues to be seen twice a week in order to address right shoulder deficits. Each session, pt engages in R shoulder AROM, AAROM, and strengthening exercises. Pt also receives PROM manual stretching to right shoulder in all planes; flexion, abduction, ER, and IR. Modalities are provided in order to decrease pain/ inflammation. Assessment Progress Assessment Progressing as Expected Assessment Notes Pt is consistent about attending therapy sessions. Pt recently returned to ortho ~1 week ago. Pt is scheduled to have a MRI on shoulder on October 06. Pt's AROM has improved slightly since initial evaluation, but still remains limited. Pt's pain is still reaching 10/10 at worst . Current AROM R shoulder Flex: 134 degrees Abd: 126 degrees ER: 82 degrees IR: [address] goals [address], 2, 3 and 5 Goals Not Met See below Revised Goals ST and 6 LT-6 Plan Plan Continue with OT plan of care at this time. Frequency of Therapy 2x's a week Duration of therapy 6 more weeks Time and Billing Re-Eval Time 8 Re-Eval Billing Units 1 Charge for OT reassessment? Yes PHYSICIAN CERTIFICATION: I certify the specified therapy services for Brandon Meehan are required, authorized, and reviewed every 30 days.
== END 2024-10-05 23:59 | disposition home or self-care (01) ==
LOC: OT 14:00
PROVIDERS: PCP Internal Medicine; Visit Provider Physician Assistant
DX: M67.911 Unspecified disorder of synovium and tendon, right shoulder (principal); M25.311 Other instability, right shoulder
CPT/HCPCS: 97110; 97140; 97168

== ENCOUNTER 2024-10-06 15:23 | Outpatient (CLI) | payer OTHER, SELFPAY ==
--- NOTE | 2024-10-06 15:30 | MR_ITS ---
FINAL REPORT CLINICAL HISTORY: rt shoulder pain COMPARISON: None FINDINGS: Multi planar MR imaging of the right shoulder was performed. There is a large defect measuring 1.6 cm of the distal supraspinatus tendon, well seen on image 12 of series 6. There is fluid throughout the subacromial/subdeltoid bursa. The posterior labrum appears intact. There is a defect across the anterior labrum consistent with a tear. The subscapularis tendon is intact. There is a split type tear of the biceps tendon well seen on images 16-20 of series 3. The acromioclavicular joint appears intact. IMPRESSION: High-grade partial full-thickness tear distal supraspinatus tendon with 1.6 cm of retraction. Defect across the base of the anterior labrum. Split type tear proximal biceps tendon. Reviewed, Interpreted and Dictated by Arie Trevino MD Transcribed by Naomi Stewart Authenticated and [facility]
== END 2024-10-06 23:59 | disposition home or self-care (01) ==
PROVIDERS: Visit Provider Physician Assistant
DX: M75.111 Incomplete rotator cuff tear or rupture of right shoulder, not specified as traumatic (principal); S46.211A Strain of muscle, fascia and tendon of other parts of biceps, right arm, initial encounter
CPT/HCPCS: 73221

== ENCOUNTER 2024-10-13 13:38 | Outpatient (RCR) | payer OTHER, SELFPAY | END 2024-10-13 23:59 | disposition home or self-care (01) | LOC: OT 13:38 | PROVIDERS: PCP Internal Medicine; Visit Provider Physician Assistant | DX: M67.911 Unspecified disorder of synovium and tendon, right shoulder (principal); M25.311 Other instability, right shoulder; M25.511 Pain in right shoulder ==

== ENCOUNTER 2024-11-03 08:48 | Outpatient (CLI) | payer OTHER, SELFPAY ==
--- NOTE | 2024-11-03 09:13 | ECG_ITS ---
APPROVED REPORT Exam: Resting ECG HR:60 bpm ECG Measurements Heart Rate 60 AXES MA 152 P 45 QRSd 86 QRS 0 QT 394 T 59 QTc 394 Conclusion SINUS RHYTHM LOW QRS VOLTAGE IN PRECORDIAL LEADS SEPTAL changes are new since 2022 ABNORMAL ECG UNCONFIRMED REPORT Electronically signed by : Edgar Diaz MD 11/04/2024 07:51:46
--- NOTE | 2024-11-03 09:21 | XR_ITS ---
FINAL REPORT CLINICAL HISTORY: Surgery..SMOKER..SOA COMPARISON: 12/30/2020 FINDINGS: No acute pulmonary density is evident. There is no evidence of effusion or other pleural disease. The mediastinum has a normal appearance. The cardiac silhouette is unremarkable. There is advanced scoliosis. IMPRESSION: No acute findings. Reviewed, Interpreted and Dictated by Yvette Briggs MD Transcribed by Glo Mario Authenticated and . [facility]
[2024-11-03 09:29] LABS: Basophils % 0.7 % (0.1-2.0); Eosinophils # 0.1 Kmm3 (0.0-0.4); Eosinophils % 2.5 % (0.1-12.0); Hematocrit 35.9 % (42.0-52.0); Hemoglobin 12.4 g/dL (14.1-18.0); Immature Granulocytes # 0 10^3uL; Immature Granulocytes % 0 %; Lymphocytes # 2.1 K/mm3 (0.7-4.5); Lymphocytes % 50.6 % (10-50); Mean Corpuscular HGB Conc 34.5 g/dL (31.8-35.4); Mean Corpuscular Volume 83.9 fl (80-94); Mean Platelet Volume 9.2 fl (7.4-10.4); Monocytes # 0.5 K/mm3 (0.1-1.0); Monocytes % 11.9 % (1.7-9.3); Neutrophils # 1.4 K/mm3 (1.8-7.8); Neutrophils % 34.3 % (37.0-80.0); Nucleated Red Blood Cells # 0 10^3/uL; Nucleated Red Blood Cells % 0 %; Platelet Count 193 K/mm3 (142-424); Red Blood Count 4.28 M/mm3 (4.60-6.20); Red Cell Distribution Width 12.9 % (11.5-17.5); Red Cell Distribution Width-SD 38.9 fL; White Blood Count 4.1 K/mm3 (4.8-10.8)
[2024-11-03 09:30] LABS: Chloride 100 mmol/L (98-107); Potassium 3.9 mmoL/L (3.5-5.1); Sodium 140 mmol/L (136-145)
[2024-11-03 09:33] LABS: Anion Gap 14.9 mEq/L (5-15); Blood Urea Nitrogen 15 mg/dl (9-20); Calcium 9.3 mg/dl (8.4-10.2); Carbon Dioxide 29 mmol/L (22.0-30.0); Estimated Glomerular Filt Rate 102 ml/min (>60); GFR (African American) 124 ML/MIN (>60); Glucose 99 mg/dl (74-100)
== END 2024-11-03 23:59 | disposition home or self-care (01) ==
LOC: PREOP 08:49
PROVIDERS: Physician Assistant; Visit Provider Orthopaedic Surgery
DX: Z01.810 Encounter for preprocedural cardiovascular examination (principal); Z01.811 Encounter for preprocedural respiratory examination; Z01.812 Encounter for preprocedural laboratory examination; R94.31 Abnormal electrocardiogram [ECG] [EKG]; F17.200 Nicotine dependence, unspecified, uncomplicated; S73.191A Other sprain of right hip, initial encounter; M75.101 Unspecified rotator cuff tear or rupture of right shoulder, not specified as traumatic
CPT/HCPCS: 71046; 80048; 85025; 93005

== ENCOUNTER 2024-11-14 06:02 | Day surgery (SDC) | payer OTHER, SELFPAY ==
[2024-11-03 13:51] VITALS: BMI 20.7
[2024-11-14] VITALS (10 sets, daily range): BP systolic 108–128; BP diastolic 67–86; PULSE 66–99; RESP 14–20; TEMP 36.1–36.3; O2SAT 97–100; BMI 20.7
[2024-11-14] MEDS: LACTATED RINGERS 1000ML 1,000 ML 100 ML IV (06:41)
[2024-11-14] MEDS: CLINDAMYCIN PHOSPHATE/D5W 900 MG/50 ML PIGGYBACK 100 MG IV (07:34)
[2024-11-14] MEDS: SODIUM CHLORIDE IRRIG 25 ML IR (08:12)
[2024-11-14] MEDS: EPINEPHrine 1MG/ML 30ML VIAL 30 MG ×2 (08:12→08:40)
--- NOTE | 2024-11-14 08:52 | P.OP_ITS ---
Date of procedure: 11/14/24 Pre-op Diagnosis:: Right shoulder rotator cuff tear Right shoulder biceps tendon tear Post-op Diagnosis:: Right shoulder full-thickness tear supraspinatus Right shoulder near full-thickness tearing biceps intra-articular Procedure performed:: 1. Right shoulder arthroscopy with rotator cuff repair 2. Right shoulder arthroscopy with biceps tenolysis/debridement Surgeon:: Esvin Garcia DO Talent Recruiter(s):: Julius BRUSH SUSTAINABLE AGRICULTURE SPECIALIST:: Rowdy Valdez Anesthesia: GETA and regional Estimated blood loss (mL): 0 Operative findings:: See dictation as above and below Operative note:: Patient identified preoperatively. Right shoulder marked with yes my initials. Underwent block with anesthesia. Taken to the operating room and then placed upon the operating bed. General anesthesia was administered and airway secured. Then placed in a lateral position with a beanbag with all bony prominences well-padded and then axillary roll placed. Right shoulder was then prepped and draped in normal sterile fashion. Once prepped and draped final operative timeout performed to identify proper patient procedure and extremity. Everyone involved in the case agreed. There is no counter indications to beginning. Did receive preoperative antibiotics. Marking pen was used to matthew the bony landmarks of the shoulder and standard portal sites. Skin knife is used to incise posterior viewing portal and blunt with trocar was placed into the glenohumeral joint and exchanged with a camera. I slid directly above the subscapularis tendon where the anterior working portal was made switching stick was placed and a purple working cannula was placed then switched this with the probe intra-articular there is some mild fraying at the base of the labrum with no detached tears of the labrum the cartilage was slightly softened but intact for the glenoid and the humerus. There is evidence of a near full-thickness tearing of the biceps around 50% of the body of the biceps so biceps tenolysis was performed and debridement with the Fischer electrocautery wand. Intra-articular area looked up at the rotator cuff there is evidence of a full- thickness tear. Cannula was then placed in the subacromial space within the subacromial space there was not a significant amount of subacromial bursitis the working cannula was also switched to the subacromial space and a lateral portal was established and a passport cannula was placed. Attention was then brought to repair of the rotator cuff there is evidence of a full-thickness tear of the supraspinatus the footprint was then debrided with the shaver for a bleeding bed for repair and attention was brought to repair of the rotator cuff. Scorpion needle was open and the scorpion was utilized to place fiber tape t hrough the torn rotator cuff ends which were then brought over to anchor and a speed fix technique fashion which gave good repair of the rotator cuff and complete repair of the tear. Once this was complete the camera was placed in the lateral position to evaluate the repair which was a good repair to close the rotator cuff tear defect and repair of the rotator cuff tendon. Camera was then removed the joint was drained skin closed with nylon stitch sterile dressings placed. Patient is in placed in pillow and sling taken recovery room in stable condition. Condition: stable Disposition: PACU Complications:: None apparent
--- NOTE | 2024-11-14 09:09 | EXP.ANES.I ---
[facility] Anesthesia Record Part I Anesthesia Record I Intake, IV Amount: 700 Hydration: Adequate Estimated blood loss (mL): 15 Urine output (mL): 0 Blood Products used (#): none Blood Pressure: 108/67 SaO2: 97 Pulse Rate: 66 Airway Patency: Patent Respiratory Rate: 14 Temperature: 97 F Patient is:: Drowsy and Stable
--- NOTE | 2024-11-14 09:39 | SUR.PHASEI ---
0935- Patient VSS and no complaints of pain. Block was done on right shoulder in preop. Patient can wiggle his fingers at this time on the right hand but otherwise still numb. Alert and oriented x3. Dressing clean, dry and intact. 0936- Patient transported via stretcher to Post-op. detailed report given to ANGEL LUIS Smart.
--- NOTE | 2024-11-14 09:53 | EXP.ANES.CKL ---
[facility] Disclaimer: The information contained in this section may have been updated after the patient was seen, as this information can be updated by other users. Medical History Nightmares associated with chronic post-traumatic stress disorder Posttraumatic stress disorder History of venomous spider bite Surgical History History of surgery History of eye surgery Family History Other Family history of cancer Family history of heart disease Social History (Updated 11/14/24 @ 06:20 by Celia Adrian RN) Smoking Status: Current every day smoker tobacco type: cigarettes packs per day: 2 second hand exposure: Yes alcohol intake: never counseling given: No substance use type: former substance user and unknown counseling given: No current occupational status: unemployed Travel in the last 8 weeks?: None adopted: No caregiver/support person: Yes (he has a 4 year old daughter) foster care: No household members: spouse housing: house lives independently: Yes marital status: number of children: 10 number of grandchildren: 6 education level: other details: went to the 7th grade; he was young and crazy; no GED Hx Recent Travel: No sexually active: No caffeine: Yes physical activity: none mark/faith: None special mark needs: No working smoke detector in home: Yes fire extinguisher in home: No carbon monox detector in home: No firearms in home: No do you feel safe at home: Yes [facility] Anesthesia Checklist Patient Identification Patient Identification: Arm Band Structural Data Admitted From: Home Planned Operative Procedure/s: Right Shoulder Arthroscopy, Rotator Cuff Repair Consent for Planned Operative Procedure(s) Verified: Yes Verified Documents: Surgical Consent and History and Physical NPO Status Verified Time NPO: 00:00 Additional verifications Anesthesia Reactions: No Hx Blood Transfusions: No Blood Transfusion Reaction: No Airway Assessment Mallampati Score:: Class II C-Spine Mobility Assessed: Yes TMJ Mobility Assessed: Yes Neurological Assessment Level of Consciousness: Awake, Alert and Appropriate Anesthesia Plan Anesthesia Risk discussed: Yes Anesthesia Plan: Verified ASA Class: II Anesthesia Type: General w/block (Right Interscalene Nerve Block. Risks/benefits explained. Pt verbalized understanding)
--- NOTE | 2024-11-14 09:54 | P.PNANES_ITS ---
[facility] Anesthesia Record Part II Anesthesia Record Part II Discharge Time: 09:35 Destination: Surgical Day Care (OP Surgery) PACU nurse assessment reviewed?: Yes Patient Condition:: Good Anesthesia Complications:: None Swallowing reflex intact?: Yes Airway Patency: Patent Cyanosis?: No Blood Pressure: 127/81 SaO2: 97 Respiratory Rate: 18 Pulse Rate: 81 Temperature: 97.2 F Mental Status: Alert & Oriented Pain level:: 0 Nausea and/or vomitting:: None Intake, IV Amount: 0 Hydration: Adequate
== END 2024-11-14 10:02 | disposition home or self-care (01) ==
PROVIDERS: PCP Family Medicine; Visit Provider Orthopaedic Surgery
PROC: (CPT 29805; principal; 2024-11-14 07:30)
DX: S46.011A Strain of muscle(s) and tendon(s) of the rotator cuff of right shoulder, initial encounter (principal); S46.211A Strain of muscle, fascia and tendon of other parts of biceps, right arm, initial encounter; S73.191A Other sprain of right hip, initial encounter; F43.12 Post-traumatic stress disorder, chronic; F17.210 Nicotine dependence, cigarettes, uncomplicated; Z79.899 Other long term (current) drug therapy; X58.XXXA Exposure to other specified factors, initial encounter; Z88.0 Allergy status to penicillin
CPT/HCPCS: 29827; 64415; 96374; C1713; J0169; J0666; J0736; J1100; J2003; J2250; J2405; J2704; J3010; J7120

== ENCOUNTER 2025-02-06 14:00 | Outpatient (RCR) | payer OTHER, SELFPAY | END 2025-02-06 23:59 | disposition home or self-care (01) | LOC: OT 14:00 | PROVIDERS: Visit Provider Orthopaedic Surgery | DX: S46.011D Strain of muscle(s) and tendon(s) of the rotator cuff of right shoulder, subsequent encounter (principal) | CPT/HCPCS: 97110; 97140; 97165; 97530 ==

== ENCOUNTER 2025-02-12 11:28 | Outpatient (CLI) | payer OTHER, SELFPAY ==
[2025-02-12 11:33] LABS: Microscopic, Urine URINE MICROSCOPIC (MICROSCOPIC)
[2025-02-12 12:55] LABS: Blood Urea Nitrogen 17 mg/dl (9-20); Creatinine,Serum 0.70 mg/dl (0.66-1.25); Estimated Glomerular Filt Rate 119 ml/min (>60); GFR (African American) 144 ML/MIN (>60)
[2025-02-12 21:03] LABS: Color,Urine YELLOW (Yellow); Glucose,Urine (UA) Negative (Negative); Ketones,Urine Negative (Negative); Leukocyte Esterase,Urine Negative (Negative); PH,Urine 5.5 (5.0-8.5); Protein,Urine Negative (Negative); Specific Gravity, Urine >= 1.030 (1.005-1.030); Urobilinogen,Urine 1.0 EU/dl (0.2)
[2025-02-12 21:06] LABS: Bilirubin,Urine Negative (Negative)
[2025-02-12 21:36] LABS: Bacteria,Urine 1+ /lpf; Calcium Oxalate Crystals,Urine 2+ /lpf; Mucus,Urine 1+ /lpf
== END 2025-02-12 23:59 | disposition home or self-care (01) ==
LOC: LAB 11:29
PROVIDERS: PCP Nurse Practitioner Family; Visit Provider Urology
DX: N50.819 Testicular pain, unspecified (principal)
CPT/HCPCS: 36415; 81001; 82565; 84520; G0103

== ENCOUNTER 2025-02-19 13:46 | Emergency (ER) | payer OTHER, SELFPAY ==
[2025-02-19 13:48] VITALS: BP 123/74; PULSE 89; RESP 18; TEMP 36.4; O2SAT 98; BMI 19.5
[2025-02-19 13:53] VITALS: BP 123/74; PULSE 90; RESP 20; O2SAT 98
--- NOTE | 2025-02-19 13:55 | XR_ITS ---
FINAL REPORT TECHNIQUE: Single view chest CLINICAL HISTORY: side pain COMPARISON: 11/03/2024 FINDINGS: A single view of the chest was obtained. The heart and mediastinum are within normal limits. The lungs are clear. There is no pneumothorax. IMPRESSION: No acute cardiopulmonary process. Reviewed, Interpreted and Dictated by Fiordaliza Summers MD Transcribed by Rosario Bowden Authenticated and [facility]
[2025-02-19] MEDS: ACETAMINOPHEN 500MG TAB 1000 MG PO (13:59)
--- NOTE | 2025-02-19 14:00 | PC.NURSE ---
Pt medicated with tylenol and sat back in lobby to wait for room
--- NOTE | 2025-02-19 14:40 | ED_ITS ---
Discharge Plan Disposition Patient Disposition: Home, Self-Care Condition: Good Prescriptions Prescriptions: New naproxen 500 mg tablet 500 mg PO BID PRN (Reason: pain) Qty: 60 0RF methocarbamol 750 mg tablet 1,500 mg PO Q8H Qty: 42 0RF No Action buprenorphine-naloxone 8-2 mg film 1 film sublingual DAILY tadalafil [Cialis] 5 mg tablet 5 mg PO DAILY Qty: 30 2RF Referrals Follow up/Referrals: Veto Sharma APRN [Primary Care Provider, Family Practice] - See instructions Activity Restrictions/Add. Instructions Additional Instructions/Restrictions: Please use the incentive spirometer every hour while awake to encourage your lungs to open and prevent pneumonia. The goal is to get the green meter all the way to the top, and to hold it there as long as you can. For pain you can take Naproxen and Robaxin as prescribed on the bottle. If you develop worsening pain, fever, shortness of breath, production of phlegm, or any other new or worsening symptoms please return to the ER for further evaluation. Clinical Impressions Clinical Impression: Acute chest wall pain Print Language Print Language: Israeli Discharge ED Provider: Jordan Sanders Adult HPI <Rekha Mota - Last Filed: 02/19/25 14:40> General Chief complaint: PAIN Stated complaint: [id number] Pain L side rib area Time Seen by Provider: 02/19/25 15:40 Mode of Arrival: Ambulatory Source of Information: Patient Description of Symptoms (Recalled from ER Triage Doc. by RN): Pt states he slipped getting out of the shower this morning and hit his left side/ribcage on the towel rack. Pt c/o left side pain when taking deep breaths and when walking. Related Data Home Medications ?Medication ?Instructions ?Recorded ?Confirmed buprenorphine 8 mg-naloxone 2 mg 1 film sublingual VINCE LY 02/06/25 02/19/25 sublingual film Previous Rx's ?Medication ?Instructions ?Recorded tadalafil 5 mg tablet (Cialis) 5 mg PO DAILY #30 tabs 02/12/25 methocarbamol 750 mg tablet 1,500 mg (2 x 750 mg) PO Q 8H #42 02/19/25 tabs naproxen 500 mg tablet 500 mg PO BID PRN pain #60 t abs 02/19/25 Allergies Allergy/AdvReac Type Severity Reaction Status Date / Time Penicillins Allergy Unknown Verified 02/12/25 10:01 allergy reaction <Jordan Sanders DO - Last Filed: 02/19/25 16:02> History of Present Illness HPI narrative: This is a 49-year-old male patient, with past medical history of opiate abuse on Suboxone, who is presenting to the emergency department today for evaluation of left chest wall pain. Patient states that he was in the shower and while turning in the shower he impacted his left chest wall against a rack that was in the shower. He has been having pain in the chest wall that is worse with movement of the arm as well as worse with breathing and since onset. He pi npoints this to 1 specific rib in the posterior aspect of the rib cage. He is not having any pain in the midline of the spine. He is not experiencing any motor or sensory deficits in his extremities. PFSH <Rekha Jhoanaromulo - Last Filed: 02/19/25 14:40> [facility] Disclaimer: The information contained in this section may have been updated after the patient was seen, as this information can be updated by other users. Medical History Tobacco abuse Discussed with Brandon the possibilities for him to quit smoking. His does use vaping. I have told him I am fine with this as long as it is a bridge to get him off cigarettes and then eventually off the vaping as well. He is going to think about this and let me know down the road. Wasp sting Fatigue Nightmares associated with chronic post-traumatic stress disorder Posttraumatic stress disorder History of venomous spider bite Surgical History Hx of shoulder surgery Surgery on right shoulder History of surgery l forearm spider bite History of eye surgery Family History Other Family history of cancer Family history of heart disease Social History Smoking Status: Current every day smoker tobacco type: cigarettes packs per day: 2 second hand exposure: Yes alcohol intake: never counseling given: No substance use type: former substance user and unknown counseling given: No current occupational status: unemployed Travel in the last 8 weeks?: None adopted: No caregiver/support person: Yes (he has a 4 year old daughter) foster care: No household members: spouse housing: house lives independently: Yes marital status: number of children: 10 number of grandchildren: 6 education level: other details: went to the 7th grade; he was young and crazy; no GED Hx Recent Travel: No sexually active: No caffeine: Yes physical activity: none mark/cheondoism: None special mark needs: No working smoke detector in home: Yes fire extinguisher in home: No carbon monox detector in home: No firearms in home: No do you feel safe at home: Yes Have you lived/traveled outside [place] in past 30 days?: No Contact w/someone who lives/traveled outside US past 30 days?: No Exposure to someone with infectious disease in past 14 days?: No Do you have a fever (greater than 100.4 F or 38 C)?: No Have you tested positive for COVID-19?: No Exposed to someone with COVID-19 in past 14 days?: No Do you have a sore throat?: No Do you have a cough?: No Do you have any weakness?: No Do you have any diarrhea?: No Are you experiencing any unusual bleeding?: No Do you have any muscle aches/pain?: No Do you have any abdominal pain?: No Are you experiencing loss of taste or smell?: No Other Medical History Have you received the Flu Vaccine for this season: No Have you received the Pneumonia Vaccine: No <Jordan Sanders DO - Last Filed: 02/19/25 16:02> ROS Obtained: Yes Systems reviewed as appropriate & no additional complaints except as documented Physical Exam <Jordan Sanders DO - Last Filed: 02/19/25 16:02> General General appearance: other (See MDM) Respiratory Respiratory exam: Present other (See MDM) Cardiovascular Cardiovascular exam: Present other (See MDM) Neurological Exam Neurological exam: Present other (See MDM) Medical Decision Making <Rekha Mota - Last Filed: 02/19/25 14:40> Medical Records Screening: Per USPSTF and CDC recommendations, given the prevalence of disease in our region, it is our hospital?s policy to screen for HIV and viral Hepatitis for all patients aged 18 and over and those with ongoing risk factors. Vital Signs: 02/19/25 13:48 02/19/25 13:53 02/19/25 15:12 Temperature 97.6 F 98.4 F Temperature Source Oral Oral Pulse Rate 90 69 Pulse Rate [Right] 89 Respiratory Rate 18 20 18 Blood Pressure 123/74 111/72 Blood Pressure [Right Arm] 123/74 Blood Pressure Mean [Right Arm] 90 Blood Pressure Source Automatic Cuff Automatic Cuff Blood Pressure Source [Right Arm] Automatic Cuff Blood Pressure Position Sitting Sitting Blood Pressure Position [Right Arm] Sitting 02 Sat by Pulse Oximetry 98 98 100 Oxygen Delivery Method Room Air Room Air Room Air Orders (Tests/Meds): ED MEDICATIONS Discontinued Medications Generic Name Dose Route Start Last Admin Trade Name Freq PRN Reason Stop Dose Admin Acetaminophen 1,000 mg 02/19/25 13:58 02/19/25 13:59 Acetaminophen 500mg Tab PO 02/19/25 13:59 1,000 mg ONCE ONE Administration ORDERS Category Date Time Status Chest XR -- portable [XR chest portable] Stat Exams 02/19/25 13:55 Completed <Jordan Sanders DO - Last Filed: 02/19/25 16:02> Medical Records Medical records reviewed: Yes I reviewed the patient's medical records. Gus Inquiry Pt receiving controlled substance: No Gus was queried for this patient: No Vital Signs: 02/19/25 13:48 02/19/25 13:53 02/19/25 15:12 Temperature 97.6 F 98.4 F Temperature Source Oral Oral Pulse Rate 90 69 Pulse Rate [Right] 89 Respiratory Rate 18 20 18 Blood Pressure 123/74 111/72 Blood Pressure [Right Arm] 123/74 Blood Pressure Mean [Right Arm] 90 Blood Pressure Source Automatic Cuff Automatic Cuff Blood Pressure Source [Right Arm] Automatic Cuff Blood Pressure Position Sitting Sitting Blood Pressure Position [Right Arm] Sitting 02 Sat by Pulse Oximetry 98 98 100 Oxygen Delivery Method Room Air Room Air Room Air Orders (Tests/Meds): ED MEDICATIONS Discontinued Medications Generic Name Dose Route Start Last Admin Trade Name Freq PRN Reason Stop Dose Admin Acetaminophen 1,000 mg 02/19/25 13:58 02/19/25 13:59 Acetaminophen 500mg Tab PO 02/19/25 13:59 1,000 mg ONCE ONE Administration ORDERS Category Date Time Status Chest XR -- portable [XR chest portable] Stat Exams 02/19/25 13:55 Completed Medical Decision Narrative: In summary this is a 49-year-old male patient who is presenting to the emergency department today for evaluation of left posterior chest wall pain after hitting his chest wall on a rack in the shower. The patient did not fall to the ground and did not lose conscious. He did not hit his head. The patient's comorbidities include a past medical history of opioid abuse for which he is on Suboxone. He does not have any history of COPD. On initial evaluation of the patient they were resting comfortably in no acute distress and nontoxic in appearance. They are hemodynamically stable, saturating well room air, and are neurologically intact. On physical examination of the patient he has point tenderness over 1 specific rib on the posterior aspect of the rib cage. No tenderness to the C, T, or L- spine. He has a normal breath sounds in his bilateral lung osorio. No crepitus of the chest wall. The patient seems to be breathing comfortably and has no evidence of tachypnea accessory muscle use. I have given the patient an incentive spirometer in the room and he has pulled the maximal amount on incentive spirometry. Differential diagnosis includes rib fracture, chest wall contusion, pneumothorax, among others. Workup was initiated with chest x-ray. Chest x-ray was personally interpreted by me and demonstrates no obvious displaced rib fractures or evidence of pneumothorax. official radiology read is in agreement and states that there is no acute [place]. Patient was given 1 g of acetaminophen while in the emergency department. He has remained resting comfortably and in no acute distress. My suspicion is that the patient likely has a small inconsequential nondisplaced rib fracture along the posterior aspect of the chest wall versus a chest wall contusion with muscle spasm. Given that he is breathing comfortably and is able to pull maximal volu mes on incentive spirometry I do not feel that he would benefit from further workup with a CT scan of the chest as he would not necessitate admission to the hospital. We will send him home with a prescription for naproxen as well as Robaxin for pain and muscle relaxation. I have encouraged him to use the incentive spirometer every hour and to return to the emergency department if he has any new or worsening symptoms. At this time all questions were answered and all parties were agreeable with the decision to discharge home Critical Care <Jordan Sanders DO - Last Filed: 02/19/25 16:02> Critical Care Time Critical Care Time: No
--- NOTE | 2025-02-19 15:11 | PC.NURSE ---
patient brought back into triage at this time for a vitals. alissa stated that the tylenol didnt really do much. triage staff will check with providers to see if they can give him anything else. patient sent back out tot he lobby at this time and educated on the importance of letting ER staff know of any worsening pain or shortness of breath.
[2025-02-19 15:12] VITALS: BP 111/72; PULSE 69; RESP 18; TEMP 36.9; O2SAT 100
[2025-02-19 16:13] VITALS: BP 130/80; PULSE 70; RESP 18; TEMP 36.4; O2SAT 100
== END 2025-02-19 16:14 | disposition home or self-care (01) ==
PROVIDERS: Emergency Provider Student in an Organized Health Care Education/Training Program; PCP Nurse Practitioner Family
DX: R07.89 Other chest pain (principal); F17.210 Nicotine dependence, cigarettes, uncomplicated; W18.2XXA Fall in (into) shower or empty bathtub, initial encounter
CPT/HCPCS: 71045; 99283

== ENCOUNTER 2025-02-22 14:00 | Outpatient (RCR) | payer OTHER, SELFPAY | END 2025-02-22 23:59 | disposition home or self-care (01) | LOC: OT 14:00 | PROVIDERS: Visit Provider Orthopaedic Surgery | DX: M67.911 Unspecified disorder of synovium and tendon, right shoulder (principal); M25.311 Other instability, right shoulder | CPT/HCPCS: 97110; 97140; 97530 ==

== ENCOUNTER 2025-04-25 19:06 | Emergency (ER) | payer OTHER, SELFPAY ==
[2025-04-25 19:09] VITALS: BP 104/49; PULSE 79; RESP 20; TEMP 36.9; O2SAT 98; BMI 20.2
--- NOTE | 2025-04-25 19:24 | ED_ITS ---
Discharge Plan Disposition Patient Disposition: Home, Self-Care Condition: Good Prescriptions Prescriptions: New ketorolac 10 mg tablet 10 mg PO Q8H PRN (Reason: pain) Qty: 12 0RF famotidine [Pepcid] 20 mg tablet 20 mg PO BID 14 Days Qty: 28 0RF No Action buprenorphine-naloxone 8-2 mg film 1 film sublingual DAILY tamsulosin 0.4 mg capsule 0.4 mg PO nicotine (polacrilex) 4 mg gum 4 mg buccal Q1-2H PRN (Reason: nicotine cravings) Qty: 50 2RF naproxen 500 mg tablet 500 mg PO BID PRN (Reason: pain) Qty: 60 0RF Referrals Follow up/Referrals: Veto Sharma APRN [Primary Care Provider, Family Practice] - See instructions Lui Barton II, MD [Staff Physician, Gastroenterology] - See instructions Activity Restrictions/Add. Instructions Additional Instructions/Restrictions: You were evaluated in the emergency department today. You have gallstones as well as dilation of your bile ducts, but your lab work today is reassuring against acute infection of your gallbladder or other acute concern. I recommend close follow-up with GI for further assessment, as they may want to do further testing to assess your bile ducts. Please take Tylenol and ibuprofen as needed for pain. I also recommend close follow-up with your primary care provider. Return to the emergency department right away for new or worsening symptoms such as significant worsening in pain, nausea and vomiting, fever, or other concerns. Clinical Impressions Clinical Impression: Gallstones, Dilation of biliary tract Stand Alone Forms Stand Alone Forms: Work/School Release Instructions Patient Instructions: DI for Gallstones, DI for Acute Abdominal Pain Print Language Print Language: Lao Discharge ED Provider: Jasmyne Menendez General Adult HPI <CATHLEEN Dodson - Last Filed: 04/25/25 22:15> General Chief complaint: Abdominal Pain Stated complaint: right abdominal pain Time Seen by Provider: 04/25/25 19:19 Mode of Arrival: Ambulatory Source of Information: Patient Description of Symptoms (Recalled from ER Triage Doc. by RN): patient presents to the ED for right upper abdominal pain that started a few days ago. patient rates his pain 8/10 currently adn radiates into his right side. patient has no urinary issues. History of Present Illness HPI narrative: 49-year-old male presents to the emergency department with right upper quadrant pain midepigastric pain that has been ongoing for the last 2 to 3 days, patient states that eating does relieve some of his symptomatology, he denies any nausea vomiting fever chills cough congestion or shortness of breath, denies any hematochezia hematemesis hemoptysis or hematuria, no melena, no trauma or injury per history no constipation no diarrhea, patient is a current everyday smoker (vapes), denies any alcohol or drug use, other past medical history is consistent with currently on Suboxone therapy, MDD/LEONCIO, hypertension, PTSD, prior TIA/CVA however this is data deficient. Initial triage vitals were unremarkable Please note that above description of symptoms, in this electronic medical record under categorization of recalled from ER triage doctor by RN are reflective of an initial nursing assessment, however, is not reflective of my full history and physical exam that was personally taken and clarified. Consequentially, this preceding description of symptoms, which may include the patient's categorized chief complaint in the EMR, do not reflect my personal clinical impression, and the ultimate description of history of present illness and patient stated complaints should be deferred to this section of the note. Unless stated otherwise or congruent with this section of the note, additional signs, symptoms, or incongruence should be interpreted as inaccurate with my clinical impression. Onset (ago): day(s) Related Data Home Medications ?Medication ?Instructions ?Recorded ?Confirmed buprenorphine 8 mg-naloxone 2 mg 1 film sublingual VINCE LY 02/06/25 04/02/25 sublingual film tamsulosin 0.4 mg capsule 0.4 mg PO 04/02/25 04/02/25 Previous Rx's ?Medication ?Instructions ?Recorded naproxen 500 mg tablet 500 mg PO BID PRN pain #60 t abs 02/19/25 nicotine (polacrilex) 4 mg gum 4 mg buccal Q1-2H PRN n icotine 04/02/25 cravings #50 ea famotidine 20 mg tablet (Pepcid) 20 mg PO BID 2 weeks #28 tabs 04/25/25 ketorolac 10 mg tablet 10 mg PO Q8H PRN pain #12 ta bs 04/25/25 Allergies Allergy/AdvReac Type Severity Reaction Status Date / Time Penicillins Allergy Unknown Verified 04/02/25 13:05 allergy reaction PFSH <CATHLEEN Dodson - Last Filed: 04/25/25 22:15> [facility] Disclaimer: The information contained in this section may have been updated after the patient was seen, as this information can be updated by other users. Medical History (Updated 04/25/25 @ 22:48 by Jasmyne Menendez DO) Ankle injury Finger injury Tobacco abuse Wasp sting Fatigue Nightmares associated with chronic post-traumatic stress disorder Posttraumatic stress disorder History of venomous spider bite Surgical History Hx of shoulder surgery History of surgery History of eye surgery Family History Other Family history of cancer Family history of heart disease Social History Smoking Status: Light tobacco smoker tobacco type: cigarettes packs per day: 2 second hand exposure: Yes alcohol intake: never counseling given: No substance use type: former substance user and unknown counseling given: No current occupational status: unemployed Travel in the last 8 weeks?: None adopted: No caregiver/support person: Yes (he has a 4 year old daughter) foster care: No household members: spouse housing: house lives independently: Yes marital status: number of children: 10 number of grandchildren: 6 education level: other details: went to the 7th grade; he was young and crazy; no GED Hx Recent Travel: No sexually active: No caffeine: Yes physical activity: none mark/mormon: None special mark needs: No working smoke detector in home: Yes fire extinguisher in home: No carbon monox detector in home: No firearms in home: No do you feel safe at home: Yes Have you lived/traveled outside US in past 30 days?: No Contact w/someone who lives/traveled outside US past 30 days?: No Exposure to someone with infectious disease in past 14 days?: No Do you have a fever (greater than 100.4 F or 38 C)?: No Have you tested positive for COVID-19?: No Exposed to someone with COVID-19 in past 14 days?: No Do you have a sore throat?: No Do you have a cough?: No Do you have any weakness?: No Do you have any diarrhea?: No Are you experiencing any unusual bleeding?: No Do you have any muscle aches/pain?: No Do you have any abdominal pain?: No Are you experiencing loss of taste or smell?: No Other Medical History Have you received the Flu Vaccine for this season: No Have you received the Pneumonia Vaccine: No <CATHLEEN Dodson - Last Filed: 04/25/25 22:15> ROS Obtained: Yes All systems reviewed & no additional complaints except as documented Physical Exam <CATHLEEN Dodson - Last Filed: 04/25/25 22:15> General General appearance: alert and in no apparent distress Head Head exam: atraumatic and normocephalic Eye Eye exam: Present PERRL and EOMI ENT ENT exam: Present mucous membranes moist Neck Neck exam: Present normal inspection Chest Chest inspection: Present normal inspection and symmetric chest wall rise Respiratory Respiratory exam: Present normal lung sounds bilaterally; Absent respiratory distress Cardiovascular Cardiovascular exam: Present regular rate and normal rhythm Abdominal Exam Abdominal exam: Present soft, tenderness and Puentes's sign; Absent guarding, rebound or rigidity Abdominal tenderness: Present RUQ and epigastrium Extremities Exam Extremities exam: Present normal inspection Neurological Exam Neurological exam: Present alert and oriented X3 Psychiatric Psychiatric exam: Present normal affect Skin Skin exam: Present warm and dry Medical Decision Making <CATHLEEN Dodson - Last Filed: 04/25/25 22:15> Medical Records Medical records reviewed: Yes I reviewed the patient's medical records. Screening: Per USPSTF and CDC recommendations, given the prevalence of disease in our region, it is our hospital?s policy to screen for HIV and viral Hepatitis for all patients aged 18 and over and those with ongoing risk factors. Gus Inquiry Pt receiving controlled substance: No Gus was queried for this patient: No Vital Signs: 04/25/25 19:09 04/25/25 23:22 Temperature 98.5 F 98.0 F Temperature Source Oral Oral Pulse Rate 75 Pulse Rate [Right Radial] 79 Respiratory Rate 20 15 Blood Pressure 124/75 Blood Pressure [Right Arm] 104/49 L Blood Pressure Mean [Right Arm] 67 Blood Pressure Source Automatic Cuff Blood Pressure Source [Right Arm] Automatic Cuff Blood Pressure Position Sitting Blood Pressure Position [Right Arm] Sitting 02 Sat by Pulse Oximetry 98 Oxygen Delivery Method Room Air Lab Data Lab results reviewed: Yes I reviewed the patient's lab results. Lab Results 04/25/25 19:27: WBC 4.5 L, RBC 4.56 L, Hgb 13.2 L, Hct 38.6 L, MCV 84.6, MCH 28.9, MCHC 34.2, RDW 11.9, Plt Count 233, MPV 9.4, Neut % (Auto) 39.9, Lymph % (Auto) 46.6, [place] % (Auto) 10.1 H, Eos % (Auto) 2.5, Baso % (Auto) 0.7, Neut # (Auto) 1.8, Lymph # (Auto) 2.1, [place] # (Auto) 0.5, Eos # (Auto) 0.1, Baso # (Auto) 0.0, PT 11.7, INR 1.06, D-Dimer 0.47, Sodium 136, Potassium 4.0, Chloride 102, Carbon Dioxide 27, Anion Gap 11.0, BUN 18, Creatinine 0.80, Estimated Creat Clear 103, Estimated GFR 102, Est GFR ( Amer) 124, Glucose 90, Calcium 9.1, Total Bilirubin 1.0, AST 45, ALT 33, Alkaline Phosphatase 100, Troponin I 0.02, NT-Pro-B Natriuret Pep 22.8, Total Protein 7.6, Albumin 4.9, Globulin 2.7, Albumin/Globulin Ratio 1.8, Lipase 10 L 04/25/25 20:39: Lactate 0.7, Urine Color Yellow, Urine Appearance Clear, Urine pH 5.5, Ur Specific Amo 1.025, Urine Protein Negative, Urine Glucose (UA) Negative, Urine Ketones Negative, Urine Blood Negative, Urine Nitrate Negative, Urine Bilirubin Negative, Urine Urobilinogen 1.0, Ur Leukocyte Esterase Negative, Urine RBC None, Urine WBC None, Ur Squamous Epith Cells None, Urine Bacteria None 04/25/25 22:40: Troponin I < 0.01 04/25/25 19:27 04/25/25 19:27 Orders (Tests/Meds): ED MEDICATIONS Discontinued Medications Generic Name Dose Route Start Last Admin Trade Name Freq PRN Reason Stop Dose Admin Acetaminophen 1,000 mg 04/25/25 22:49 04/25/25 22:58 Acetaminophen 500mg Tab PO 04/25/25 22:50 1,000 mg ONCE ONE Administration Belladonna Alkaloids 60 ml 04/25/25 22:49 04/25/25 22:58 Belladonna Alkaloids 60 Ml Ml PO 04/25/25 22:50 60 ml ONCE ONE Administration Famotidine 20 mg 04/25/25 22:49 04/25/25 22:58 Famotidine 20mg/2ml Vial IV 04/25/25 22:50 20 mg ONCE ONE Administration Iopamidol 75 ml 04/25/25 20:18 04/25/25 20:19 Iopamidol-370 (76%);100ml Bottle IV 04/25/25 20:19 75 ml ONCE ONE Administration Ketorolac Tromethamine 30 mg 04/25/25 22:49 04/25/25 22:58 Ketorolac 30mg/Ml Vial IV 04/25/25 22:50 30 mg ONCE ONE Administration Sodium Chloride 10 ml 04/25/25 20:18 04/25/25 20:19 Sodium Chloride 0.9% 10ml Syr (Rad Only) IV 05/25/25 20:17 10 ml NEEDED PRN Administration Maintain IV Site Sodium Chloride 8 ml 04/25/25 22:49 Sodium Chloride 0.9% 10ml Vial IV 05/25/25 22:48 NEEDED PRN dilute pepcid ORDERS Category Date Time Status CT abdomen pelvis w con Stat Cat Scan 04/25/25 20:07 Completed POCUS Point of Care (ER Only) Stat Exams 04/25/25 21:02 Completed XR chest portable Stat Exams 04/25/25 20:07 Completed Complete Blood Count Auto Diff Stat Lab 04/25/25 19:27 Completed Comprehensive Metabolic Panel Stat Lab 04/25/25 19:27 Completed D-Dimer Stat Lab 04/25/25 19:27 Completed Lactic Acid Stat Lab 04/25/25 20:39 Completed Lipase Stat Lab 04/25/25 19:27 Completed NT Pro Brain Natriuretic Pep. Stat Lab 04/25/25 19:27 Completed PT INR [Prothrombin Time INR] Stat Lab 04/25/25 19:27 Completed Troponin I Q3H Lab 04/25/25 22:40 Completed Troponin I Stat Lab 04/25/25 19:27 Completed Urinalysis and Microscopic Stat Lab 04/25/25 20:39 Completed Medical Decision Narrative: 49-year-old male presents to the emergency department with a 2 to 3-day history of right upper quadrant/midepigastric pain, differential diagnose include but not limited to, cardiac arrhythmia, electrolyte disturbance, ACS, PE, pneumonia, costochondritis, cholelithiasis, cholecystitis, choledocholithiasis, gastritis, pancreatitis, GERD, among others. Will obtain basic laboratory studies, D-dimer, lipase level lactic acid level EKG proBNP, coags, troponin, will obtain CT abdomen pelvis with contrast and chest x-ray for further evaluation/characterization, I did offer the patient analgesia patient denied at this time states his pain is tolerable. CMP is unremarkable CBC notable for neutropenia at 4.5, which is minimal, anemia with a hemoglobin of 13.2 and hematocrit 38.6 Coags within normal limits D-dimer is 0.47 thus effectively ruling out VTE/PE proBNP is within normal limits Initial troponin is 0.02, previous troponin in 2020 was the same value. No lactic acidosis I reviewed the patient's CT abdomen pelvis with contrast and with corresponding radiologic report, diffuse intra and extrahepatic biliary ductal dilation is perhaps slightly increased since prior CT in 2022, this is of uncertain etiology, consider MRCP for further evaluation, moderate stool of the colon possibly related constipation, circumferential mural thickening of the urinary bladder versus underdistention correlate with urinalysis probable cystitis I reviewed the patient's chest x-ray along the corresponding radiologic report. Due to potential for possible cystitis radiographically will obtain UA. UA is unremarkable I discussed this patient's case with the attending physician , at shift change she will be seen management of the patient's care/workup, disposition is pending GI/general surgery consultation for inpatient versus outpatient management. Limited RUQ ultrasound Indication: [-Abdominal pain s] Identified structures: -Gallbladder -Gallbladder wall -Common bile duct -Liver Findings: Sonographic Puentes sign: [Present] Gallstones: [Present] Sludge: [Present] Pericholecystic fluid: [Absent] Impression: [-Normal gallbladder] [-Cholelithiasis with no acute evidence of cholecystitis, gallstones present with some gallbladder sludge] Images [were saved] to permanent archive The study [was] technically adequate CPT 70921-40 This study was performed by me, and I personally interpreted all images/videos. Based on my clinical judgement, these images were [adequate/inadequate] and [did/did not] necessitate further imaging. <Jasmyne Menendez, DO - Last Filed: 04/25/25 23:28> Vital Signs: 04/25/25 19:09 04/25/25 23:22 Temperature 98.5 F 98.0 F Temperature Source Oral Oral Pulse Rate 75 Pulse Rate [Right Radial] 79 Respiratory Rate 20 15 Blood Pressure 124/75 Blood Pressure [Right Arm] 104/49 L Blood Pressure Mean [Right Arm] 67 Blood Pressure Source Automatic Cuff Blood Pressure Source [Right Arm] Automatic Cuff Blood Pressure Position Sitting Blood Pressure Position [Right Arm] Sitting 02 Sat by Pulse Oximetry 98 Oxygen Delivery Method Room Air Lab Data Lab Results 04/25/25 19:27: WBC 4.5 L, RBC 4.56 L, Hgb 13.2 L, Hct 38.6 L, MCV 84.6, MCH 28.9, MCHC 34.2, RDW 11.9, Plt Count 233, MPV 9.4, Neut % (Auto) 39.9, Lymph % (Auto) 46.6, [place] % (Auto) 10.1 H, Eos % (Auto) 2.5, Baso % (Auto) 0.7, Neut # (Auto) 1.8, Lymph # (Auto) 2.1, [place] # (Auto) 0.5, Eos # (Auto) 0.1, Baso # (Auto) 0.0, PT 11.7, INR 1.06, D-Dimer 0.47, Sodium 136, Potassium 4.0, Chloride 102, Carbon Dioxide 27, Anion Gap 11.0, BUN 18, Creatinine 0.80, Estimated Creat Clear 103, Estimated GFR 102, Est GFR ( Amer) 124, Glucose 90, Calcium 9.1, Total Bilirubin 1.0, AST 45, ALT 33, Alkaline Phosphatase 100, Troponin I 0.02, NT-Pro-B Natriuret Pep 22.8, Total Protein 7.6, Albumin 4.9, Globulin 2.7, Albumin/Globulin Ratio 1.8, Lipase 10 L 04/25/25 20:39: Lactate 0.7, Urine Color Yellow, Urine Appearance Clear, Urine pH 5.5, Ur Specific Amo 1.025, Urine Protein Negative, Urine Glucose (UA) Negative, Urine Ketones Negative, Urine Blood Negative, Urine Nitrate Negative, Urine Bilirubin Negative, Urine Urobilinogen 1.0, Ur Leukocyte Esterase Negative, Urine RBC None, Urine WBC None, Ur Squamous Epith Cells None, Urine Bacteria None 04/25/25 22:40: Troponin I < 0.01 Orders (Tests/Meds): ED MEDICATIONS Discontinued Medications Generic Name Dose Route Start Last Admin Trade Name Melissa PRN Reason Stop Dose Admin Acetaminophen 1,000 mg 04/25/25 22:49 04/25/25 22:58 Acetaminophen 500mg Tab PO 04/25/25 22:50 1,000 mg ONCE ONE Administration Belladonna Alkaloids 60 ml 04/25/25 22:49 04/25/25 22:58 Belladonna Alkaloids 60 Ml Ml PO 04/25/25 22:50 60 ml ONCE ONE Administration Famotidine 20 mg 04/25/25 22:49 04/25/25 22:58 Famotidine 20mg/2ml Vial IV 04/25/25 22:50 20 mg ONCE ONE Administration Iopamidol 75 ml 04/25/25 20:18 04/25/25 20:19 Iopamidol-370 (76%);100ml Bottle IV 04/25/25 20:19 75 ml ONCE ONE Administration Ketorolac Tromethamine 30 mg 04/25/25 22:49 04/25/25 22:58 Ketorolac 30mg/Ml Vial IV 04/25/25 22:50 30 mg ONCE ONE Administration Sodium Chloride 10 ml 04/25/25 20:18 04/25/25 20:19 Sodium Chloride 0.9% 10ml Syr (Rad Only) IV 05/25/25 20:17 10 ml NEEDED PRN Administration Maintain IV Site Sodium Chloride 8 ml 04/25/25 22:49 Sodium Chloride 0.9% 10ml Vial IV 05/25/25 22:48 NEEDED PRN dilute pepcid ORDERS Category Date Time Status CT abdomen pelvis w con Stat Cat Scan 04/25/25 20:07 Completed POCUS Point of Care (ER Only) Stat Exams 04/25/25 21:02 Completed XR chest portable Stat Exams 04/25/25 20:07 Completed Complete Blood Count Auto Diff Stat Lab 04/25/25 19:27 Completed Comprehensive Metabolic Panel Stat Lab 04/25/25 19:27 Completed D-Dimer Stat Lab 04/25/25 19:27 Completed Lactic Acid Stat Lab 04/25/25 20:39 Completed Lipase Stat Lab 04/25/25 19:27 Completed NT Pro Brain Natriuretic Pep. Stat Lab 04/25/25 19:27 Completed PT INR [Prothrombin Time INR] Stat Lab 04/25/25 19:27 Completed Troponin I Q3H Lab 04/25/25 22:40 Completed Troponin I Stat Lab 04/25/25 19:27 Completed Urinalysis and Microscopic Stat Lab 04/25/25 20:39 Completed ECG Data Tracing #1: I reviewed this ECG and interpreted as documented below: I independently interpreted EKG at 2014 and noted sinus rhythm with a ventricular rate of [address] changes concerning for ischemia. Normal intervals ECG initial impression date: 04/25/25 ECG initial impression time: 20:15 Medical Decision Narrative: 49-year-old male presents to the emergency department with a 2 to 3-day history of right upper quadrant/midepigastric pain, differential diagnose include but not limited to, cardiac arrhythmia, electrolyte disturbance, ACS, PE, pneumonia, costochondritis, cholelithiasis, cholecystitis, choledocholithiasis, gastritis, pancreatitis, GERD, among others. Will obtain basic laboratory studies, D-dimer, lipase level lactic acid level EKG proBNP, coags, troponin, will obtain CT abdomen pelvis with contrast and chest x-ray for further evaluation/characterization, I did offer the patient analgesia patient denied at this time states his pain is tolerable. CMP is unremarkable CBC notable for neutropenia at 4.5, which is minimal, anemia with a hemoglobin of 13.2 and hematocrit 38.6 Coags within normal limits D-dimer is 0.47 thus effectively ruling out VTE/PE proBNP is within normal limits Initial troponin is 0.02, previous troponin in 2020 was the same value. No lactic acidosis I reviewed the patient's CT abdomen pelvis with contrast and with corresponding radiologic report, diffuse intra and extrahepatic biliary ductal dilation is perhaps slightly increased since prior CT in 2022, this is of uncertain etiology, consider MRCP for further evaluation, moderate stool of the colon possibly related constipation, circumferential mural thickening of the urinary bladder versus underdistention correlate with urinalysis probable cystitis I reviewed the patient's chest x-ray along the corresponding radiologic report. Due to potential for possible cystitis radiographically will obtain UA. UA is unremarkable I discussed this patient's case with the attending physician , at shift change she will be seen management of the patient's care/workup, disposition is pending GI consultation for inpatient versus outpatient management. DO Shon: I was consulted by the MACY, and we discussed the complexity of the problems being addressed. I approved the treatment and management plan for this patient's care in the emergency department, thus performing a substantive portion of the medical decision making. Work appears concerning for biliary ductal dilatation with normal CMP, including normal liver enzymes, normal bilirubin, normal lipase. This appears present on prior CT from 2022 but worsened. There is no secondary findings concerning for cholecystitis. He does have moderate stool burden, so constipation could be playing a role here. I had an indirect discussion with Dr. Barton who advised the patient to follow-up outpatient for MRCP/further assessment given that there is no concerns for acute infection or changes to labs. Workup otherwise reassuring. He is feeling better. Patient is comfortable with discharge home with close GI follow up. Strict return precuations given Jasmyne Menendez DO Critical Care <CATHLEEN Dodson - Last Filed: 04/25/25 22:15> Critical Care Time Critical Care Time: No
--- OUTSIDE RECORDS SUMMARY | 2025-04-25 19:30 | XMS_ITS | Encounter Summary ---
Author Organization Healthcare Address [address] [place] [address] Care Team Providers Care Appliance Counselor Name Role Phone Jay Titus MD Primary Care Provider [phone] Pcp, No Primary Care Provider Unavailabl e Encounter Details Date Type Department Care Team (Late Contact Info) Description 04/24/2020 Orders Only External Location [address] [place] [address] Provider, External Social History Tobacco Use Types Packs/Day Years Used Date Smoking Tobacco: Never Assessed Sex and Gender Information Value Date Recorded Sex Assigned at Not on file Legal Sex Male 8:56 PM EDT Gender Identity Not on file Sexual Orientation Not on file documented as of this encounter Plan of Treatment Upcoming Encounters Date Type Department Care Team (Late st Contact Info) Description 05/02/2025 10:00 AM EST Office Visit Medical Office Building [facility] [address], [address] [place] [address] Chino Calabrese PA [address] [facility] [address] [place] [address] documented as of this encounter Procedures Procedure Name Priority Date/Time Associated Diagnosis Comments XR THORACIC OUTSIDE IMAGES 04/24/2020 6:11 PM EST documented in this encounter Results * XR THORACIC OUTSIDE IMAGES (04/24/2020 6:11 PM EST) Anatomical Region Laterality Modality Radiographic Deonna ging 04/24/2020 6:11 PM EST us External Provider IMG XR PROCEDURES Final Result documented in this encounter Visit Diagnoses Not on filedocumented in this encounter Care Teams Appliance Counselor Relationship Specialty Start Date End Date Jay Titus MD [address] [facility] [address] [place] [address] PCP - General 09/20/20 04/15/25 Pcp, [place] [address] PCP - General Family Medicine 04/16/25 documented as of this encounter
--- OUTSIDE RECORDS SUMMARY | 2025-04-25 19:30 | XMS_ITS | Encounter Summary ---
Author Organization Healthcare Address [address] [place] [address] Care Team Providers Care Supervisor Cabinetmaker Name Role Phone Jay Titus MD Primary Care Provider [phone] Pcp, No Primary Care Provider Unavailabl e Encounter Details Date Type Department Care Team (Late Contact Info) Description 04/24/2020 Orders Only External Location [address] [place] [address] Provider, External Social History Tobacco Use Types [...] Building [facility] [address] [facility], [address] [place] [address] Chino Calabrese PA [address] [facility] [address] [place] [address] documented as of this encounter Procedures Procedure Name Priority Date/Time Associated Diagnosis Comments XR OUTSIDE IMAGES 04/24/2020 6:00 PM EST documented in this encounter Results * XR OUTSIDE IMAGES (04/24/2020 6:00 PM EST) Anatomical Region Laterality Modality Radiographic Deonna ging 04/24/2020 6:00 PM EST us External Provider IMG XR PROCEDURES Final Result documented in this encounter Visit Diagnoses Not on filedocumented in this encounter Care Teams Supervisor Cabinetmaker Relationship Specialty Start Date End Date Jay Titus MD [address] [facility] [address] [place] [address] PCP - General 09/20/20 04/15/25 Pcp, [place]ha [address] [place] [address] PCP - General Family Medicine 04/16/25 documented as of this encounter
--- OUTSIDE RECORDS SUMMARY | 2025-04-25 19:30 | XMS_ITS | Encounter Summary ---
Author Organization Healthcare Address [address] [place] [address] Care Team Providers Care Annual Greenhouse Manager Name Role Phone Jay Titus MD Primary Care Provider [phone] Encounter Details Date Type Department Care Team (Late Contact Info) Description 04/12/2025 Telephone Medical Office Building [facility] [address], [address] [place] [address] Chino Calabrese PA [address] [place] [address] Social History Tobacco Use Types Packs/Day Years Used Date Smoking Tobacco: Never Assessed Sex and Gender Information Value Date Recorded Sex Assigned at Not on file Legal Sex Male 8:56 PM EDT Gender Identity Not on file Sexual Orientation Not on file documented as of this encounter Miscellaneous Notes * Telephone Encounter - Dana Meredith - 04/12/2025 2:36 PM EST CALL PLACED ACCEPTED 04/26/25 9A [facility] documented in this encounter Plan of Treatment Upcoming Encounters Date Type Department Care Team (Late Contact Info) Description 05/02/2025 10:00 AM EST Office Visit Medical Office Building [facility] [address], [address] [place] [address] Chino Calabrese PA [address] [place] [address] documented as of this encounter Visit Diagnoses Not on filedocumented in this encounter Care Teams Annual Greenhouse Manager Relationship Specialty Start Date End Date Jay Titus MD [facility] [address] [place] [address] PCP - General 09/20/20 04/15/25 documented as of this encounter
--- OUTSIDE RECORDS SUMMARY | 2025-04-25 19:30 | XMS_ITS | Clinical Summary ---
Author Organization Healthcare Address [address] [place] [address] Care Team Providers Care Head Of Marketing Analytics Name Role Phone Pcp, No Primary Care Provider Unavailabl e Encounters Date Type Department Care Team Description 04/12/2025 Telephone Medical Office Building [facility] [address], [address] [place] [address] Chino Calabrese PA from Last 3 Months Social History Tobacco Use Types Packs/Day Years Used Date Smoking Tobacco: Never Assessed Sex and Gender Information Value Date Recorded Sex Assigned at Not on file Legal Sex Male 8:56 PM EDT Gender Identity Not on file Sexual Orientation Not on file Plan of Treatment Upcoming Encounters Date Type Department Care Team (Late st Contact Info) Description 05/02/2025 10:00 AM EST Office Visit Medical Office Building [facility] [address], [address] [place] [address] Chino Calabrese PA [address] [place] [address] Health Maintenance Due Date Last Done Comments [facility]-Depression Screening 1974 [facility]-HIV Screening 1974 [facility]-Hepatitis C Screening 1974 [facility]-Infant/Child/Adol SDOH Screenings 1974 [facility]- SDOH Screenings 1992 [facility]-Adult SDOH Screenings 1992 [facility]-DTaP,Tdap,and Td Vaccine s (1 - Tdap) 1993 [facility]-Hepatitis B Vaccines (1 of 3 - 19+ 3-dose series) 1993 CT Colonography 08/25/2019 Colonoscopy 08/25/2019 FIT-DNA 08/25/2019 FIT 08/25/2019 FOBT 08/25/2019 Sigmoidoscopy 08/25/2019 [facility]-Colorectal Cancer Screening 08/25/2019 [facility]-Pneumococcal Vaccine: 50 + Years (1 of 1 - PCV) 2024 [facility]-Zoster Vaccines (1 of 2) 2024 [id number] Vaccine (1 - 20 25-26 season) 2025 [facility]-Influenza Vaccine (#1) 2025 HPV Vaccines (No Doses Required) Completed [facility]-HIB Vaccines Aged Out No longer e ligible based on patient's age to complete this topic [facility]-Hepatitis A Vaccines Aged Out No longer eligible based on patient's age to complete this topic [facility]-IPV Vaccines Aged Out No longer e ligible based on patient's age to complete this topic [facility]-Rotavirus Vaccines Aged Out No lo nger eligible based on patient's age to complete this topic Insurance [facility] [facility] MEDICAID Care Teams Head Of Marketing Analytics Relationship Specialty Start Date End Date Pcp, [place] [address] PCP - General Family Medicine 04/16/25
[2025-04-25 19:59] LABS: Hematocrit 38.6 % (42.0-52.0); Hemoglobin 13.2 g/dL (14.1-18.0); Immature Granulocytes % 0.2 %; Mean Corpuscular HGB Conc 34.2 g/dL (31.8-35.4); Mean Corpuscular Hemoglobin 28.9 pg (27.0-31.2); Mean Corpuscular Volume 84.6 fl (80-94); Nucleated Red Blood Cells % 0 %; Platelet Count 233 K/mm3 (142-424); Red Blood Count 4.56 M/mm3 (4.60-6.20); Red Cell Distribution Width-SD 36.6 fL; White Blood Count 4.5 K/mm3 (4.8-10.8)
[2025-04-25 20:05] LABS: Albumin Level 4.9 g/dl (3.5-5.0); Chloride 102 mmol/L (98-107); Potassium 4.0 mmoL/L (3.5-5.1); Sodium 136 mmol/L (136-145)
[2025-04-25 20:07] LABS: Alanine Aminotransferase 33 U/L (12-78); Albumin/Globulin Ratio 1.8 (1.1-1.8); Anion Gap 11.0 mEq/L (5-15); Aspartate Amino Transferase 45 U/L (17-59); Blood Urea Nitrogen 18 mg/dl (9-20); Carbon Dioxide 27 mmol/L (22.0-30.0); Creatinine Clearance Estimated 103 mL/min (50-200); Creatinine,Serum 0.80 mg/dl (0.66-1.25); Estimated Glomerular Filt Rate 102 ml/min (>60); GFR (African American) 124 ML/MIN (>60); Globulin 2.7 g/dL (1.3-3.2); Total Protein,Serum 7.6 g/dl (6.3-8.2)
--- NOTE | 2025-04-25 20:07 | CT_ITS ---
PROCEDURE INFORMATION: Exam: CT Abdomen And Pelvis With Contrast Exam date and time: 04/25/2025 8:19 PM Age: 49 years old Clinical indication: Abdominal pain; Other: Ruq; Additional info: Ruq pain/epigastric pain TECHNIQUE: Imaging protocol: Computed tomography of the abdomen and pelvis with contrast. Radiation optimization: All CT scans at this facility use at least one of these dose optimization techniques: automated exposure control; mA and/or kV adjustment per patient size (includes targeted exams where dose is matched to clinical indication); or iterative reconstruction. Contrast material: ISOVUE; Contrast volume: 75 ml; Contrast route: IV; COMPARISON: CT ABDOMEN PELVIS WO CON 09/27/2022 7:34 PM FINDINGS: Liver: Unremarkable. No abnormally enhancing liver lesions. Gallbladder and biliary ducts: Unremarkable. No radiopaque cholelithiasis. There is diffuse intra and extrahepatic biliary ductal dilatation to the level of the ampulla, perhaps slightly increased since prior CT on 09/27/2022. The common bile duct measures up to 13 mm. Pancreas: The pancreas is atrophic. No pancreatic ductal dilatation. Spleen: Numerous splenic calcifications. The spleen is diffusely heterogeneous, likely related to early phase of contrast enhancement. Adrenal glands: The adrenal glands are unremarkable. Kidneys and ureters: Symmetric bilateral renal enhancement. No hydronephrosis. No radiopaque renal or urinary tract stones. Stomach and bowel: The stomach is unremarkable. No bowel obstruction. There is moderate stool throughout the colon. Appendix: Appendix is unremarkable. Intraperitoneal space: No ascites or intraperitoneal free air. Vasculature: Unremarkable. Lymph nodes: No abdominal or pelvic adenopathy. Urinary bladder: Circumferential mural thickening of the urinary bladder versus underdistention. Reproductive: Prostate gland is unremarkable. Bones/joints: Pectus excavatum with mass effect on the right heart. Scoliosis. Soft tissues: Unremarkable. IMPRESSION: 1. Diffuse intra and extrahepatic biliary ductal dilatation is perhaps slightly increased since prior CT on 09/27/2022. This is of uncertain etiology. Consider MRCP for further evaluation. 2. Moderate stool throughout the colon, possibly reflecting constipation. 3. Circumferential mural thickening of the urinary bladder versus underdistention. Correlate with urinalysis for possible cystitis.
--- NOTE | 2025-04-25 20:07 | XR_ITS ---
PROCEDURE INFORMATION: Exam: XR Chest Exam date and time: 04/25/2025 8:24 PM Age: 49 years old Clinical indication: Pain; Chest pressure; Additional info: Midepigastric/chest pain. Pectis escibatum TECHNIQUE: Imaging protocol: Radiologic exam of the chest. Views: 1 view. COMPARISON: CR XR CHEST PORTABLE 02/19/2025 2:14 PM FINDINGS: Lungs: Clear lungs. Pleural spaces: No pneumothorax or pleural effusion. Heart/Mediastinum: Cardiac silhouette is normal. Bones/joints: Severe dextroscoliosis. IMPRESSION: No acute findings.
[2025-04-25 20:08] LABS: Alkaline Phosphatase 100 U/L (38-126); Bilirubin,Total 1.0 mg/dl (0.2-1.3); Calcium 9.1 mg/dl (8.4-10.2); Glucose 90 mg/dl (74-100); Lipase 10 U/L (23-300)
--- NOTE | 2025-04-25 20:12 | ECG_ITS ---
APPROVED REPORT Exam: Resting ECG HR:65 bpm ECG Measurements Heart Rate 65 AXES ND 148 P 60 QRSd 86 QRS 48 QT 381 T 66 QTc 393 Conclusion SINUS RHYTHM NORMAL ECG UNCONFIRMED REPORT Electronically signed by : TRENA DEMARCO, 04/27/2025 07:00:01
[2025-04-25] MEDS: SODIUM CHLORIDE 0.9% 10ML SYR (RAD ONLY) 10 ML IV (20:19)
[2025-04-25] MEDS: IOPAMIDOL-370 (76%);100ML BOTTLE 75 ML IV (20:19)
[2025-04-25 20:25] LABS: INR 1.06 (0.9-1.1); Prothrombin Time 11.7 seconds (10.1-12.5)
[2025-04-25 20:32] LABS: D-Dimer 0.47 ug/mL (0.0-0.5)
[2025-04-25 20:45] LABS: NT Pro Brain Natriuretic Pep. 22.8 pg/mL (0-125)
[2025-04-25 20:47] LABS: Troponin I 0.02 ng/ml (0.00-0.034)
[2025-04-25 21:34] LABS: Microscopic, Urine URINE MICROSCOPIC (MICROSCOPIC)
[2025-04-25 21:47] LABS: Bilirubin,Urine Negative (Negative); Color,Urine YELLOW (Yellow); Glucose,Urine (UA) Negative (Negative); Ketones,Urine Negative (Negative); Leukocyte Esterase,Urine Negative (Negative); PH,Urine 5.5 (5.0-8.5); Protein,Urine Negative (Negative); Specific Gravity, Urine 1.025 (1.005-1.030); Urobilinogen,Urine 1.0 EU/dl (0.2)
[2025-04-25] MEDS: FAMOTIDINE 20MG/2ML VIAL 20 MG IV (22:58)
[2025-04-25] MEDS: KETOROLAC 30MG/ML VIAL 30 MG IV (22:58)
[2025-04-25] MEDS: ACETAMINOPHEN 500MG TAB 1000 MG PO (22:58)
[2025-04-25] MEDS: BELLADONNA ALKALOIDS 60 ML ML PO (22:58)
[2025-04-25 23:14] LABS: Troponin I < 0.01 ng/ml (0.00-0.034)
[2025-04-25 23:22] VITALS: BP 124/75; PULSE 75; RESP 15; TEMP 36.7; O2SAT 98
== END 2025-04-25 23:22 | disposition home or self-care (01) ==
PROVIDERS: Physician Assistant; Emergency Provider Emergency Medicine; PCP Nurse Practitioner Family
DX: R10.11 Right upper quadrant pain (principal); K80.20 Calculus of gallbladder without cholecystitis without obstruction; K83.8 Other specified diseases of biliary tract; F17.210 Nicotine dependence, cigarettes, uncomplicated
CPT/HCPCS: 71045; 74177; 80053; 81001; 83605; 83690; 83880; 84484; 85025; 85378; 85610; 93005; 96374; 96375; 99285; J1308; J1885; Q9967